=== PATIENT | female | born 1940 | race Caucasian/White ===

== ENCOUNTER 2021-02-12 09:04 | Emergency (ER) | payer MEDICARE, MEDICAID, SELFPAY ==
[2021-02-12] VITALS (10 sets, daily range): BP systolic 135–166; BP diastolic 60–86; PULSE 71–86; RESP 18–19; TEMP 36.9; O2SAT 94–100
--- NOTE | ~2021-02-12 | CT_ITS ---
EXAMINATION: CT abdomen pelvis w con EXAM DATE: 02/12/2021 10:35 INDICATION: Epigastric abdominal pain, nausea. On antibiotics for cholecystitis. TECHNIQUE: Spiral CT of the abdomen and pelvis was performed following intravenous injection of 100 m L Omnipaque 350. Axial, coronal and sagittal images of the abdomen and pelvis were reviewed. The do se-length product (DLP) for this examination was 908.26 mGy-cm. The exposure was tailored according to patient size (auto mA exposure control), and iterative reconstruction (ASIR) was used as additiona l dose reduction technique. There is no prior study for comparison. FINDINGS: The liver, spleen, adrenal glands and pancreas are unremarkable. There are gallstones with in an otherwise unremarkable gallbladder. No evidence of obstructive biliary disease. Portal and sp lenic veins are patent. Kidneys enhance symmetrically. There is no hydronephrosis. Bladder, pelvic organs poorly visualized due to metallic artifact from bilateral hip replacements. Possible hysterec kaylynn. There is no retroperitoneal or pelvic lymphadenopathy. There is mild scattered arteriosclerot ic disease. The appendix is normal. There is extensive sigmoid colonic diverticulosis. There is no adjacent infl ammatory change to suggest diverticulitis. There is small sliding gastroesophageal hiatal hernia. Th ere is expected amount of colonic stool. No free intraperitoneal gas. The heart is normal in size . There are no pericardial or pleural effusions. The lung bases are unremarkable. There are no ost eoblastic or osteolytic lesions identified. IMPRESSION: 1. Cholelithiasis, otherwise unremarkable gallbladder without surrounding inflammation. 2. Sigmoid diverticulosis. Reviewed, dictated and finalized at location B. IMPRESSION: 1. Cholelithiasis, otherwise unremarkable gallbladder without surrounding infl ammation. 2. Sigmoid diverticulosis.
--- NOTE | 2021-02-12 09:22 | ECG_ITS ---
Measurements Intervals [place] Rate: 77 P: [place]: 0 QRS: -1 QRSD: 86 T: 123 QT: 376 QTc: 426 Interpretive Statements SINUS RHYTHM NONSPECIFIC ST & T-WAVE ABNORMALITY- HIGH LATERAL LEADS BASELINE ARTIFACT- I, II, III, AVR, AVL, AVF BORDERLINE ECG Electronically Signed On 02-12-2021 15:34:00 CDT by Enrrique Rios D.O.
--- NOTE | 2021-02-12 09:23 | ED.NAVMDI ---
HPI - Nausea/Vomiting/Diarrhea General Chief complaint: Nausea/Vomiting/Diarrhea Stated complaint: NAUSEA Time Seen by Provider: 02/12/21 09:13 Source: patient and EMS Mode of arrival: ambulatory Limitations: other (poor historian) History of Present Illness HPI Narrative: This is a 80-year-old female that presents to the emergency department for nausea. Ongoing over the last couple of days. [facility] reports that she is currently on antibiotics for cholecystitis. Patient does not report being seen at another facility, and is unsure why she is on antibiotics. Denies fever, vomiting, diarrhea, or dysuria. I did speak with nurse taking care of patient who reports she was started on Levaquin and Flagyl yesterday for presumptive cholecystitis. Related Data Allergies Allergy/AdvReac Type Severity Reaction Status Date / Time Penicillins Allergy Rash Verified 02/12/21 09:09 Review of Systems Review of Systems: CONSTITUTIONAL: Denies fever CARDIOVASCULAR: Denies chest pain RESPIRATORY: Denies dyspnea. GASTROINTESTINAL: Reports abdominal pain, nausea. Denies vomiting, or diarrhea. GENITOURINARY: Denies dysuria or hematuria. All systems reviewed & are unremarkable except as noted in HPI and below PMFSH Past Medical History Medical History (Updated 02/12/21 @ 12:30 by Deyanira Adame PA-C) History of gastroesophageal reflux (GERD) History of hypertension Social History Social History (Updated 02/12/21 @ 09:25 by Deyanira Adame PA-C) Smoking status: Never smoker Exam Narrative: GENERAL: Elderly, well-nourished, and in no acute distress. HEAD: Normocephalic, atraumatic. EYES: EOMI. CHEST: Clear to auscultation. No respiratory distress. No wheezes rales or rhonchi HEART: Regular rate and rhythm. No murmur heard. Normal peripheral pulses. ABDOMEN: Soft, nondistended, normal active bowel sounds. Mild tenderness to palpation in epigastrium, without guarding EXTREMITIES: Normal range of motion. No edema. SKIN: Warm, dry, no rash. NEURO: No focal deficits. Alert and oriented x3. PSYCH: Normal mood and affect RECTAL: Hemoccult negative Course Consultations Consultation #1: Spoke with TIERA Montelongo at [place] about patient and workup Date: 02/12/21 Time: 11:40 Vital Signs Vital signs: Vital Signs Temperature 98.5 F 02/12/21 09:04 Pulse Rate 77 02/12/21 09:04 Respiratory Rate 18 02/12/21 09:04 Blood Pressure 164/76 H 02/12/21 09:04 Pulse Oximetry 96 02/12/21 09:04 Temperature 98.5 F 02/12/21 09:04 Pulse Rate 86 02/12/21 11:31 Respiratory Rate 18 02/12/21 09:04 Blood Pressure 140/74 02/12/21 11:31 Pulse Oximetry 96 02/12/21 09:04 MDM - Nausea/Vomiting/Diarrhea MDM Narrative Medical decision making narrative: Patient presents to the ER for nausea and epigastric discomfort present over the last couple of days. She is afebrile and nontoxic-appearing. Vitals are stable. CBC is without leukocytosis. Does show normocytic anemia with a hemoglobin of 9.4. Patient does report history of anemia. She is Hemoccult negative. Metabolic panel with evidence of some kidney dysfunction. No acute electrolyte derangements. Once again unsure if this is chronic for her as I do not have any recent labs. Lipase is normal. UA without evidence of infection. CT scan of the abdomen and pelvis shows cholelithiasis without evidence of cholecystitis. Shows sigmoid diverticulosis. Patient was updated on case findings. Reports relief with [facility]. Spoke with TIERA Montelongo at [place] about patient and workup. Patient is stable and felt appropriate for further outpatient evaluation. She was given warnings to return to the ER Lab Data Result diagrams: 02/12/21 09:25 02/12/21 09:26 Labs: Lab Results 02/12/21 02/12/21 02/12/21 Range/Units 09:25 09:26 11:23 WBC 9.7 (4.5-10.0) K/mm3 RBC 3.66 L (4.2-5.4) M/mm3 Hgb 9.4 L (12.0-15.0) g/dL Hct 30.6 L (37.0-
[2021-02-12 09:38] LABS: Basophils Percent Auto 0.4 % (0.2-1.2); Eosinophils Absolute Auto 0.1 K/mm3 (0-0.3); Eosinophils Percent Auto 0.9 % (0-4.4); Hematocrit 30.6 % (37.0-47.0); Hemoglobin 9.4 g/dL (12.0-15.0); Immature Granulocyte Absolute 0.06 K/mm3 (0.00-0.031); Immature Granulocyte Percent A 0.6 % (0-0.5); Lymphocytes Absolute Auto 1.24 K/mm3 (0.9-3.2); Lymphocytes Percent Auto 12.8 % (18.3-44.2); Mean Corpuscular HGB Conc 30.7 g/dl (32-36); Mean Corpuscular Hemoglobin 25.7 pg (26-34); Mean Corpuscular Volume 83.6 fl (80-100); Monocytes Absolute Auto 0.7 K/mm3 (0.1-0.6); Monocytes Percent Auto 7.2 % (2.6-8.5); Neutrophils Absolute Auto 7.6 K/mm3 (1.3-6.7); Neutrophils Percent Auto 78.1 % (45.5-73.1); Platelet Count Result 221 k/mm3 (150-375); Red Blood Count 3.66 M/mm3 (4.2-5.4); White Blood Count 9.7 K/mm3 (4.5-10.0)
[2021-02-12] MEDS: ONDANSETRON INJ 4 MG/2 ML VIAL IV PUSH (10:06)
[2021-02-12 10:19] LABS: Alanine Aminotransferase 14 U/L (4-35); Albumin Level 3.7 g/dL (3.5-5.1); Alkaline Phosphatase 87 U/L (38-126); Anion Gap 7 mmol/L (8-16); Aspartate Amino Transferase 44 U/L (14-36); Bilirubin,Total 0.4 mg/dL (0.2-1.3); Blood Urea Nitrogen 26 mg/dL (7-17); Calcium 8.6 mg/dL (8.4-10.2); Carbon Dioxide 30 mmol/L (22-30); Chloride 101 mmol/L (98-107); Estimated CRCL calculation 26 ml/min; Estimated Glomerular Filt Rate 31; Glucose 135 mg/dL (65-110); Lipase 70 U/L (23-300); Potassium 4.1 mmol/L (3.4-5.0); Sodium 138 mmol/L (137-145)
--- NOTE | 2021-02-12 10:56 | PC.NURSE ---
Patient given bedside commode and is attempting to give urine specimen.
[2021-02-12 12:10] LABS: Add Urine Microscopic? YES; Appearance Urine Clear (Clear); Bilirubin Urine Negative (Negative); Blood Urine Negative (Negative); Color Urine Yellow (Yellow); Glucose Urine UA Negative (Negative); Ketones Urine Negative (Negative); Leukocyte Esterase Ur Negative LEU/UL (Negative); Nitrate Urine Negative (Negative); Protein Urine 2+ mg/dL (Negative); Specific Grav Ur 1.024 (1.001-1.035); Squamous Epithelial Cell Urine Few /hpf (Few); Urobilinogen Urine Negative mg/dL (<2.0); WBC Urine 0-3 /hpf
== END 2021-02-12 15:38 ==
PROVIDERS: Physician Assistant; Emergency Provider Family Medicine
DX: R11.0 Nausea (principal); N28.9 Disorder of kidney and ureter, unspecified; D64.9 Anemia, unspecified; K80.20 Calculus of gallbladder without cholecystitis without obstruction; K21.9 Gastro-esophageal reflux disease without esophagitis; I10 Essential (primary) hypertension; K57.30 Diverticulosis of large intestine without perforation or abscess without bleeding; R94.31 Abnormal electrocardiogram [ECG] [EKG]
CPT/HCPCS: 36415; 74177; 80053; 81001; 83690; 85025; 93005; 96374; 99284; J2405; Q9967

== ENCOUNTER 2022-02-19 11:02 | Inpatient (IN) | payer MEDICARE, MEDICAID, SELFPAY ==
[2022-02-19] VITALS (13 sets, daily range): BP systolic 119–156; BP diastolic 59–88; PULSE 70–82; RESP 16–20; TEMP 36.5–37.5; O2SAT 91–99
--- NOTE | ~2022-02-19 | XR_ITS ---
EXAMINATION: XR chest 2V DATE: 02/19/2022 11:30 INDICATION: Cough. Dyspnea. TECHNIQUE: Frontal and lateral views of the chest were obtained. COMPARISON: CT abdomen and pelvis 02/12/2021 FINDINGS: There is mild atelectasis at left lung base. No pleural effusion or pneumothorax. The heart size is normal. IMPRESSION: 1. Mild atelectasis at left lung base. Reviewed, dictated and finalized at location A.
--- NOTE | ~2022-02-19 | US_ITS ---
US renal BI 02/20/2022 09:58 Procedure: Realtime transabdominal ultrasound of the kidneys and bladder. Indication: Renal failure Comparison: No prior studies for comparison. Findings: Renal echotexture is normal bilaterally without hydronephrosis, contour deforming mass or r enal calculus. The right kidney measures 9.4 cm and left kidney measures 10.2 cm. Bladder within nor mal limits. Impression: 1: Unremarkable renal ultrasound. No stones, masses or hydronephrosis. Reviewed, dictated and finalized at location A. Impression: 1: Unremarkable renal ultrasound. No stones, masses or hydronephrosis.
--- NOTE | 2022-02-19 11:09 | ECG_ITS ---
Measurements Intervals [place] Rate: 72 P: 76 MO: 171 QRS: -15 QRSD: 89 T: 133 QT: 400 QTc: 440 Interpretive Statements SINUS RHYTHM ATRIAL PREMATURE COMPLEX ST-T WAVE ABNORMALITY IN HIGH LATERAL LEADS- CONSIDER ISCHEMIA BASELINE ARTIFACT- I, III, AVL ABNORMAL ECG COMPARED TO ECG 02/12/2021 10:06:22 ST-T WAVE ABNORMALITY IN HIGH LATERAL LEADS- CONSIDER ISCHEMIA NOW PRESENT Electronically Signed On 02-19-2022 11:47:23 CDT by Enrrique Rios D.O.
[2022-02-19 11:46] LABS: Basophils Absolute Auto 0.1 K/mm3 (0.0-0.1); Basophils Percent Auto 0.4 % (0.2-1.2); Eosinophils Absolute Auto 0.1 K/mm3 (0-0.3); Eosinophils Percent Auto 0.5 % (0-4.4); Hematocrit 32.5 % (37.0-47.0); Hemoglobin 10.5 g/dL (12.0-15.0); Immature Granulocyte Percent A 0.8 % (0-0.5); Lymphocytes Absolute Auto 2.05 K/mm3 (0.9-3.2); Lymphocytes Percent Auto 16.5 % (18.3-44.2); Mean Corpuscular HGB Conc 32.3 g/dl (32-36); Mean Corpuscular Hemoglobin 26.8 pg (26-34); Mean Corpuscular Volume 82.9 fl (80-100); Mean Platelet Volume 10.7 fl (7.4-10.4); Monocytes Absolute Auto 1.2 K/mm3 (0.1-0.6); Neutrophils Percent Auto 71.8 % (45.5-73.1); Platelet Count Result 250 k/mm3 (150-375); Red Blood Count 3.92 M/mm3 (4.2-5.4); Red Cell Distribution Width 13.3 % (11.5-14.5); White Blood Count 12.5 K/mm3 (4.5-10.0)
[2022-02-19 11:58] LABS: Alanine Aminotransferase 20 U/L (6-35); Albumin Level 3.6 g/dL (3.5-5.1); Alkaline Phosphatase 105 U/L (38-126); Anion Gap 11 mmol/L (8-16); Aspartate Amino Transferase 32 U/L (14-36); Bilirubin,Total 0.5 mg/dL (0.2-1.3); Blood Urea Nitrogen 52 mg/dL (7-17); Calcium 8.5 mg/dL (8.4-10.2); Carbon Dioxide 26 mmol/L (22-30); Chloride 104 mmol/L (98-107); Estimated Glomerular Filt Rate 16; Glucose 192 mg/dL (65-110); Potassium 3.6 mmol/L (3.4-5.0); Sodium 141 mmol/L (137-145)
--- NOTE | 2022-02-19 12:22 | ED.GENADULT ---
HPI - General Adult General Chief complaint: Shortness of Breath/Dyspnea Stated complaint: SOB Time Seen by Provider: 02/19/22 11:58 History of Present Illness HPI narrative: 81-year-old female presenting the emergency department for evaluation of reported hypoxia into the 80s. Patient is reportedly not on oxygen at the care facility. Patient was placed on 3 L and has since been saturating at 97%. In the emergency department patient did states she does have a cough but states this is a chronic cough. Patient states she does feel tired but denies any other complaints at this time. Patient has history of high cholesterol, peripheral vascular disease, renal failure, hypertension, GERD, type 2 diabetes. Related Data Allergies Allergy/AdvReac Type Severity Reaction Status Date / Time Penicillins Allergy Rash Verified 02/19/22 17:45 Review of Systems Review of Systems: CONSTITUTIONAL: Reports feeling tired EYES: Denies visual changes, redness, or discharge. ENT: Denies rhinorrhea, congestion, sore throat, or otalgia. CARDIOVASCULAR: Denies chest pain, palpitations, or edema. RESPIRATORY: Denies cough or dyspnea. GASTROINTESTINAL: Denies abdominal pain, nausea, vomiting, or diarrhea. GENITOURINARY: Denies dysuria or hematuria. SKIN: Denies rash or itching. MUSCULOSKELETAL: Denies back pain, joint pain, or myalgia. NEUROLOGIC: Denies headache, numbness, or weakness. [facility] Past Medical History Medical History Anemia Anxiety Chronic GERD CRF (chronic renal failure) Depression Diabetic acidosis, type II History of gastroesophageal reflux (GERD) History of hypertension Hyperlipidemia PVD (peripheral vascular disease) Surgical History Surgical History H/O total hip arthroplasty uzair History of tonsillectomy Hx of cholecystectomy Hx of colectomy Family History Family History Mother Acute myocardial infarction Sibling Hypertension Diabetes mellitus Depression Social History Social History (Updated 02/19/22 @ 17:51 by Melvi Barber NP) Social History: The patient has 4 children. She is . Her daughter Cydney mukherjee is the durable power workers compensation defense attorney for healthcare. The patient was a homemaker. She is lifelong nonsmoker. She does not use any alcohol marijuana or illicit drugs. Code status full code Smoking status: Never smoker Alcohol intake: never Substance use: never Substance use type: does not use Spiritual care concerns: No Exam Narrative: APPEARANCE: Ill-appearing HEAD: normocephalic, atraumatic. EYES: PERRLA/EOMI, conjunctivae clear. NOSE: Normal no drainage THROAT: Pharynx clear, no exudate. NECK: Supple. No adenopathy, no masses. RESPIRATORY: Airway patent, respirations nonlabored. Clear to auscultation bilaterally, no rales, rhonchi, wheezing. CARDIOVASCULAR: Regular rate and rhythm without murmurs rubs or gallops. ABDOMINAL: Soft, nontender, nondistended, normal bowel sounds MUSCULOSKELETAL: Moves all extremities. Strength/ROM intact, No edema, No calf tenderness. NEURO: Alert. Cranial nerves II through XII intact. Grossly intact SKIN: Warm, dry. Normal Color Course Course Emergency Course: Patient was hypoxic upon arrival to the emergency department patient was saturating well on her 3 L of oxygen by nasal cannula. Patient does not normally have an O2 requirement. Patient was afebrile with a leukocytosis of 12.5. Patient does have an elevated creatinine at 2.9. Patient was negative for influenza RSV and COVID. Case was discussed with hospitalist and patient was accepted for admission. Patient and family were updated on the results of the work-up and plan for admission. Patient was stable at time of admission. Vital Signs Vital signs: Vital Signs Temperature 98.9 F 02/19/22 11:05 Pulse Rate
[2022-02-19 12:51] LABS: Influenza A QL RT-PCR Negative (Negative); Influenza B QL RT-PCR Negative (Negative); SARS-CoV-2 RNA PCR Negative
[2022-02-19 13:59] LABS: Alveolar/Arterial O2 Gradient 121.9 mmHg; Base Excess ABG -0.4 mEq/l (+/-2.0); Fractional Inspired Oxygen 36 %; HCO3 ABG 24.4 mEq/l (22.0-26.0); Oxygen Content ABG 15.5 %vol (16.0-22.0); Oxygen Saturation ABG 96.7 % (95.0-100.0); Oxyhemoglobin 95.8 % THb (90.0-100.0); PCO2 ABG 40.4 mmHg (35.0-45.0); PO2 ABG 87.9 mmHg (80.0-100.0); PO2 FiO2 Ratio Arterial Blood 2.44 %; Total Hemoglobin 11.4 g/dL (12.0-18.0); pH ABG 7.398 (7.350-7.450)
[2022-02-19 14:00] LABS: Device NASAL CANNULA; Modified Allen's Test Pass; Site Drawn RIGHT RADIAL
--- NOTE | 2022-02-19 14:36 | PM.IMHP ---
H&P: HPI History of Present Illness Date/Time: 02/19/22 14:36 Chief Complaint: Shortness of breath Narrative: This is a 81-year-old female patient who came in for evaluation of hypoxia in the 80s. The patient was placed on oxygen at 3 L per nasal cannula and increase her saturations at 97%. The patient does not typically wear oxygen. Her daughter is at the bedside answering questions for her. She denies any fever chills or any nausea vomiting. Chest x-ray was read as mild atelectasis at left lung base. White count 12.5. H&H is 10.5 and 32.5. Which is above the baseline. Creatinine 2.9 which was 1.61 month ago. GFR 16. Glucose is 192. Influenza A/B and COVID negative. The patient is being admitted to inpatient status on the date of service of 02/19/2022. Review of Systems Review of Systems: See HPI All systems reviewed & are unremarkable except as noted in HPI and below Constitutional: Constitutional: Reports as per HPI and Reports no additional constitutional complaints Eyes: Eyes: Reports as per HPI and Reports no additional eye complaints ENT: Reports system reviewed and no additional complaints, except as documented and Reports Normal hearing present Cardiovascular: Cardiovascular: Reports no additional cardiovascular complaints Respiratory: Respiratory: Reports no additional respiratory complaints and Reports no additional respiratory complaints Gastrointestinal: Gastrointestinal: Reports as per HPI and Reports no additional gastrointestinal complaints Musculoskeletal: Musculoskeletal: Reports no additional musculoskeletal complaints Integumentary/Breasts: Skin/Breast: Reports system reviewed and no additional complaints, except as docu and Reports as per HPI Neurologic: Reports system reviewed and no additional complaints, except as documented, Reports as per HPI and Reports Normal hearing present Psychiatric: Psychiatric: Reports no additional psychiatric complaints and Reports as per HPI Endocrine: Endocrine: Reports no additional endocrine complaints Hematologic/Lymphatic: Hematologic/Lymphatic: Reports no additional hematologic/lymphatic complaints Allergic/Immunologic: Allergic/Immunologic: Reports no additional allergic/immunologic complaints [facility] Past Medical History Medical History Anemia Anxiety Chronic GERD CRF (chronic renal failure) Depression Diabetic acidosis, type II History of gastroesophageal reflux (GERD) History of hypertension Hyperlipidemia PVD (peripheral vascular disease) Surgical History Surgical History H/O total hip arthroplasty uzair History of tonsillectomy Hx of cholecystectomy Hx of colectomy Family History Family History Mother Acute myocardial infarction Sibling Hypertension Diabetes mellitus Depression Social History Social History (Updated 02/19/22 @ 17:51 by Melvi Barber NP) Social History: The patient has 4 children. She is . Her daughter Cydney mukherjee is the durable power research attorney for healthcare. The patient was a homemaker. She is lifelong nonsmoker. She does not use any alcohol marijuana or illicit drugs. Code status full code Smoking status: Never smoker Alcohol intake: never Substance use: never Substance use type: does not use Spiritual care concerns: No Meds Home Medications and Allergies Allergies Allergy/AdvReac Type Severity Reaction Status Date / Time Penicillins Allergy Rash Verified 02/19/22 17:45 Vital Signs Vital Signs - 24 hr 02/19/22 11:05 02/19/22 11:10 02/19/22 12:06 Temperature 37.2 C Pulse Rate 70 71 71 Respiratory Rate 17 16 Blood Pressure 147/78 H 128/88 Pulse Oximetry 97 97 Oxygen Delivery Nasal Cannula Oxygen Flow Rate 3 02/19/22 13:16 02/19/22 14:18 02/19/22 12:00 Temperature 37.5 C
[2022-02-19 15:05] LABS: RSV RNA, RT-PCR Negative (Negative)
--- NOTE | 2022-02-19 15:34 | PC.NURSE ---
Lunch tray ordered for pt at this time.
--- NOTE | 2022-02-19 17:44 | ADMGEN ---
This patient, Sierra Danielle, was admitted to Medical Room 253-01. Patient/family oriented to hospital policies and general routines including ID bracelet, bed and alarms, visiting hours, pain management, procedures, bathroom and other care routines, personal items, smoking policy, room service/diet, and visiting hours. Information on how to activate the Rapid Response Team has been discussed. Patient/Family are encouraged to report perceived risks to care and to ask questions if they do not understand what they are told or what they should do.
--- NOTE | 2022-02-19 18:59 | PC.NURSE ---
This RN called [facility] in [place] upon patients admission for medications and patients past medical history. Facility stated they would fax information over. Nothing received at this time. Patient unable to provide information stating she takes no medications at all .
--- NOTE | 2022-02-19 20:17 | PM.CNNEP ---
Assessment and Plan Assessment and plan (1) CRF (chronic renal failure): Code(s): N18.9 - Chronic kidney disease, unspecified Status: Acute Assessment and Plan: the patient has chronic kidney disease. She had a creatinine of 1.6 back in 2020 and now it is up to 2.9. We do not have any intervening values. [facility]. So how much of this is acute and how much of this is just progression of chronic kidney disease is unclear. While we are waiting for the old labs to come back will check a renal ultrasound, urine electrolytes and eosinophils. The patient has never seen a executive legal secretary. She probably has not had an initial evaluation for chronic kidney disease so will get serology and immunofixation. Will see how the patient does with the antibiotics and supportive care. (2) History of hypertension: Code(s): Z86.79 - Personal history of other diseases of the circulatory system Status: Acute Assessment and Plan: the patient has hypertension. Her blood pressure is doing pretty well between 120 and 150. (3) Pneumonia: Code(s): J18.9 - Pneumonia, unspecified organism Status: Acute Assessment and Plan: The patient is getting Zithromax and ceftriaxone. She is on some oxygen. (4) Anemia: Code(s): D64.9 - Anemia, unspecified Status: Acute Assessment and Plan: Hemoglobin is somewhat low. No need for Epogen at this point. (5) Diabetes: Code(s): E11.9 - Type 2 diabetes mellitus without complications Status: Acute Assessment and Plan: She is being followed by the hospitalists for this History of Present Illness Reason for Consult Consult date: 02/19/22 Chief Complaint Chief complaint: PNEUMONIA,HYPOXIA,EVANGELISTA History of Present Illness Narrative: Mounika is a very pleasant 81-year-old lady who has multiple medical problems including anemia, GERD, peripheral vascular disease, hyperlipidemia, hypertension, GERD, diabetes, depression, and chronic kidney disease. The patient came into the hospital because of cough and shortness of breath. She lives in a residential facility. she has had a cough with some production over the last few days. This is gradually gotten worse. She was found to have a low O2 sat so she was sent over to the emergency room for further evaluation. In the emergency room she Was evaluated. A chest x-ray showed atelectasis or some process in the left lung base. She was felt to have pneumonia. She was swabbed for COVID and also for flu and these were negative. she has been placed on antibiotics and she has been given some oxygen by nasal cannula. Currently the patient feels okay. She is resting comfortably in bed without much shortness of breath. She denies any pain anywhere. She has not been coughing up any blood or blowing blood out of her nose. She has no bloody foamy cloudy or smelly urine. No history of kidney stones. Review of Systems Constitutional: Constitutional: Reports no additional constitutional complaints Eyes: Eyes: Reports no additional eye complaints ENT: Reports system reviewed and no additional complaints, except as documented Cardiovascular: Cardiovascular: Reports no additional cardiovascular complaints Respiratory: Respiratory: Reports no additional respiratory complaints Gastrointestinal: Gastrointestinal: Reports no additional gastrointestinal complaints Genitourinary: Genitourinary: Reports no additional female genitourinary complaints Musculoskeletal: Musculoskeletal: Reports no additional musculoskeletal complaints Integumentary/Breasts: Skin/Breast: Reports system reviewed and no additional complaints, except as docu Neurologic: Reports system reviewed and no additional complaints, except as documented Psychiatric: Psychiatric: Reports no additional psychiatric complaints Endocrine: Endocrine: Reports no additional
[2022-02-19 21:00] LABS: Glucose Point of Care 200 mg/dl (65-105)
[2022-02-19 21:32] LABS: Creatine Kinase 413 U/L (30-135)
[2022-02-19 21:40] LABS: Complement C3 154 mg/dL (88-165); Erythrocyte Sedimentation Rate 98 mm/hr (0-20)
[2022-02-19 21:51] LABS: Parathyroid Intact 187.4 pg/mL (7.5-53.5)
--- NOTE | 2022-02-19 22:04 | PCRCNOTE ---
window of time for administration has passed. see next available administration.
[2022-02-19] MEDS: PANTOPRAZOLE SODIUM IV 40 MG VIAL IV PUSH (22:16)
[2022-02-20] VITALS (14 sets, daily range): BP systolic 139–155; BP diastolic 66–72; PULSE 82–99; RESP 16–20; TEMP 36.8–36.9; O2SAT 91–98; BMI 36.6
[2022-02-20] MEDS: ALBUTEROL SULFATE NEB 2.5 MG/3 ML INH INHALATION ×4 (03:24→21:07)
[2022-02-20] MEDS: IPRATROPIUM BR 0.02% INH SOLN 0.5 MG/2.5 ML VIAL INHALATION ×4 (03:25→21:07)
[2022-02-20 06:05] LABS: Basophils Absolute Auto 0.1 K/mm3 (0.0-0.1); Basophils Percent Auto 0.5 % (0.2-1.2); Eosinophils Absolute Auto 0.2 K/mm3 (0-0.3); Eosinophils Percent Auto 1.8 % (0-4.4); Hematocrit 30.7 % (37.0-47.0); Hemoglobin 9.8 g/dL (12.0-15.0); Immature Granulocyte Absolute 0.17 K/mm3 (0.00-0.031); Immature Granulocyte Percent A 1.5 % (0-0.5); Lymphocytes Percent Auto 16.5 % (18.3-44.2); Mean Corpuscular HGB Conc 31.9 g/dl (32-36); Mean Corpuscular Hemoglobin 26.6 pg (26-34); Mean Corpuscular Volume 83.4 fl (80-100); Mean Platelet Volume 10.8 fl (7.4-10.4); Monocytes Absolute Auto 1.1 K/mm3 (0.1-0.6); Monocytes Percent Auto 9.1 % (2.6-8.5); Neutrophils Absolute Auto 8.1 K/mm3 (1.3-6.7); Neutrophils Percent Auto 70.6 % (45.5-73.1); Platelet Count Result 239 k/mm3 (150-375); Red Blood Count 3.68 M/mm3 (4.2-5.4); Red Cell Distribution Width 13.2 % (11.5-14.5); White Blood Count 11.5 K/mm3 (4.5-10.0)
[2022-02-20 06:18] LABS: Alanine Aminotransferase 19 U/L (6-35); Albumin Level 3.4 g/dL (3.5-5.1); Alkaline Phosphatase 99 U/L (38-126); Anion Gap 13 mmol/L (8-16); Aspartate Amino Transferase 27 U/L (14-36); Bilirubin,Total 0.4 mg/dL (0.2-1.3); Blood Urea Nitrogen 51 mg/dL (7-17); Calcium 8.3 mg/dL (8.4-10.2); Carbon Dioxide 25 mmol/L (22-30); Chloride 103 mmol/L (98-107); Estimated Glomerular Filt Rate 14; Glucose 171 mg/dL (65-110); Lactate Dehydrogenase 208 U/L (120-246); Lipase 115 U/L (23-300); Potassium 3.5 mmol/L (3.4-5.0); Sodium 141 mmol/L (137-145)
[2022-02-20 06:22] LABS: Lactic Acid Reflex 0.6 mmol/L (0.7-2.0)
[2022-02-20 06:28] LABS: Hemoglobin A1C 8.1 % (<5.7)
[2022-02-20 08:43] LABS: Glucose Point of Care 188 mg/dl (65-105)
[2022-02-20 08:52] LABS: Glucose Point of Care 188 mg/dl (65-105)
[2022-02-20] MEDS: PARoxetine 20 MG TABLET 40 MG PO (10:17)
[2022-02-20] MEDS: PANTOPRAZOLE SODIUM IV 40 MG VIAL IV PUSH ×2 (10:17→20:19)
[2022-02-20] MEDS: GLIMEPIRIDE 2 MG TABLET 4 MG PO (10:17)
[2022-02-20] MEDS: FAMOTIDINE 20 MG TABLET PO (10:17)
[2022-02-20] MEDS: FERROUS SULFATE 324 MG TABLET PO (10:18)
[2022-02-20] MEDS: NIFEdipine 30 MG TAB.ER.24 PO (10:18)
[2022-02-20] MEDS: SENNA/DOCUSATE SODIUM TABLET 1 TAB PO ×2 (10:18→17:50)
[2022-02-20] MEDS: carvediloL 3.125 MG TABLET PO (10:19)
[2022-02-20 12:19] LABS: Glucose Point of Care 302 mg/dl (65-105)
[2022-02-20] MEDS: INSULIN ASPART (*BKC) 100 UNITS/ML SUB-Q ×2 (12:20→17:50)
--- NOTE | 2022-02-20 12:47 | PM.IMPN ---
Progress Note: A&P Assessment and Plan (1) Hypoxia: Code(s): R09.02 - Hypoxemia Status: Acute Assessment and Plan: -the patient is currently on 3 L. She had a chest x-ray that shows mild atelectasis at the left lung base. -patient has thrombocytosis. Sputum and blood cultures are pending. -wean off of oxygen as necessary. -the patient was empirically started on community-acquired pneumonia antibiotic stewardship due to her hypoxia. -unable to perform CTA due to acute on chronic renal failure. 02/20/2022 interval history: patient is 81-year-old female resident of nursing was brought to the emergency department with shortness of bread patient is found to have pneumonia and being treated with ceftriaxone and azithromycin for community-acquired pneumonia will continue to monitor have PT OT evaluate the, also has a history of chronic kidney disease seen by Nephrology and further recommendation to follow. patient is a poor historian. (2) Pneumonia: Code(s): J18.9 - Pneumonia, unspecified organism Status: Acute Assessment and Plan: The patient was placed on azithromycin and Rocephin -sputum and blood cultures are pending -unable to do CTA due to her renal failure - The patient has mild leukocytosis. -continue with nebulizer treatments. (3) EVANGELISTA (acute kidney injury): Code(s): N17.9 - Acute kidney failure, unspecified Status: Acute Assessment and Plan: -hold nephrotoxic medication. -the patient could be dehydrated. -gently hydrate. -renal ultrasound has been ordered. -nephrology has been consulted. (4) PVD (peripheral vascular disease): Code(s): I73.9 - Peripheral vascular disease, unspecified Status: Acute Assessment and Plan: -continue with current home treatment. (5) Hyperlipidemia: Code(s): E78.5 - Hyperlipidemia, unspecified Status: Acute Assessment and Plan: -patient's home medications have not been verified. (6) Diabetic acidosis, type II: Code(s): E11.10 - Type 2 diabetes mellitus with ketoacidosis without coma Status: Acute Assessment and Plan: -Accu-Cheks AC and HS -sliding scale insulin. -A1c if not checked in last 3 months. (7) Depression: Code(s): F32.A - Depression, unspecified Status: Acute Assessment and Plan: -continue with patient's home medications her medications have not been reconciled. (8) Chronic GERD: Code(s): K21.9 - Gastro-esophageal reflux disease without esophagitis Status: Acute Assessment and Plan: -iv protonix (9) Anxiety: Code(s): F41.9 - Anxiety disorder, unspecified Status: Acute Assessment and Plan: -continue with home medications. (10) Anemia: Code(s): D64.9 - Anemia, unspecified Status: Acute Assessment and Plan: -could be related to her chronic renal failure. -the patient is at her baseline. -continue to monitor. Patient has no active bleeding at this time. (11) History of hypertension: Code(s): Z86.79 - Personal history of other diseases of the circulatory system Status: Acute Subjective Date/time seen: 02/20/22 12:47 Chief Complaint: Shortness of breath HPI-Narrative: This is a 81-year-old female patient who came in for evaluation of hypoxia in the 80s.? The patient was placed on oxygen at 3 L per nasal cannula and increase her saturations at 97%.? The patient does not typically wear oxygen.? Her daughter is at the bedside answering questions for her.? She denies any fever chills or any nausea vomiting.? Chest x-ray was read as mild atelectasis at left lung base.? White count 12.5.? H&H is 10.5 and 32.5.? Which is above the baseline.? Creatinine 2.9 which was 1.61 month ago.? GFR 16.? Glucose is 192.? Influenza A/B and COVID negative.? The patient is being admitted to inpatient status on the date of service of 02/19/2022. 02/20/2022 interval history: patient is 9
--- NOTE | 2022-02-20 14:50 | PC.NURSE ---
On 02/20/22, the student, [Deyanira Monzon], provided care and completed [facility] documentation on this patient. I have reviewed the student's documentation and agree with the findings.
--- NOTE | 2022-02-20 15:01 | PM.PNNEP ---
Progress Note: A&P Assessment and Plan (1) CRF (chronic renal failure): Code(s): N18.9 - Chronic kidney disease, unspecified Status: Acute Assessment and Plan: the patient has chronic kidney disease. She had a creatinine of 1.6 back in 2020 and now it is up to 2.9. We do not have any intervening values. Will try to get some records from the long-term. So how much of this is acute and how much of this is just progression of chronic kidney disease is unclear. renal sono normal urines I ordered is pending Complements are okay she feels better today (2) History of hypertension: Code(s): Z86.79 - Personal history of other diseases of the circulatory system Status: Acute Assessment and Plan: the patient has hypertension. BP 119 to 156 she is on nifed 30 and carv 3.125. pulse 82. will inc carv. (3) Pneumonia: Code(s): J18.9 - Pneumonia, unspecified organism Status: Acute Assessment and Plan: The patient is getting Zithromax and ceftriaxone. She is on some oxygen. cough still there but feels better. (4) Anemia: Code(s): D64.9 - Anemia, unspecified Status: Acute Assessment and Plan: Hemoglobin is somewhat low. No need for Epogen at this point. (5) Diabetes: Code(s): E11.9 - Type 2 diabetes mellitus without complications Status: Acute Assessment and Plan: She is being followed by the hospitalists for this Subjective Date/time seen: 02/20/22 15:01 Interval history: alert, feels better. cough but no sob. Review of Systems Cardiovascular: Cardiovascular: Reports no additional cardiovascular complaints Respiratory: Respiratory: Reports no additional respiratory complaints Gastrointestinal: Gastrointestinal: Reports no additional gastrointestinal complaints Genitourinary: Genitourinary: Reports no additional female genitourinary complaints Exam Narrative: WDWN in NAD skin no rash head ncat lungs clear cor reg no rub abd BS+ nontender and soft ext no edema. Objective Data Vital Signs Vital Signs: Vital Signs - 24 hr 02/19/22 15:28 02/19/22 16:12 02/19/22 16:52 Temperature 36.5 C Pulse Rate 72 74 76 Respiratory Rate 18 16 18 Blood Pressure 152/85 H 136/69 136/69 Pulse Oximetry 98 91 97 Oxygen Delivery Oxygen Flow Rate 02/19/22 17:20 02/19/22 18:50 02/19/22 21:18 Temperature 36.5 C 36.5 C Pulse Rate 77 80 Respiratory Rate 18 16 Blood Pressure 119/59 L 156/66 H Pulse Oximetry 99 97 97 Oxygen Delivery Nasal Cannula Oxygen Flow Rate 3 02/19/22 20:15 02/20/22 03:28 02/20/22 03:29 Temperature Pulse Rate 88 Respiratory Rate 18 Blood Pressure Pulse Oximetry 96 91 Oxygen Delivery Nasal Cannula Nasal Cannula Oxygen Flow Rate 3 3 02/20/22 03:35 02/20/22 05:43 02/20/22 08:24 Temperature 36.9 C Pulse Rate 89 89 Respiratory Rate 18 16 Blood Pressure 155/68 H Pulse Oximetry 98 91 Oxygen Delivery Room Air Oxygen Flow Rate 02/20/22 08:24 02/20/22 08:36 02/20/22 10:19 Temperature Pulse Rate 89 92 82 Respiratory Rate 20 20 Blood Pressure Pulse Oximetry Oxygen Delivery Oxygen Flow Rate 02/20/22 11:07 02/20/22 08:30 02/20/22 11:26 Temperature Pulse Rate Respiratory Rate Blood Pressure Pulse Oximetry 91 Oxygen Delivery Room Air Room Air Room Air Oxygen Flow Rate 02/20/22 14:18 02/20/22 14:32 02/20/22 14:32 Temperature 36.9 C Pulse Rate 84 91 82 Respiratory Rate 20 18 19 Blood Pressure 144/66 H Pulse Oximetry 91 Oxygen Delivery Oxygen Flow Rate Intake/Output Intake/Output: Intake & Output 02/17/22 02/18/22 02/19/22 02/20/22 23:59 23:59 23:59 23:59 Intake Total 450 460 Balance 450 460 Meds/Results Medications: Active Medications Generic Name Dose Route Start Last Admin Trade Name Freq PRN Reason Stop Dose Admin Acetaminophen 500
[2022-02-20 17:22] LABS: Glucose Point of Care 230 mg/dl (65-105)
[2022-02-20] MEDS: ATORVASTATIN 10 MG TABLET PO (20:19)
[2022-02-20] MEDS: carvediloL 6.25 MG TABLET PO (20:21)
[2022-02-20] MEDS: INSULIN GLARGINE (*BKC) 100 UNITS/ML 10 UNITS SUB-Q (20:24)
[2022-02-20 20:33] LABS: Glucose Point of Care 167 mg/dl (65-105)
[2022-02-21] VITALS (10 sets, daily range): BP systolic 152–164; BP diastolic 57–69; PULSE 70–98; RESP 18–20; TEMP 36.1–36.3; O2SAT 93–98
[2022-02-21] MEDS: ALBUTEROL SULFATE NEB 2.5 MG/3 ML INH INHALATION ×2 (02:25→15:00)
[2022-02-21] MEDS: IPRATROPIUM BR 0.02% INH SOLN 0.5 MG/2.5 ML VIAL INHALATION ×2 (02:25→15:00)
[2022-02-21 05:35] LABS: Hematocrit 31.4 % (37.0-47.0); Hemoglobin 9.9 g/dL (12.0-15.0); Mean Corpuscular HGB Conc 31.5 g/dl (32-36); Mean Corpuscular Hemoglobin 26.9 pg (26-34); Mean Corpuscular Volume 85.3 fl (80-100); Mean Platelet Volume 10.1 fl (7.4-10.4); Platelet Count Result 257 k/mm3 (150-375); Red Blood Count 3.68 M/mm3 (4.2-5.4); Red Cell Distribution Width 13.2 % (11.5-14.5); White Blood Count 10.3 K/mm3 (4.5-10.0)
[2022-02-21 05:38] LABS: Albumin Level 3.4 g/dL (3.5-5.1); Anion Gap 12 mmol/L (8-16); Blood Urea Nitrogen 58 mg/dL (7-17); Carbon Dioxide 24 mmol/L (22-30); Chloride 103 mmol/L (98-107); Estimated CRCL calculation 15 ml/min; Estimated Glomerular Filt Rate 16; Glucose 194 mg/dL (65-110); Phosphorus 4.4 mg/dL (2.5-4.5); Potassium 3.6 mmol/L (3.4-5.0); Sodium 139 mmol/L (137-145)
[2022-02-21 08:20] LABS: Glucose Point of Care 175 mg/dl (65-105)
[2022-02-21] MEDS: FERROUS SULFATE 324 MG TABLET PO (08:35)
[2022-02-21] MEDS: CHOLECALCIFEROL 1,000 UNITS TABLET 2000 UNITS PO (08:37)
[2022-02-21] MEDS: carvediloL 6.25 MG TABLET PO ×2 (08:37→20:12)
[2022-02-21] MEDS: FAMOTIDINE 20 MG TABLET PO (08:38)
[2022-02-21] MEDS: SENNA/DOCUSATE SODIUM TABLET 1 TAB PO ×2 (08:38→16:23)
[2022-02-21] MEDS: PARoxetine 20 MG TABLET 40 MG PO (08:38)
[2022-02-21] MEDS: GLIMEPIRIDE 2 MG TABLET 4 MG PO (08:38)
[2022-02-21] MEDS: NIFEdipine 30 MG TAB.ER.24 PO (08:39)
--- NOTE | 2022-02-21 11:30 | PM.IMPN ---
Progress Note: A&P Assessment and Plan (1) Hypoxia: Code(s): R09.02 - Hypoxemia Status: Acute Assessment and Plan: -the patient is currently on 3 L. She had a chest x-ray that shows mild atelectasis at the left lung base. -patient has thrombocytosis. Sputum and blood cultures are pending. -wean off of oxygen as necessary. -the patient was empirically started on community-acquired pneumonia antibiotic stewardship due to her hypoxia. -unable to perform CTA due to acute on chronic renal failure. 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 patient is a poor historian. (2) Pneumonia: Code(s): J18.9 - Pneumonia, unspecified organism Status: Acute Assessment and Plan: The patient was placed on azithromycin and Rocephin -sputum and blood cultures are pending -unable to do CTA due to her renal failure - The patient has mild leukocytosis. -continue with nebulizer treatments. (3) EVANGELISTA (acute kidney injury): Code(s): N17.9 - Acute kidney failure, unspecified Status: Acute Assessment and Plan: -hold nephrotoxic medication. -the patient could be dehydrated. -gently hydrate. -renal ultrasound has been ordered. -nephrology has been consulted. (4) PVD (peripheral vascular disease): Code(s): I73.9 - Peripheral vascular disease, unspecified Status: Acute Assessment and Plan: -continue with current home treatment. (5) Hyperlipidemia: Code(s): E78.5 - Hyperlipidemia, unspecified Status: Acute Assessment and Plan: -patient's home medications have not been verified. (6) Diabetic acidosis, type II: Code(s): E11.10 - Type 2 diabetes mellitus with ketoacidosis without coma Status: Acute Assessment and Plan: -Accu-Cheks AC and HS -sliding scale insulin. -A1c if not checked in last 3 months. (7) Depression: Code(s): F32.A - Depression, unspecified Status: Acute Assessment and Plan: -continue with patient's home medications her medications have not been reconciled. (8) Chronic GERD: Code(s): K21.9 - Gastro-esophageal reflux disease without esophagitis Status: Acute Assessment and Plan: -iv protonix (9) Anxiety: Code(s): F41.9 - Anxiety disorder, unspecified Status: Acute Assessment and Plan: -continue with home medications. (10) Anemia: Code(s): D64.9 - Anemia, unspecified Status: Acute Assessment and Plan: -could be related to her chronic renal failure. -the patient is at her baseline. -continue to monitor. Patient has no active bleeding at this time. 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 patient is a poor historian. Review of Systems Review of Systems: All systems reviewed & are unremarkable except as noted in HPI and below Exam Narrative: Patient is comfortable, NAD HEENT: eyes a
[2022-02-21 12:06] LABS: Glucose Point of Care 230 mg/dl (65-105)
[2022-02-21] MEDS: INSULIN ASPART (*BKC) 100 UNITS/ML SUB-Q ×2 (12:37→17:39)
--- NOTE | 2022-02-21 13:15 | PC.NURSE ---
On 02/21/22, the student, [Deyanira Monzon], provided care and completed [facility] documentation on this patient. I have reviewed the student's documentation and agree with the findings.
--- NOTE | 2022-02-21 15:35 | PM.PNNEP ---
Progress Note: A&P Assessment and Plan (1) CRF (chronic renal failure): Code(s): N18.9 - Chronic kidney disease, unspecified Status: Acute Assessment and Plan: the patient has chronic kidney disease. She had a creatinine of 1.6 back in 2020 and now it is up to 2.9. We do not have any intervening values. [facility] get some records [facility]. So how much of this is acute and how much of this is just progression of chronic kidney disease is unclear. renal sono normal urines I ordered is pending Complements are okay her creatinine has stayed the same. Perhaps this is just a new baseline for her. the patient should follow-up in the Nephrology office. (2) History of hypertension: Code(s): Z86.79 - Personal history of other diseases of the circulatory system Status: Acute Assessment and Plan: the patient has hypertension. BP 119 to 164 she is on nifed 30 and carv 3.125. pulse 82. will inc carv. (3) Pneumonia: Code(s): J18.9 - Pneumonia, unspecified organism Status: Acute Assessment and Plan: The patient is getting Zithromax and ceftriaxone. She is on some oxygen. cough better. (4) Anemia: Code(s): D64.9 - Anemia, unspecified Status: Acute Assessment and Plan: Hemoglobin is somewhat low. No need for Epogen at this point. (5) Diabetes: Code(s): E11.9 - Type 2 diabetes mellitus without complications Status: Acute Assessment and Plan: She is being followed by the hospitalists for this Subjective Date/time seen: 02/21/22 15:35 Interval history: alert, feels better. cough is better. Eager to go home soon. Exam Narrative: WDWN in NAD skin no rash or subcu nodules head ncat lungs clear cor reg no rub abd BS+ nontender and soft ext no edema or cyanosis. Objective Data Vital Signs Vital Signs: Vital Signs - 24 hr 02/20/22 19:44 02/20/22 20:00 02/20/22 21:07 Temperature 36.8 C Pulse Rate 99 99 97 Respiratory Rate 18 18 18 Blood Pressure 139/72 Pulse Oximetry 91 91 Oxygen Delivery Room Air 02/20/22 21:18 02/21/22 03:45 02/21/22 02:26 Temperature 36.1 C L Pulse Rate 99 80 98 Respiratory Rate 18 20 20 Blood Pressure 153/62 H Pulse Oximetry 93 Oxygen Delivery 02/21/22 02:40 02/21/22 08:37 02/21/22 08:00 Temperature Pulse Rate 96 70 Respiratory Rate 18 Blood Pressure Pulse Oximetry Oxygen Delivery Room Air 02/21/22 10:58 02/21/22 14:00 02/21/22 14:50 Temperature 36.3 C L Pulse Rate 77 86 Respiratory Rate 18 20 Blood Pressure 164/69 H Pulse Oximetry 93 Oxygen Delivery Room Air 02/21/22 15:01 02/21/22 15:01 Temperature Pulse Rate 85 Respiratory Rate 18 Blood Pressure Pulse Oximetry 98 Oxygen Delivery Room Air Intake/Output Intake/Output: Intake & Output 02/18/22 02/19/22 02/20/22 02/21/22 23:59 23:59 23:59 23:59 Intake Total 450 1230 400 Balance 450 1230 400 Meds/Results Medications: Active Medications Generic Name Dose Route Start Last Admin Trade Name Freq PRN Reason Stop Dose Admin Acetaminophen 500 mg 02/20/22 08:07 Acetaminophen 500 Mg Tablet PO Q4-6H PRN Pain Albuterol 2.5 mg 02/19/22 20:00 02/21/22 15:00 Albuterol Sulfate Neb 2.5 Mg/3 Ml Inh INHALATION 2.5 mg Q6HRT SURJIT Administration Atorvastatin Calcium 10 mg 02/20/22 21:00 02/20/22 20:19 Atorvastatin 10 Mg Tablet PO 10 mg HS SURJIT Administration Calcium Carbonate 500 mg 02/20/22 09:00 02/21/22 08:36 Calcium/Vitamin D 500 Mg Tablet PO 500 mg DAILY SURJIT Administration Carvedilol 6.25 mg 02/20/22 21:00 02/21/22 08:37 Carvedilol 6.25 Mg Tablet PO 6.25 mg Q12HR SURJIT Administration Dextrose 12.5 gm 02/19/22 17:49 Dextrose 50% 25 Gm/50 Ml Syringe IV PUSH PRN PRN Hypoglycemia Protocol Famotidine 20 mg 02/20/22 09:00 02/21/22
[2022-02-21 17:29] LABS: Glucose Point of Care 225 mg/dl (65-105)
[2022-02-21] MEDS: ATORVASTATIN 10 MG TABLET PO (20:13)
[2022-02-21] MEDS: PANTOPRAZOLE SODIUM IV 40 MG VIAL IV PUSH (20:13)
[2022-02-21] MEDS: INSULIN GLARGINE (*BKC) 100 UNITS/ML 10 UNITS SUB-Q (20:38)
[2022-02-21 20:41] LABS: Glucose Point of Care 187 mg/dl (65-105)
[2022-02-22] VITALS (11 sets, daily range): BP systolic 157–162; BP diastolic 59–82; PULSE 72–92; RESP 14–20; TEMP 36.7–37.6; O2SAT 93–95
[2022-02-22] MEDS: ALBUTEROL SULFATE NEB 2.5 MG/3 ML INH INHALATION ×4 (04:21→21:28)
[2022-02-22] MEDS: IPRATROPIUM BR 0.02% INH SOLN 0.5 MG/2.5 ML VIAL INHALATION ×4 (04:21→21:27)
[2022-02-22 05:54] LABS: Hematocrit 31.6 % (37.0-47.0); Mean Corpuscular HGB Conc 31.6 g/dl (32-36); Mean Corpuscular Hemoglobin 26.7 pg (26-34); Mean Corpuscular Volume 84.3 fl (80-100); Mean Platelet Volume 10.4 fl (7.4-10.4); Platelet Count Result 273 k/mm3 (150-375); Red Blood Count 3.75 M/mm3 (4.2-5.4); Red Cell Distribution Width 13.2 % (11.5-14.5); White Blood Count 9.4 K/mm3 (4.5-10.0)
[2022-02-22 06:05] LABS: Albumin Level 3.5 g/dL (3.5-5.1); Anion Gap 13 mmol/L (8-16); Blood Urea Nitrogen 66 mg/dL (7-17); Calcium 8.1 mg/dL (8.4-10.2); Carbon Dioxide 26 mmol/L (22-30); Chloride 103 mmol/L (98-107); Estimated CRCL calculation 15 ml/min; Estimated Glomerular Filt Rate 16; Glucose 168 mg/dL (65-110); Phosphorus 4.4 mg/dL (2.5-4.5); Potassium 3.8 mmol/L (3.4-5.0); Sodium 142 mmol/L (137-145)
[2022-02-22] MEDS: carvediloL 6.25 MG TABLET PO ×2 (08:33→20:26)
[2022-02-22] MEDS: FERROUS SULFATE 324 MG TABLET PO (08:33)
[2022-02-22] MEDS: GLIMEPIRIDE 2 MG TABLET 4 MG PO (08:34)
[2022-02-22] MEDS: FAMOTIDINE 20 MG TABLET PO (08:34)
[2022-02-22] MEDS: SENNA/DOCUSATE SODIUM TABLET 1 TAB PO ×2 (08:34→17:52)
[2022-02-22] MEDS: NIFEdipine 30 MG TAB.ER.24 PO (08:34)
[2022-02-22] MEDS: PARoxetine 20 MG TABLET 40 MG PO (08:34)
[2022-02-22 08:41] LABS: Glucose Point of Care 182 mg/dl (65-105)
--- NOTE | 2022-02-22 11:50 | PM.PNNEP ---
Progress Note: A&P Assessment and Plan (1) CRF (chronic renal failure): Code(s): N18.9 - Chronic kidney disease, unspecified Status: Acute Assessment and Plan: the patient has chronic kidney disease. She had a creatinine of 1.6 back in 2020 and now it is up to 2.9. We do not have any intervening values. Will try to get some records from the [facility]. renal sono normal urines I ordered is pending Complements are okay Other labs are pending Her creatinine is stable. Most likely this is chronic kidney disease at a new stable level. the patient should follow-up in the Nephrology office. (2) History of hypertension: Code(s): Z86.79 - Personal history of other diseases of the circulatory system Status: Acute Assessment and Plan: the patient has hypertension. BP 119 to 164 newly on a higher dose of carvedilol. Further adjustments as an outpatient (3) Pneumonia: Code(s): J18.9 - Pneumonia, unspecified organism Status: Acute Assessment and Plan: The patient is getting Zithromax and ceftriaxone. she is off oxygen now. cough Is gone (4) Anemia: Code(s): D64.9 - Anemia, unspecified Status: Acute Assessment and Plan: Hemoglobin is somewhat low. No need for Epogen at this point. (5) Diabetes: Code(s): E11.9 - Type 2 diabetes mellitus without complications Status: Acute Assessment and Plan: She is being followed by the hospitalists for this Subjective Date/time seen: 02/22/22 11:50 Interval history: alert, feels better. No cough or shortness of breath. Eager for discharge. discussed with Dr. Bridges Exam Narrative: WDWN in NAD skin no rash or subcu nodules head ncat lungs clear bilaterally cor reg no rub or gallop abd BS+ nontender and soft ext no edema or cyanosis. Objective Data Vital Signs Vital Signs: Vital Signs - 24 hr 02/21/22 14:00 02/21/22 14:50 02/21/22 15:01 Temperature 36.3 C L Pulse Rate 77 86 85 Respiratory Rate 18 20 18 Blood Pressure 164/69 H Pulse Oximetry 93 Oxygen Delivery 02/21/22 15:01 02/21/22 15:27 02/21/22 20:12 Temperature Pulse Rate 78 Respiratory Rate Blood Pressure Pulse Oximetry 98 Oxygen Delivery Room Air Room Air 02/21/22 20:19 02/21/22 20:00 02/22/22 03:19 Temperature 36.2 C L 36.7 C Pulse Rate 84 84 81 Respiratory Rate 20 20 20 Blood Pressure 152/57 H 157/62 H Pulse Oximetry 95 95 94 Oxygen Delivery Room Air 02/22/22 04:22 02/22/22 08:33 02/22/22 08:45 Temperature Pulse Rate 88 72 87 Respiratory Rate 17 Blood Pressure Pulse Oximetry 94 Oxygen Delivery Room Air 02/22/22 08:45 02/22/22 08:54 02/22/22 08:00 Temperature Pulse Rate 87 84 Respiratory Rate 18 18 Blood Pressure Pulse Oximetry Oxygen Delivery Room Air Intake/Output Intake/Output: Intake & Output 02/19/22 02/20/22 02/21/22 02/22/22 23:59 23:59 23:59 23:59 Intake Total 450 1230 820 120 Balance 450 1230 820 120 Meds/Results Medications: Active Medications Generic Name Dose Route Start Last Admin Trade Name Freq PRN Reason Stop Dose Admin Acetaminophen 500 mg 02/20/22 08:07 Acetaminophen 500 Mg Tablet PO Q4-6H PRN Pain Albuterol 2.5 mg 02/19/22 20:00 02/22/22 08:49 Albuterol Sulfate Neb 2.5 Mg/3 Ml Inh INHALATION 2.5 mg Q6HRT SURJIT Administration Atorvastatin Calcium 10 mg 02/20/22 21:00 02/21/22 20:13 Atorvastatin 10 Mg Tablet PO 10 mg HS SURJIT Administration Calcium Carbonate 500 mg 02/20/22 09:00 02/22/22 08:33 Calcium/Vitamin D 500 Mg Tablet PO 500 mg DAILY SURJIT Administration Carvedilol 6.25 mg 02/20/22 21:00 02/22/22 08:33 Carvedilol 6.25 Mg Tablet PO 6.25 mg Q12HR SURJIT Administration Dextrose 12.5 gm 02/19/22 17:49 Dextrose 50% 25 Gm/50 Ml Syringe IV PUSH PRN PRN Hypoglycemia
[2022-02-22 12:04] LABS: Glucose Point of Care 225 mg/dl (65-105)
[2022-02-22] MEDS: INSULIN ASPART (*BKC) 100 UNITS/ML SUB-Q (12:13)
--- NOTE | 2022-02-22 12:24 | PM.IMPN ---
Progress Note: A&P Assessment and Plan (1) Hypoxia: Code(s): R09.02 - Hypoxemia Status: Acute Assessment and Plan: -the patient is currently on 3 L. She had a chest x-ray that shows mild atelectasis at the left lung base. -patient has thrombocytosis. Sputum and blood cultures are pending. -wean off of oxygen as necessary. -the patient was empirically started on community-acquired pneumonia antibiotic stewardship due to her hypoxia. -unable to perform CTA due to acute on chronic renal failure. 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 brought to the emergency department with shortness of bread patient is found to have pneumonia and being treated with ceftriaxone and azithromycin for community-acquired pneumonia, Patient clinical symptoms are improving, will continue present management repeat chest x-ray on Thursday possibly discharge, will continue to monitor have PT OT evaluate the, also has a history of chronic kidney disease seen by Nephrology patient's serum creatinine is trending down to 2.8 from high of 3.1 I discussed with sponge buffer this is patient's baseline and no further recommendation from sponge buffer, patient is a poor historian. (2) Pneumonia: Code(s): J18.9 - Pneumonia, unspecified organism Status: Acute Assessment and Plan: The patient was placed on azithromycin and Rocephin -sputum and blood cultures are pending -unable to do CTA due to her renal failure - The patient has mild leukocytosis. -continue with nebulizer treatments. (3) EVANGELISTA (acute kidney injury): Code(s): N17.9 - Acute kidney failure, unspecified Status: Acute Assessment and Plan: -hold nephrotoxic medication. -the patient could be dehydrated. -gently hydrate. -renal ultrasound has been ordered. -nephrology has been consulted. (4) PVD (peripheral vascular disease): Code(s): I73.9 - Peripheral vascular disease, unspecified Status: Acute Assessment and Plan: -continue with current home treatment. (5) Hyperlipidemia: Code(s): E78.5 - Hyperlipidemia, unspecified Status: Acute Assessment and Plan: -patient's home medications have not been verified. (6) Diabetic acidosis, type II: Code(s): E11.10 - Type 2 diabetes mellitus with ketoacidosis without coma Status: Acute Assessment and Plan: -Accu-Cheks AC and HS -sliding scale insulin. -A1c if not checked in last 3 months. (7) Depression: Code(s): F32.A - Depression, unspecified Status: Acute Assessment and Plan: -continue with patient's home medications her medications have not been reconciled. (8) Chronic GERD: Code(s): K21.9 - Gastro-esophageal reflux disease without esophagitis Status: Acute Assessment and Plan: -iv protonix (9) Anxiety: Code(s): F41.9 - Anxiety disorder, unspecified Status: Acute Assessment and Plan: -continue with home medications. (10) Anemia: Code(s): D64.9 - Anemia, unspecified Status: Acute Assessment and Plan: -could be related to her chronic renal failure. -the patient is at her baseline. -continue to monitor. Patient has no active bleeding at this time. 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
[2022-02-22 17:22] LABS: Glucose Point of Care 199 mg/dl (65-105)
[2022-02-22] MEDS: ATORVASTATIN 10 MG TABLET PO (20:27)
[2022-02-22] MEDS: PANTOPRAZOLE SODIUM IV 40 MG VIAL IV PUSH (20:27)
[2022-02-22] MEDS: INSULIN GLARGINE (*BKC) 100 UNITS/ML 10 UNITS SUB-Q (20:27)
[2022-02-22 22:00] LABS: Glucose Point of Care 118 mg/dl (65-105)
[2022-02-23] VITALS (14 sets, daily range): BP systolic 132–155; BP diastolic 70–75; PULSE 74–90; RESP 14–20; TEMP 36.5–37.1; O2SAT 92–94
[2022-02-23] MEDS: IPRATROPIUM BR 0.02% INH SOLN 0.5 MG/2.5 ML VIAL INHALATION ×4 (02:54→21:15)
[2022-02-23] MEDS: ALBUTEROL SULFATE NEB 2.5 MG/3 ML INH INHALATION ×4 (02:54→21:15)
[2022-02-23 06:48] LABS: Hematocrit 34.6 % (37.0-47.0); Hemoglobin 10.7 g/dL (12.0-15.0); Mean Corpuscular HGB Conc 30.9 g/dl (32-36); Mean Corpuscular Hemoglobin 25.7 pg (26-34); Mean Corpuscular Volume 83.2 fl (80-100); Mean Platelet Volume 10.1 fl (7.4-10.4); Platelet Count Result 297 k/mm3 (150-375); Red Blood Count 4.16 M/mm3 (4.2-5.4); Red Cell Distribution Width 13.2 % (11.5-14.5); White Blood Count 9.1 K/mm3 (4.5-10.0)
[2022-02-23 06:56] LABS: Albumin Level 3.5 g/dL (3.5-5.1); Anion Gap 16 mmol/L (8-16); Blood Urea Nitrogen 58 mg/dL (7-17); Calcium 8.3 mg/dL (8.4-10.2); Carbon Dioxide 24 mmol/L (22-30); Chloride 104 mmol/L (98-107); Estimated CRCL calculation 20 ml/min; Estimated Glomerular Filt Rate 21; Glucose 165 mg/dL (65-110); Phosphorus 4.7 mg/dL (2.5-4.5); Potassium 3.7 mmol/L (3.4-5.0); Sodium 144 mmol/L (137-145)
[2022-02-23 08:33] LABS: Glucose Point of Care 167 mg/dl (65-105)
[2022-02-23] MEDS: SENNA/DOCUSATE SODIUM TABLET 1 TAB PO ×2 (09:03→17:41)
[2022-02-23] MEDS: FERROUS SULFATE 324 MG TABLET PO (09:03)
[2022-02-23] MEDS: NIFEdipine 30 MG TAB.ER.24 PO (09:04)
[2022-02-23] MEDS: FAMOTIDINE 20 MG TABLET PO (09:04)
[2022-02-23] MEDS: carvediloL 6.25 MG TABLET PO (09:05)
[2022-02-23] MEDS: PARoxetine 20 MG TABLET 40 MG PO (09:06)
[2022-02-23] MEDS: PANTOPRAZOLE SODIUM IV 40 MG VIAL IV PUSH ×2 (09:07→20:24)
[2022-02-23] MEDS: GLIMEPIRIDE 2 MG TABLET 4 MG PO (09:07)
--- NOTE | 2022-02-23 10:20 | PM.PNNEP ---
Progress Note: A&P Assessment and Plan (1) CRF (chronic renal failure): Code(s): N18.9 - Chronic kidney disease, unspecified Status: Acute Assessment and Plan: the patient has chronic kidney disease. She had a creatinine of 1.6 back in 2020 and now it is up to 2.9. We do not have any intervening values. Will try to get some records from the longterm. renal sono normal urines I ordered is pending Complements are okay Other labs are pending Her creatinine is stable. just when I thought this might be new stable creatinine for her, today her creatinine fell to 2.2. At this point controlling her blood pressure, sugars, and watching her diet her the biggest thing she can do for her kidneys. the patient should follow-up in the Nephrology office. (2) History of hypertension: Code(s): Z86.79 - Personal history of other diseases of the circulatory system Status: Acute Assessment and Plan: the patient has hypertension. BP 119 to 164 She is on carvedilol 6.25, nifedipine 30. Will increase the carvedilol to 12.5. Eventually she will need an Efe inhibitor if her potassium is okay once she is at her new baseline. Further adjustments as an outpatient (3) Pneumonia: Code(s): J18.9 - Pneumonia, unspecified organism Status: Acute Assessment and Plan: The patient is getting Zithromax and ceftriaxone. she is off oxygen now. cough is gone (4) Anemia: Code(s): D64.9 - Anemia, unspecified Status: Acute Assessment and Plan: Hemoglobin is somewhat low. No need for Epogen at this point. (5) Diabetes: Code(s): E11.9 - Type 2 diabetes mellitus without complications Status: Acute Assessment and Plan: She is being followed by the hospitalists for this Subjective Date/time seen: 02/23/22 10:20 Interval history: patient is sleepy. Her breakfast is here and so she is getting set up for this. patient looks comfortable Exam Narrative: WDWN in NAD skin no rash or subcu nodules head ncat lungs clear bilaterally cor reg no rub or gallop abd BS+ nontender and soft ext no edema Objective Data Vital Signs Vital Signs: Vital Signs - 24 hr 02/22/22 14:50 02/22/22 15:47 02/22/22 20:26 Temperature 37.6 C Pulse Rate 88 81 80 Respiratory Rate 18 16 Blood Pressure 162/82 H Pulse Oximetry 93 02/22/22 21:30 02/22/22 21:33 02/23/22 03:26 Temperature 36.7 C Pulse Rate 80 92 87 Respiratory Rate 14 18 18 Blood Pressure 157/59 H Pulse Oximetry 95 02/22/22 21:44 02/23/22 03:28 02/23/22 05:20 Temperature 37.0 C Pulse Rate 82 83 89 Respiratory Rate 18 20 17 Blood Pressure 155/75 H Pulse Oximetry 94 02/23/22 09:05 02/23/22 08:30 02/23/22 08:40 Temperature Pulse Rate 90 79 80 Respiratory Rate 18 20 Blood Pressure Pulse Oximetry Intake/Output Intake/Output: Intake & Output 02/20/22 02/21/22 02/22/22 02/23/22 23:59 23:59 23:59 22:59 Intake Total 1230 820 400 480 Balance 1230 820 400 480 Meds/Results Medications: Active Medications Generic Name Dose Route Start Last Admin Trade Name Freq PRN Reason Stop Dose Admin Acetaminophen 500 mg 02/20/22 08:07 Acetaminophen 500 Mg Tablet PO Q4-6H PRN Pain Albuterol 2.5 mg 02/19/22 20:00 02/23/22 08:41 Albuterol Sulfate Neb 2.5 Mg/3 Ml Inh INHALATION 2.5 mg Q6HRT SURJIT Administration Atorvastatin Calcium 10 mg 02/20/22 21:00 02/22/22 20:27 Atorvastatin 10 Mg Tablet PO 10 mg HS SURJIT Administration Calcium Carbonate 500 mg 02/20/22 09:00 02/23/22 09:03 Calcium/Vitamin D 500 Mg Tablet PO 500 mg DAILY SURJIT Administration Carvedilol 6.25 mg 02/20/22 21:00 02/23/22 09:05 Carvedilol 6.25 Mg Tablet PO 6.25 mg Q12HR SURJIT Administration Dextrose 12.5 gm 02/19/22 17:49 Dextrose 50% 25 Gm/50 Ml Syringe IV PUSH PRN PRN Hy
[2022-02-23 12:27] LABS: Glucose Point of Care 235 mg/dl (65-105)
[2022-02-23] MEDS: INSULIN ASPART (*BKC) 100 UNITS/ML SUB-Q ×2 (12:33→17:40)
--- NOTE | 2022-02-23 13:48 | PM.IMPN ---
Progress Note: A&P Assessment and Plan (1) Hypoxia: Code(s): R09.02 - Hypoxemia Status: Acute Assessment and Plan: -the patient is currently on R/a. She had a chest x-ray that shows mild atelectasis vs pneumonia at the left lung base. Sputum not obtained and blood cultures are negative as of 02/23 -wean off of oxygen as necessary. Continue Ceftriaxone and Azithromycin day 4 (2) Pneumonia: Code(s): J18.9 - Pneumonia, unspecified organism Status: Acute Assessment and Plan: The patient was placed on azithromycin and Rocephin (3) EVANGELISTA (acute kidney injury): Code(s): N17.9 - Acute kidney failure, unspecified Status: Acute Assessment and Plan: -hold nephrotoxic medication. -gently hydrate. -renal ultrasound wnl -nephrology has been consulted. 02/23 creatinine 2.2 (4) Diabetic acidosis, type II: Code(s): E11.10 - Type 2 diabetes mellitus with ketoacidosis without coma Status: Acute Assessment and Plan: -Accu-Cheks AC and HS with SSI TID (5) Depression: Code(s): F32.A - Depression, unspecified Status: Acute Assessment and Plan: -continue with patient's home medications her medications have not been reconciled. (6) Chronic GERD: Code(s): K21.9 - Gastro-esophageal reflux disease without esophagitis Status: Acute Assessment and Plan: -iv protonix (7) Anxiety: Code(s): F41.9 - Anxiety disorder, unspecified Status: Acute Assessment and Plan: -continue with home medications. (8) Anemia: Code(s): D64.9 - Anemia, unspecified Status: Acute Assessment and Plan: -could be related to her chronic renal failure. -the patient is at her baseline. -continue to monitor. Patient has no active bleeding at this time. (9) History of hypertension: Code(s): Z86.79 - Personal history of other diseases of the circulatory system Status: Acute Assessment and Plan: Continue antihypertensives 02/23 Carvedilol increased to 12.5mg bid Subjective Date/time seen: 02/23/22 13:48 Review of Systems Review of Systems: Follow-up pneumonia and respiratory failure Fair appetite. Mild left lower rib pain. More positional. Not related to respiration. No chest pain. No abdominal pain. No GI or complaints. No abnormal bleeding. No shortness of breath at rest. All systems reviewed & are unremarkable except as noted in HPI and below Exam Narrative: chronically ill-appearing elderly female in no acute distress. Mucosa moist. Sclerae nonicteric. Neck no JVD chest few left basilar fine crackles heart normal S1 and S2 regular rate no audible murmurs abdomen protuberant soft nontender no mass no organomegaly bowel sounds positive extremities no edema cyanosis or clubbing musculoskeletal no gross deformity to visual inspection neurologic cranial nerves symmetric to visual inspection Objective Data Vital Signs Vital Signs: Vital Signs - 24 hr 02/22/22 14:50 02/22/22 15:47 02/22/22 20:26 Temperature 99.6 F Pulse Rate 88 81 80 Respiratory Rate 18 16 Blood Pressure 162/82 H Pulse Oximetry 93 Oxygen Delivery 02/22/22 21:30 02/22/22 21:33 02/23/22 03:26 Temperature 98.1 F Pulse Rate 80 92 87 Respiratory Rate 14 18 18 Blood Pressure 157/59 H Pulse Oximetry 95 Oxygen Delivery 02/22/22 21:44 02/23/22 03:28 02/23/22 05:20 Temperature 98.6 F Pulse Rate 82 83 89 Respiratory Rate 18 20 17 Blood Pressure 155/75 H Pulse Oximetry 94 Oxygen Delivery 02/23/22 09:05 02/23/22 08:30 02/23/22 08:40 Temperature Pulse Rate 90 79 80 Respiratory Rate 18 20 Blood Pressure Pulse Oximetry Oxygen Delivery 02/23/22 08:00 02/23/22 13:25 02/23/22 13:34 Temperature Pulse Rate 82 80 Respiratory Rate 18 20 Blood Pressure Pulse Oximetry Oxygen Delivery Room Air Intake/Output Intake/O
[2022-02-23 15:23] LABS: Kappa\\Lambda Light Chains 1.62 (0.26-1.65); Lambda Light Chain 59.9 mg/L (5.7-26.3)
[2022-02-23 17:24] LABS: Glucose Point of Care 209 mg/dl (65-105)
[2022-02-23] MEDS: carvediloL 12.5 MG TABLET PO (20:24)
[2022-02-23] MEDS: ATORVASTATIN 10 MG TABLET PO (20:24)
[2022-02-23] MEDS: INSULIN GLARGINE (*BKC) 100 UNITS/ML 10 UNITS SUB-Q (20:26)
[2022-02-23 20:36] LABS: Glucose Point of Care 115 mg/dl (65-105)
[2022-02-24] VITALS (14 sets, daily range): BP systolic 124–147; BP diastolic 56–98; PULSE 72–86; RESP 16–20; TEMP 36.5–36.7; O2SAT 91–96
[2022-02-24] MEDS: ALBUTEROL SULFATE NEB 2.5 MG/3 ML INH INHALATION ×4 (02:25→20:58)
[2022-02-24 05:22] LABS: Hematocrit 31.2 % (37.0-47.0); Hemoglobin 9.8 g/dL (12.0-15.0); Mean Corpuscular HGB Conc 31.4 g/dl (32-36); Mean Corpuscular Hemoglobin 26.2 pg (26-34); Mean Corpuscular Volume 83.4 fl (80-100); Mean Platelet Volume 9.4 fl (7.4-10.4); Platelet Count Result 285 k/mm3 (150-375); Red Blood Count 3.74 M/mm3 (4.2-5.4); Red Cell Distribution Width 13.2 % (11.5-14.5); White Blood Count 10.8 K/mm3 (4.5-10.0)
[2022-02-24] MEDS: IPRATROPIUM BR 0.02% INH SOLN 0.5 MG/2.5 ML VIAL INHALATION ×4 (05:25→20:58)
[2022-02-24 05:31] LABS: Albumin Level 3.3 g/dL (3.5-5.1); Anion Gap 16 mmol/L (8-16); Blood Urea Nitrogen 54 mg/dL (7-17); Calcium 8.3 mg/dL (8.4-10.2); Carbon Dioxide 26 mmol/L (22-30); Chloride 104 mmol/L (98-107); Estimated CRCL calculation 17 ml/min; Estimated Glomerular Filt Rate 19; Glucose 125 mg/dL (65-110); Phosphorus 4.9 mg/dL (2.5-4.5); Potassium 3.6 mmol/L (3.4-5.0); Sodium 146 mmol/L (137-145)
[2022-02-24 08:45] LABS: Glucose Point of Care 126 mg/dl (65-105)
[2022-02-24] MEDS: FERROUS SULFATE 324 MG TABLET PO (08:46)
[2022-02-24] MEDS: FAMOTIDINE 20 MG TABLET PO (08:48)
[2022-02-24] MEDS: carvediloL 12.5 MG TABLET PO ×2 (08:48→20:25)
[2022-02-24] MEDS: GLIMEPIRIDE 2 MG TABLET 4 MG PO (08:48)
[2022-02-24] MEDS: SENNA/DOCUSATE SODIUM TABLET 1 TAB PO ×2 (08:48→17:08)
[2022-02-24] MEDS: PANTOPRAZOLE SODIUM IV 40 MG VIAL IV PUSH ×2 (08:49→20:25)
[2022-02-24] MEDS: NIFEdipine 30 MG TAB.ER.24 PO (08:49)
[2022-02-24] MEDS: PARoxetine 20 MG TABLET 40 MG PO (08:49)
[2022-02-24 12:13] LABS: Glucose Point of Care 228 mg/dl (65-105)
[2022-02-24] MEDS: INSULIN ASPART (*BKC) 100 UNITS/ML SUB-Q ×2 (12:31→17:09)
[2022-02-24] MEDS: DEXTROSE 5%/0.45% SOD CHL 500 ML 50 ML IV CONT (13:03)
--- NOTE | 2022-02-24 13:27 | PM.PNNEP ---
Progress Note: A&P Assessment and Plan (1) CRF (chronic renal failure): Code(s): N18.9 - Chronic kidney disease, unspecified Status: Chronic Assessment and Plan: acute on chronic CKD versus progression of CKD(?) suspect the later (but no labs in the last year) probably CKD stage 4 known chronic kidney disease with a creatinine of 1.6mg/dl about a year ago on admission, up to 2.9mg/dl with peak creatinine of 3.1mg/dl down to 2.5mg/dl today evaluation to date: renal ultrasound normal urine electrolytes pending complements okay UA with some protein and RBCs other labs pending at this point, she should focus on controlling her blood pressure, sugars/DM, and watching her diet to ensure stability in renal function she should follow-up with Nephrology for ongoing CKD management on discharge (2) Pneumonia: Code(s): J18.9 - Pneumonia, unspecified organism Status: Acute Assessment and Plan: clinical improvement noted on antibiotics off supplemental oxygen continue supportive therapy (3) Hypertension: Code(s): I10 - Essential (primary) hypertension Status: Chronic Assessment and Plan: reasonable control on carvedilol 12.5 bid and nifedipine 30 qday; can titrate carvedilol if needed would benefit from ADOLFO-I/ARB if her potassium is okay once renal function stabilizes these further adjustments can be done as an outpatient (4) Anemia: Code(s): D64.9 - Anemia, unspecified Status: Acute Assessment and Plan: partly related to CKD and acute illness follow trend of H/H no need for HALEY at this time (5) Diabetes: Code(s): E11.9 - Type 2 diabetes mellitus without complications Status: Chronic Assessment and Plan: follow accuchecks on oral hypoglycemics, SSI, and Lantus Will continue to follow. Subjective Date/time seen: 02/24/22 13:27 Chart reviewed -- assuming care from Dr. Steiner; no acute issues or complaints voiced at the time of my visit; respiratory status seems stable if not better since admission; creatinine appears relatively stable with reasonable urine output; no apparent distress noted. Exam Narrative: General: WD/WN elderly female in NAD Heart: normal S1 and S2; no rub Lungs: clear to auscultation Abdomen: soft, nontender, nondistended, positive bowel sounds Extremities: no cyanosis or clubbing; no edema Skin: warm and dry Objective Data Vital Signs Vital Signs: Vital Signs Temp Pulse Resp BP Pulse Ox O2 Del Method 02/24/22 09:22 72 18 02/24/22 09:16 75 96 Room Air 02/24/22 09:16 75 18 02/24/22 08:48 74 02/24/22 06:10 36.7 C 86 16 147/73 H 91 02/23/22 21:18 75 18 02/23/22 21:27 74 18 02/24/22 02:36 78 20 02/24/22 02:26 78 94 Room Air 02/24/22 02:26 78 20 02/23/22 20:00 88 14 94 Room Air 02/23/22 20:24 88 02/23/22 20:08 37.1 C 78 14 142/71 H 94 Intake/Output Intake/Output: Intake & Output 02/22/22 02/23/22 02/23/22 02/24/22 00:59 00:59 23:59 23:59 Intake Total 1150 Balance 1150 Meds/Results Medications: Active Medications Generic Name Dose Route Start Last Admin Trade Name Erikq PRN Reason Stop Dose Admin Acetaminophen 500 mg 02/20/22 08:07 Acetaminophen 500 Mg Tablet PO Q4-6H PRN Pain Albuterol 2.5 mg 02/19/22 20:00 02/24/22 15:04 Albuterol Sulfate Neb 2.5 Mg/3 Ml Inh INHALATION 2.5 mg Q6HRT SURJIT Administration Atorvastatin Calcium 10 mg 02/20/22 21:00 02/23/22 20:24 Atorvastatin 10 Mg Tablet PO 10 mg HS SURJIT Administration Calcium Carbonate 500 mg 02/20/22 09:00 02/24/22 08:46 Calcium/Vitamin D 500 Mg Tablet PO 500 mg DAILY SURJIT Administration Carvedilol 12.5 mg 02/23/22 21:00 02/24/22 08:48 Carvedilol 12.5 Mg Tablet PO 12.5 mg Q12HR SURJIT Administration Dextrose 12.5 gm
--- NOTE | 2022-02-24 13:27 | P.PNNP_ITS ---
Progress Note: A&P Assessment and Plan (1) CRF (chronic renal failure): Code(s): N18.9 - Chronic kidney disease, unspecified Status: Chronic Assessment and Plan: * acute on chronic CKD versus progression of CKD(?) * suspect the later (but no labs in the last year) * probably CKD stage 4 * known chronic kidney disease with a creatinine of 1.6mg/dl about a year ago * on admission, up to 2.9mg/dl with peak creatinine of 3.1mg/dl * down to 2.5mg/dl today * evaluation to date: * renal ultrasound normal * urine electrolytes pending * complements okay * UA with some protein and RBCs * other labs pending * at this point, she should focus on controlling her blood pressure, sugars/DM, and watching her diet to ensure stability in renal function * she should follow-up with Nephrology for ongoing CKD management on discharge (2) Pneumonia: Code(s): J18.9 - Pneumonia, unspecified organism Status: Acute Assessment and Plan: * clinical improvement noted * on antibiotics * off supplemental oxygen * continue supportive therapy (3) Hypertension: Code(s): I10 - Essential (primary) hypertension Status: Chronic Assessment and Plan: * reasonable control * on carvedilol 12.5 bid and nifedipine 30 qday; can titrate carvedilol if needed * would benefit from ADOLFO-I/ARB if her potassium is okay once renal function stabilizes * these further adjustments can be done as an outpatient (4) Anemia: Code(s): D64.9 - Anemia, unspecified Status: Acute Assessment and Plan: * partly related to CKD and acute illness * follow trend of H/H * no need for HALEY at this time (5) Diabetes: Code(s): E11.9 - Type 2 diabetes mellitus without complications Status: Chronic Assessment and Plan: * follow accuchecks * on oral hypoglycemics, SSI, and Lantus Will continue to follow. Subjective Date/time seen: 02/24/22 13:27 Chart reviewed -- assuming care from Dr. Steiner; no acute issues or complaints voiced at the time of my visit; respiratory status seems stable if not better since admission; creatinine appears relatively stable with reasonable urine output; no apparent distress noted. Exam Narrative: General: WD/WN elderly female in NAD Heart: normal S1 and S2; no rub Lungs: clear to auscultation Abdomen: soft, nontender, nondistended, positive bowel sounds Extremities: no cyanosis or clubbing; no edema Skin: warm and dry Objective Data Vital Signs Vital Signs: Vital Signs Temp Pulse Resp BP Pulse Ox O2 Del Method 02/24/22 09:22 72 18 02/24/22 09:16 75 96 Room Air 02/24/22 09:16 75 18 02/24/22 08:48 74 02/24/22 06:10 36.7 C 86 16 147/73 H 91 02/23/22 21:18 75 18 02/23/22 21:27 74 18 02/24/22 02:36 78 20 02/24/22 02:26 78 94 Room Air 02/24/22 02:26 78 20 02/23/22 20:00 88 14 94 Room Air 02/23/22 20:24 88 02/23/22 20:08 37.1 C 78 14 142/71 H 94 Intake/Output Intake/Output: Intake & Output 02/22/22 02/23/22 02/23/22 02/24/22 00:59 00:59 23:59 23:59 Intake Total 1150 Balance 1150 Meds/R
--- NOTE | 2022-02-24 14:58 | PM.IMPN ---
Progress Note: A&P Assessment and Plan (1) Hypoxia: Code(s): R09.02 - Hypoxemia Status: Acute Assessment and Plan: -the patient is currently on R/a. She had a chest x-ray that shows mild atelectasis vs pneumonia at the left lung base. Sputum not obtained and blood cultures are negative as of 02/23 -wean off of oxygen as necessary. Continue Ceftriaxone and Azithromycin day 5 (2) Pneumonia: Code(s): J18.9 - Pneumonia, unspecified organism Status: Acute Assessment and Plan: on azithromycin and Rocephin (3) EVANGELISTA (acute kidney injury): Code(s): N17.9 - Acute kidney failure, unspecified Status: Acute Assessment and Plan: -hold nephrotoxic medication. -gently hydrate. -renal ultrasound wnl -nephrology has been consulted. (4) Diabetic acidosis, type II: Code(s): E11.10 - Type 2 diabetes mellitus with ketoacidosis without coma Status: Acute Assessment and Plan: -Accu-Cheks AC and HS with SSI TID (5) Depression: Code(s): F32.A - Depression, unspecified Status: Acute Assessment and Plan: -continue with patient's home medications (6) Chronic GERD: Code(s): K21.9 - Gastro-esophageal reflux disease without esophagitis Status: Acute Assessment and Plan: -iv protonix (7) Anxiety: Code(s): F41.9 - Anxiety disorder, unspecified Status: Acute Assessment and Plan: -continue with home medications. (8) Anemia: Code(s): D64.9 - Anemia, unspecified Status: Acute Assessment and Plan: -could be related to her chronic renal failure. -the patient is at her baseline. -continue to monitor. Patient has no active bleeding at this time. (9) History of hypertension: Code(s): Z86.79 - Personal history of other diseases of the circulatory system Status: Acute Assessment and Plan: Continue antihypertensives Plan mild hypernatremia: will start the patient on D5 half NS. monitor BMP Subjective Date/time seen: 02/24/22 14:58 no complaint at this time Review of Systems Review of Systems: All systems reviewed & are unremarkable except as noted in HPI and below Exam Narrative: chronically ill-appearing elderly female in no acute distress. Mucosa moist. Sclerae nonicteric. Neck no JVD chest few left basilar fine crackles heart normal S1 and S2 regular rate no audible murmurs abdomen protuberant soft nontender no mass no organomegaly bowel sounds positive extremities no edema cyanosis or clubbing musculoskeletal no gross deformity to visual inspection neurologic cranial nerves symmetric to visual inspection Objective Data Vital Signs Vital Signs: Vital Signs - 24 hr 02/23/22 20:08 02/23/22 20:24 02/23/22 20:00 Temperature 98.8 F Pulse Rate 78 88 88 Respiratory Rate 14 14 Blood Pressure 142/71 H Pulse Oximetry 94 94 Oxygen Delivery Room Air 02/24/22 02:26 02/24/22 02:26 02/24/22 02:36 Temperature Pulse Rate 78 78 78 Respiratory Rate 20 20 Blood Pressure Pulse Oximetry 94 Oxygen Delivery Room Air 02/23/22 21:27 02/23/22 21:18 02/24/22 06:10 Temperature 98.1 F Pulse Rate 74 75 86 Respiratory Rate 18 18 16 Blood Pressure 147/73 H Pulse Oximetry 91 Oxygen Delivery 02/24/22 08:48 02/24/22 09:16 02/24/22 09:16 Temperature Pulse Rate 74 75 75 Respiratory Rate 18 Blood Pressure Pulse Oximetry 96 Oxygen Delivery Room Air 02/24/22 09:22 02/24/22 08:00 Temperature Pulse Rate 72 Respiratory Rate 18 Blood Pressure Pulse Oximetry Oxygen Delivery Room Air Intake/Output Intake/Output: Intake & Output 02/22/22 02/23/22 02/23/22 02/24/22 00:59 00:59 23:59 23:59 Intake Total 850 / 850 Balance 850 / 850 Meds/Results Medications: Active Medications Generic Name Dose Route Start Last Admin Trade Name Freq PRN Reason Stop Dose Admin Acetam
[2022-02-24 16:47] LABS: Glucose Point of Care 206 mg/dl (65-105)
[2022-02-24 17:08] LABS: Complement Total CH50 >60 U/mL (31-60)
[2022-02-24] MEDS: ATORVASTATIN 10 MG TABLET PO (20:25)
[2022-02-24 21:59] LABS: Glucose Point of Care 169 mg/dl (65-105)
[2022-02-25] VITALS (9 sets, daily range): BP systolic 126; BP diastolic 76; PULSE 72–90; RESP 18; TEMP 36.7; O2SAT 93–95
[2022-02-25] MEDS: ALBUTEROL SULFATE NEB 2.5 MG/3 ML INH INHALATION ×3 (02:46→15:23)
[2022-02-25] MEDS: IPRATROPIUM BR 0.02% INH SOLN 0.5 MG/2.5 ML VIAL INHALATION ×3 (02:46→15:22)
[2022-02-25 05:41] LABS: Hematocrit 29.5 % (37.0-47.0); Hemoglobin 9.2 g/dL (12.0-15.0); Mean Corpuscular HGB Conc 31.2 g/dl (32-36); Mean Corpuscular Hemoglobin 26.6 pg (26-34); Mean Corpuscular Volume 85.3 fl (80-100); Mean Platelet Volume 9.7 fl (7.4-10.4); Platelet Count Result 255 k/mm3 (150-375); Red Blood Count 3.46 M/mm3 (4.2-5.4); Red Cell Distribution Width 13.2 % (11.5-14.5); White Blood Count 9.7 K/mm3 (4.5-10.0)
[2022-02-25 06:03] LABS: Albumin Level 3.3 g/dL (3.5-5.1); Anion Gap 10 mmol/L (8-16); Blood Urea Nitrogen 51 mg/dL (7-17); Calcium 8.1 mg/dL (8.4-10.2); Carbon Dioxide 25 mmol/L (22-30); Chloride 105 mmol/L (98-107); Estimated CRCL calculation 17 ml/min; Estimated Glomerular Filt Rate 19; Glucose 185 mg/dL (65-110); Phosphorus 4.7 mg/dL (2.5-4.5); Potassium 4.1 mmol/L (3.4-5.0); Sodium 140 mmol/L (137-145)
[2022-02-25 08:28] LABS: Glucose Point of Care 171 mg/dl (65-105)
[2022-02-25] MEDS: FERROUS SULFATE 324 MG TABLET PO (09:06)
[2022-02-25] MEDS: carvediloL 12.5 MG TABLET PO (09:06)
[2022-02-25] MEDS: GLIMEPIRIDE 2 MG TABLET 4 MG PO (09:07)
[2022-02-25] MEDS: SENNA/DOCUSATE SODIUM TABLET 1 TAB PO (09:07)
[2022-02-25] MEDS: NIFEdipine 30 MG TAB.ER.24 PO (09:08)
[2022-02-25] MEDS: PANTOPRAZOLE SODIUM IV 40 MG VIAL IV PUSH (09:08)
[2022-02-25] MEDS: PARoxetine 20 MG TABLET 40 MG PO (09:08)
--- NOTE | 2022-02-25 10:16 | P.PNNP_ITS ---
Progress Note: A&P Assessment and Plan (1) CRF (chronic renal failure): Code(s): N18.9 - Chronic kidney disease, unspecified Status: Chronic Assessment and Plan: * acute on chronic CKD versus progression of CKD(?) * suspect the later (but no labs in the last year) * probably CKD stage 4 * known chronic kidney disease with a creatinine of 1.6mg/dl about a year ago * on admission, up to 2.9mg/dl with peak creatinine of 3.1mg/dl * down to 2.5mg/dl * evaluation to date: * renal ultrasound normal * urine electrolytes pending * complements okay * UA with some protein and RBCs * other labs pending * at this point, she should focus on controlling her blood pressure, sugars/DM, and watching her diet to ensure stability in renal function * she should follow-up with Nephrology for ongoing CKD management on discharge (2) Pneumonia: Code(s): J18.9 - Pneumonia, unspecified organism Status: Acute Assessment and Plan: * clinical improvement noted * on antibiotics * off supplemental oxygen * continue supportive therapy (3) Hypertension: Code(s): I10 - Essential (primary) hypertension Status: Chronic Assessment and Plan: * reasonable control at this time * on carvedilol 12.5 bid and nifedipine 30 qday * would benefit from ADOLFO-I/ARB if her potassium is okay once renal function stabilizes * these further adjustments can be done as an outpatient (4) Anemia: Code(s): D64.9 - Anemia, unspecified Status: Acute Assessment and Plan: * partly related to CKD and acute illness * follow trend of H/H * no need for HALEY at this time (5) Diabetes: Code(s): E11.9 - Type 2 diabetes mellitus without complications Status: Chronic Assessment and Plan: * follow accuchecks * on oral hypoglycemics, SSI, and Lantus Will continue to follow. Subjective Date/time seen: 02/25/22 10:16 No new issues or problems to report at this time; no events overnight or earlier this morning; feels reasonably well; no apparent distress noted. Exam Narrative: General: WD/WN elderly female in NAD Heart: normal S1 and S2; no rub Lungs: clear to auscultation Abdomen: soft, nontender, nondistended, positive bowel sounds Extremities: no cyanosis or clubbing; no edema Skin: warm and intact Objective Data Vital Signs Vital Signs: Vital Signs Temp Pulse Resp BP Pulse Ox O2 Del Method 02/25/22 08:00 Room Air 02/25/22 09:29 76 18 02/25/22 09:18 80 18 02/25/22 09:06 80 02/25/22 07:51 93 Room Air 02/25/22 05:05 36.7 C 77 18 126/76 95 02/25/22 02:49 80 18 02/25/22 02:40 90 18 02/24/22 22:00 36.7 C 77 18 124/98 H 92 02/24/22 20:00 76 18 92 Room Air 02/24/22 21:02 76 18 02/24/22 20:55 81 18 02/24/22 20:55 81 92 Room Air 02/24/22 20:25 86 02/24/22 15:30 36.5 C 73 16 135/56 L 96 02/24/22 15:08 78 18 02/24/22 15:00 82 18 Intake/Output Intake/Output: Intake & Output 02/23/22 02/23/22 02/24/22 02/25/22 00:59 23:59 23:59 23:59 Intake Total 1889 Balance 1889
--- NOTE | 2022-02-25 10:16 | PM.PNNEP ---
Progress Note: A&P Assessment and Plan (1) CRF (chronic renal failure): Code(s): N18.9 - Chronic kidney disease, unspecified Status: Chronic Assessment and Plan: acute on chronic CKD versus progression of CKD(?) suspect the later (but no labs in the last year) probably CKD stage 4 known chronic kidney disease with a creatinine of 1.6mg/dl about a year ago on admission, up to 2.9mg/dl with peak creatinine of 3.1mg/dl down to 2.5mg/dl evaluation to date: renal ultrasound normal urine electrolytes pending complements okay UA with some protein and RBCs other labs pending at this point, she should focus on controlling her blood pressure, sugars/DM, and watching her diet to ensure stability in renal function she should follow-up with Nephrology for ongoing CKD management on discharge (2) Pneumonia: Code(s): J18.9 - Pneumonia, unspecified organism Status: Acute Assessment and Plan: clinical improvement noted on antibiotics off supplemental oxygen continue supportive therapy (3) Hypertension: Code(s): I10 - Essential (primary) hypertension Status: Chronic Assessment and Plan: reasonable control at this time on carvedilol 12.5 bid and nifedipine 30 qday would benefit from ADOLFO-I/ARB if her potassium is okay once renal function stabilizes these further adjustments can be done as an outpatient (4) Anemia: Code(s): D64.9 - Anemia, unspecified Status: Acute Assessment and Plan: partly related to CKD and acute illness follow trend of H/H no need for HALEY at this time (5) Diabetes: Code(s): E11.9 - Type 2 diabetes mellitus without complications Status: Chronic Assessment and Plan: follow accuchecks on oral hypoglycemics, SSI, and Lantus Will continue to follow. Subjective Date/time seen: 02/25/22 10:16 No new issues or problems to report at this time; no events overnight or earlier this morning; feels reasonably well; no apparent distress noted. Exam Narrative: General: WD/WN elderly female in NAD Heart: normal S1 and S2; no rub Lungs: clear to auscultation Abdomen: soft, nontender, nondistended, positive bowel sounds Extremities: no cyanosis or clubbing; no edema Skin: warm and intact Objective Data Vital Signs Vital Signs: Vital Signs Temp Pulse Resp BP Pulse Ox O2 Del Method 02/25/22 08:00 Room Air 02/25/22 09:29 76 18 02/25/22 09:18 80 18 02/25/22 09:06 80 02/25/22 07:51 93 Room Air 02/25/22 05:05 36.7 C 77 18 126/76 95 02/25/22 02:49 80 18 02/25/22 02:40 90 18 02/24/22 22:00 36.7 C 77 18 124/98 H 92 02/24/22 20:00 76 18 92 Room Air 02/24/22 21:02 76 18 02/24/22 20:55 81 18 02/24/22 20:55 81 92 Room Air 02/24/22 20:25 86 02/24/22 15:30 36.5 C 73 16 135/56 L 96 02/24/22 15:08 78 18 02/24/22 15:00 82 18 Intake/Output Intake/Output: Intake & Output 02/23/22 02/23/22 02/24/22 02/25/22 00:59 23:59 23:59 23:59 Intake Total 1890 Balance 1890 Meds/Results Medications: Active Medications Generic Name Dose Route Start Last Admin Trade Name Freq PRN Reason Stop Dose Admin Acetaminophen 500 mg 02/20/22 08:07 Acetaminophen 500 Mg Tablet PO Q4-6H PRN Pain Albuterol 2.5 mg 02/19/22 20:00 02/25/22 09:18 Albuterol Sulfate Neb 2.5 Mg/3 Ml Inh INHALATION 2.5 mg Q6HRT SURJIT Administration Atorvastatin Calcium 10 mg 02/20/22 21:00 02/24/22 20:25 Atorvastatin 10 Mg Tablet PO 10 mg HS SURJIT Administration Calcium Carbonate 500 mg 02/20/22 09:00 02/25/22 09:06 Calcium/Vitamin D 500 Mg Tablet PO 500 mg DAILY SURJIT Administration Carvedilol 12.5 mg 02/23/22 21:00 02/25/22 09:06 Carvedilol 12.5 Mg Tablet PO 12.5 mg Q12HR SURJIT Administration Dextrose 12.5 gm 02/19/22 17:49
--- NOTE | 2022-02-25 10:28 | PM.DS ---
DS: Admitting Diagnosis Discharge Date 02/25/2022 Admitting Diagnosis Hypoxia, acute renal failure DS: Summary Hospital Course Hospital Course: This is a 81-year-old female patient who came in for evaluation of hypoxia in the 80s.? The patient was placed on oxygen at 3 L per nasal cannula and increase her saturations at 97%.? The patient does not typically wear oxygen.? Her daughter is at the bedside answering questions for her.? She denies any fever chills or any nausea vomiting.? Chest x-ray was read as mild atelectasis at left lung base.? White count 12.5.? H&H is 10.5 and 32.5.? Creatinine 2.9 which was 1.61 month ago.? GFR 16.? Influenza A/B and COVID negative.? patient was empirically started on IV Rocephin and azithromycin for possible community-acquired pneumonia. Nephrology was consulted for acute renal failure. She has finished course of her antibiotics. per nephrology recommendations: acute on chronic CKD versus progression of CKD(?) suspect the later (but no labs in the last year) probably CKD stage 4 known chronic kidney disease with a creatinine of 1.6mg/dl about a year ago on admission, up to 2.9mg/dl with peak creatinine of 3.1mg/dl down to 2.5mg/dl today evaluation to date: renal ultrasound normal urine electrolytes pending complements okay UA with some protein and RBCs other labs pending at this point, she should focus on controlling her blood pressure, sugars/DM, and watching her diet to ensure stability in renal function she should follow-up with Nephrology for ongoing CKD management on discharge At this time patient is back to baseline and is being discharged back to [facility]. Time Spent with Patient Time attestation: Total time spent providing and/or coordinating discharge services: Exam Narrative: General: WD/WN elderly female in NAD Heart: normal S1 and S2; no rub Lungs: clear to auscultation Abdomen: soft, nontender, nondistended, positive bowel sounds Extremities: no cyanosis or clubbing; no edema Skin: warm and intact DS: Data Data Completed and Pending Labs on day of discharge: Labs from last 24 hours 02/25/22 02/25/22 02/25/22 08:25 05:25 05:25 WBC 9.7 RBC 3.46 L Hgb 9.2 L Hct 29.5 L MCV 85.3 MCH 26.6 MCHC 31.2 L RDW 13.2 Plt Count 255 MPV 9.7 Sodium 140 Potassium 4.1 Chloride 105 Carbon Dioxide 25 Anion Gap 10 BUN 51 H Creatinine 2.50 H Estim Creat Clear Calc 17 Estimated GFR 19 L Glucose 185 H POC Capillary Glucose 171 H Calcium 8.1 L Phosphorus 4.7 H Albumin 3.3 L Tot Complement (CH50) 02/24/22 02/24/22 02/24/22 20:24 16:44 12:06 WBC RBC Hgb Hct MCV MCH MCHC RDW Plt Count MPV Sodium Potassium Chloride Carbon Dioxide Anion Gap BUN Creatinine Estim Creat Clear Calc Estimated GFR Glucose POC Capillary Glucose 169 H 206 H 228 H Calcium Phosphorus Albumin Tot Complement (CH50) 02/19/22 20:30 WBC RBC Hgb Hct MCV MCH MCHC RDW Plt Count MPV Sodium Potassium Chloride Carbon Dioxide Anion Gap BUN Creatinine Estim Creat Clear Calc Estimated GFR Glucose POC Capillary Glucose Calcium Phosphorus Albumin Tot Complement (CH50) >60 H Discharge Plan Discharge Consulting providers: Adolfo Steiner Discharging Clinician: Jamal Cabello Anticipated Discharge Date/Time: 02/25/22 09:53 Patient Disposition: SNF Activity: august shower Diet: heart healthy Stand Alone Forms: General Discharge Information, [facility] Discharge Follow-up/Referrals: Moon,Celeste Ward MD [Primary Care Provider] - Discharge Medications: Continued nifedipine 30 mg tablet extended release 24hr 30 mg PO DAILY polyethylene glycol 3350 [Miralax] 17 gram Powder In Packet 17 g PO PRN PRN (Reason: Constipati
[2022-02-25 12:21] LABS: Glucose Point of Care 301 mg/dl (65-105)
[2022-02-25] MEDS: INSULIN ASPART (*BKC) 100 UNITS/ML SUB-Q (12:22)
[2022-02-25 12:39] LABS: EDCOVIDSCREEN Negative (Negative)
[2022-02-25 17:03] LABS: Glucose Point of Care 200 mg/dl (65-105)
== END 2022-02-25 17:43 | DRG 194 ==
LOC: ANHED 14:16 → ANH2MED 16:35
PROVIDERS: Emergency Medicine; Family Medicine; Internal Medicine Nephrology; Nurse Practitioner; Physician Assistant; Admitting Provider Hospitalist; Emergency Provider Emergency Medicine; PCP Family Medicine; Visit Provider Hospitalist
DX: J18.9 Pneumonia, unspecified organism (principal); N17.9 Acute kidney failure, unspecified; N18.4 Chronic kidney disease, stage 4 (severe); Z20.822 Contact with and (suspected) exposure to COVID-19; D63.1 Anemia in chronic kidney disease; D75.839 Thrombocytosis, unspecified; E11.22 Type 2 diabetes mellitus with diabetic chronic kidney disease; E86.0 Dehydration; E11.51 Type 2 diabetes mellitus with diabetic peripheral angiopathy without gangrene; E78.5 Hyperlipidemia, unspecified; F41.9 Anxiety disorder, unspecified; F32.A Depression, unspecified; I12.9 Hypertensive chronic kidney disease with stage 1 through stage 4 chronic kidney disease, or unspecified chronic kidney disease; K21.9 Gastro-esophageal reflux disease without esophagitis; R09.02 Hypoxemia; R05.3 Chronic cough; Z96.643 Presence of artificial hip joint, bilateral; Z79.84 Long term (current) use of oral hypoglycemic drugs; Z90.49 Acquired absence of other specified parts of digestive tract; Z79.4 Long term (current) use of insulin
CPT/HCPCS: 36415; 36600; 71046; 76775; 80053; 80069; 82550; 82805; 82948; 83036; 83605; 83615; 83690; 83735; 83883; 83970; 84443; 85025; 85027; 85652; 86160; 86162; 86334; 87040; 87426; 87502; 87637; 93005; 94640; 97110; 97161; 97165; 97530; 97535; 99285; A9270; C9113; C9803; J0131; J0456; J0696; J1815; J1956; U0003; U0005

== ENCOUNTER 2023-04-01 19:11 | Inpatient (IN) | payer MEDICARE, MEDICAID, SELFPAY ==
[2023-04-01] VITALS (19 sets, daily range): BP systolic 153–181; BP diastolic 65–82; PULSE 65–77; RESP 14–21; TEMP 36.6; O2SAT 92–100
--- NOTE | ~2023-04-01 | XR_ITS ---
EXAMINATION: XR chest 1V portable Exam Date/Time: 04/01/2023 20:05 OUTSEWER HISTORY: cough Comparison: 02/19/2022. RESULT: Lines, tubes, and devices: None. Lungs and pleura: Mild diffuse reticular opacities. Patchy subsegmental bibasilar opacities. Cardiomediastinal silhouette: Stable. Other: No acute osseous or upper abdominal finding. IMPRESSION: Bibasilar atelectasis/consolidation, worse in the left lower lung. Mild interstitial edema versus chr onic senescent change. Reviewed, dictated and finalized at location [facility] IMPRESSION: Bibasilar atelectasis/consolidation, worse in the left lower lung. Mild interst itial edema versus chronic senescent change.
[2023-04-01 19:55] LABS: Basophils Percent Auto 0.7 % (0.2-1.2); Eosinophils Absolute Auto 0.3 K/mm3 (0-0.3); Hematocrit 35.5 % (37.0-47.0); Hemoglobin 10.8 g/dL (12.0-15.0); Immature Granulocyte Absolute 0.02 K/mm3 (0.00-0.031); Immature Granulocyte Percent A 0.3 % (0-0.5); Lymphocytes Absolute Auto 2.84 K/mm3 (0.9-3.2); Lymphocytes Percent Auto 47.6 % (18.3-44.2); Mean Corpuscular HGB Conc 30.4 g/dl (32-36); Mean Corpuscular Hemoglobin 25.8 pg (26-34); Mean Corpuscular Volume 84.9 fl (80-100); Mean Platelet Volume 10.6 fl (7.4-10.4); Monocytes Absolute Auto 0.5 K/mm3 (0.1-0.6); Neutrophils Absolute Auto 2.2 K/mm3 (1.3-6.7); Neutrophils Percent Auto 37.4 % (45.5-73.1); Platelet Count Result 211 k/mm3 (150-375); Red Blood Count 4.18 M/mm3 (4.2-5.4); Red Cell Distribution Width 13.7 % (11.5-14.5)
[2023-04-01 20:06] LABS: Alanine Aminotransferase 16 U/L (6-35); Albumin Level 3.6 g/dL (3.5-5.1); Alkaline Phosphatase 88 U/L (38-126); Anion Gap 7 mmol/L (8-16); Aspartate Amino Transferase 23 U/L (14-36); Bilirubin,Total 0.3 mg/dL (0.2-1.3); Blood Urea Nitrogen 41 mg/dL (7-17); Calcium 8.4 mg/dL (8.4-10.2); Carbon Dioxide 24 mmol/L (22-30); Chloride 108 mmol/L (98-107); Estimated CRCL calculation 18 ml/min; Estimated Glomerular Filt Rate 18; Glucose 245 mg/dL (65-110); Potassium 4.1 mmol/L (3.4-5.0); Sodium 139 mmol/L (137-145)
[2023-04-01] MEDS: SODIUM CHLORIDE 0.9% IV 1,000 ML 999 ML IV CONT (20:08)
--- NOTE | 2023-04-01 20:15 | ED.SOB ---
HPI - SOB/Dyspnea General Chief Complaint: Shortness of Breath/Dyspnea Stated Complaint: SOB, PNEUMONIA, WHEEZING Time Seen by Provider: 04/01/23 19:25 History of Present Illness HPI Narrative: patient is an 82-year-old female presenting with shortness of breath. Patient states that she has been feeling short of breath for the last couple of days. States that she feels wheezy. Denies any chest pain. She had an outpatient chest x-ray that showed pneumonia so she was sent in for evaluation. States that she was nauseated yesterday. No vomiting or diarrhea. No leg swelling. No abdominal pain. Complains of nonproductive cough. Related Data Home Medications Medication Instructions Recorded Confirmed acetaminophen 500 mg tablet 500 mg PO Q4-6H PRN Pain 02/20/22 04/02/23 (Acetaminophen Extra Strength) atorvastatin 10 mg tablet 10 mg PO HS 02/20/22 04/02/23 calcium carbonate 500 mg-vitamin 1 tablet PO DAILY 02/20/22 04/02/23 D3 5 mcg (200 unit) tablet (Os-Naveen 500 + D3) carvedilol 3.125 mg tablet 3.125 mg PO BID 02/20/22 04/02/23 cholecalciferol (vitamin D3) 50 50 mcg PO WEEKLY 02/20/22 04/02/23 mcg (2,000 unit) capsule (Vitamin D3) famotidine 20 mg tablet 20 mg PO DAILY 02/20/22 04/02/23 ferrous sulfate 325 mg (65 mg 325 mg PO DAILY 02/20/22 04/02/23 iron) capsule,extended release furosemide 20 mg tablet 20 mg PO DAILY 02/20/22 04/02/23 glimepiride 4 mg tablet 4 mg PO DAILY 02/20/22 04/02/23 insulin glargine 100 unit/mL (3 10 unit subcut HS 02/20/22 04/02/23 mL) subcutaneous pen (Lantus Solostar U-100 Insulin) nifedipine 30 mg tablet,extended 30 mg PO DAILY 02/20/22 04/02/23 release 24 hr ondansetron HCl 4 mg tablet 4 mg PO HS PRN Nausea 02/20/22 04/02/23 paroxetine HCl 40 mg tablet 40 mg PO DAILY 02/20/22 04/02/23 polyethylene glycol 3350 17 gram 17 g PO PRN PRN Constipation 02/20/22 04/02/23 oral powder packet (Miralax) linagliptin 5 mg tablet (Tradjenta) 5 mg PO DAILY 04/02/23 04/02/23 Allergies Allergy/AdvReac Type Severity Reaction Status Date / Time Penicillins Allergy Rash Verified 04/06/23 09:16 Review of Systems Review of Systems: All systems reviewed & are unremarkable except as noted in HPI and below PMFSH Past Medical History Medical History Anemia Anxiety Chronic GERD CRF (chronic renal failure) Depression Diabetes Diabetic acidosis, type II History of gastroesophageal reflux (GERD) History of hypertension Hyperlipidemia PVD (peripheral vascular disease) Surgical History Surgical History H/O total hip arthroplasty uzair History of tonsillectomy Hx of cholecystectomy Hx of colectomy Family History Family History Mother Acute myocardial infarction Sibling Hypertension Diabetes mellitus Depression Social History Social History Social History: The patient has 4 children. She is . Her daughter Cydney mukherjee is the durable power immigration attorney for healthcare. The patient was a homemaker. She is lifelong nonsmoker. She does not use any alcohol marijuana or illicit drugs. Code status full code Smoking status: Never smoker Alcohol intake: never Substance use: never Substance use type: does not use Do You Feel Safe in your Home?: Yes Lack of Transportation: No Lack of Food: Never True Current Housing: I Have Housing Concerned About Future Housing: No Difficulty Paying Gas/Electric Bills: No Difficulty Paying for Meds: No Currently Unemployed: No Education: Grade School Difficulty w/ Childcare or Family Care: No Spiritual care concerns: No Exam Narrative: GENERAL: Elderly female sitting up in bed in no acute distress, pleasant cooperative HEAD: Normocephalic, atraumatic. EYES: P
--- NOTE | 2023-04-01 20:20 | ECG_ITS ---
Measurements Intervals [place] Rate: 70 P: 60 DC: 206 QRS: -21 QRSD: 95 T: 135 QT: 412 QTc: 446 Interpretive Statements SINUS RHYTHM WITH SINUS ARRHYTHMIA BORDERLINE LEFT AXIS DEVIATION [QRS AXIS < -20] ST DEVIATION AND MODERATE T-WAVE ABNORMALITY, CONSIDER LATERAL ISCHEMIA [-0.1+ mV T WAVE IN I/aVL/V5/V6] ABNORMAL ECG COMPARED TO ECG 02/19/2022 11:13:35 SINUS ARRHYTHMIA NOW PRESENT Electronically Signed On 04-02-2023 13:56:55 GRAVURE [employer]ESS OPERATOR by Nathan Archibald M.D.
[2023-04-01] MEDS: ALBUTEROL SULFATE NEB 2.5 MG/3 ML INH 5 MG INHALATION (20:21)
[2023-04-01] MEDS: IPRATROPIUM BR 0.02% INH SOLN 0.5 MG/2.5 ML VIAL INHALATION (20:21)
[2023-04-01 20:28] LABS: Lipase 130 U/L (23-300)
[2023-04-01 20:40] LABS: NT Pro B Type Natriuretic Pept 2250 pg/mL (19.9-100); Troponin I 0.029 ng/mL (0.000-0.034)
[2023-04-01] MEDS: FUROSEMIDE INJ 40 MG/4 ML VIAL IV PUSH (22:04)
[2023-04-01 22:36] LABS: Appearance Urine Cloudy (Clear); Bacteria Urine None Seen /hpf; Bilirubin Urine Negative (Negative); Blood Urine Negative (Negative); Color Urine Yellow (Yellow); Glucose Urine UA 1+ mg/dL (Negative); Ketones Urine Negative (Negative); Leukocyte Esterase Ur Negative LEU/UL (Negative); Need Manual Microscopic Reviewed; Nitrate Urine Negative (Negative); Protein Urine 3+ mg/dL (Negative); RBC Urine 0-2 /hpf (0-2); Specific Grav Ur 1.018 (1.001-1.035); Squamous Epithelial Cell Urine None seen /hpf (Few); Urobilinogen Urine 0.2 mg/dL (<2.0); WBC Urine 0-5 /hpf
[2023-04-01 22:37] LABS: Add Urine Microscopic? YES
[2023-04-01 23:22] LABS: Influenza A QL RT-PCR Negative (Negative); Influenza B QL RT-PCR Negative (Negative); RSV RNA, RT-PCR Positive (Negative); SARS-CoV-2 RNA PCR Negative (Negative)
--- NOTE | 2023-04-01 23:42 | PM.IMHP ---
H&P: HPI History of Present Illness Date/Time: 04/01/23 23:42 Chief Complaint: SOB/Cough Narrative: 82-year-old female presenting with shortness of breath.? Patient states that she has been feeling short of breath for the last couple of days.? States that she feels wheezy.?This is associated with nonproductive cough, Denies any chest pain.? She had an outpatient chest x-ray that showed pneumonia so she was sent in for evaluation.? States that she was nauseated yesterday.? No vomiting or diarrhea.? No leg swelling.? No abdominal pain.? evaluation in the emergency department showed the patient has elevated proBNP, chest x-ray suggestive of interstitial edema or pneumonia, she was given breathing treatment as well as 40 mg of IV furosemide and I was consulted to admit this patient for further management. she says she was feeling a little bit better during my encounter Review of Systems Review of Systems: All systems reviewed & are unremarkable except as noted in HPI and below PMFSH Past Medical History Medical History Anemia Anxiety Chronic GERD CRF (chronic renal failure) Depression Diabetes Diabetic acidosis, type II History of gastroesophageal reflux (GERD) History of hypertension Hyperlipidemia PVD (peripheral vascular disease) Surgical History Surgical History H/O total hip arthroplasty uzair History of tonsillectomy Hx of cholecystectomy Hx of colectomy Family History Family History Mother Acute myocardial infarction Sibling Hypertension Diabetes mellitus Depression Social History Social History Social History: The patient has 4 children. She is . Her daughter Cydney mukherjee is the durable power clerical support specialist for healthcare. The patient was a homemaker. She is lifelong nonsmoker. She does not use any alcohol marijuana or illicit drugs. Code status full code Smoking status: Never smoker Alcohol intake: never Substance use: never Substance use type: does not use Lack of Transportation: No Lack of Food: Never True Current Housing: I Have Housing Concerned About Future Housing: No Difficulty Paying Gas/Electric Bills: No Difficulty Paying for Meds: No Currently Unemployed: No Education: Grade School Difficulty w/ Childcare or Family Care: No Spiritual care concerns: No Meds Home Medications and Allergies Home Medications Medication Instructions Recorded Confirmed Type acetaminophen 500 mg tablet 500 mg PO Q4-6H PRN Pain 02/20/22 04/02/23 History (Acetaminophen Extra Strength) atorvastatin 10 mg tablet 10 mg PO HS 02/20/22 04/02/23 History calcium carbonate 500 mg-vitamin 1 tablet PO DAILY 02/20/22 04/02/23 History D3 5 mcg (200 unit) tablet (Os-Naveen 500 + D3) carvedilol 3.125 mg tablet 3.125 mg PO BID 02/20/22 04/02/23 History cholecalciferol (vitamin D3) 50 50 mcg PO WEEKLY 02/20/22 04/02/23 History mcg (2,000 unit) capsule (Vitamin D3) famotidine 20 mg tablet 20 mg PO DAILY 02/20/22 04/02/23 History ferrous sulfate 325 mg (65 mg 325 mg PO DAILY 02/20/22 04/02/23 History iron) capsule,extended release furosemide 20 mg tablet 20 mg PO DAILY 02/20/22 04/02/23 History glimepiride 4 mg tablet 4 mg PO DAILY 02/20/22 04/02/23 History insulin glargine 100 unit/mL (3 10 unit subcut HS 02/20/22 04/02/23 History mL) subcutaneous pen (Lantus Solostar U-100 Insulin) nifedipine 30 mg tablet,extended 30 mg PO DAILY 02/20/22 04/02/23 History release 24 hr ondansetron HCl 4 mg tablet 4 mg PO HS PRN Nausea 02/20/22 04/02/23 History paroxetine HCl 40 mg tablet 40 mg PO DAILY 02/20/22 04/02/23 History polyethylene glycol 3350 17 gram 17 g PO PRN PRN Constipation 02/20/22 04/02/23 History oral powder packet (M
[2023-04-02] VITALS (17 sets, daily range): BP systolic 158–186; BP diastolic 71–91; PULSE 68–90; RESP 15–22; TEMP 36.4–36.9; O2SAT 92–95; BMI 34.7
[2023-04-02] MEDS: AZITHROMYCIN 500 MG/NS 250 ML 500 MG/250 ML BAG 250 MG IVPB (01:00)
--- NOTE | 2023-04-02 01:06 | ADMGEN ---
This patient, Sierra Danielle, was admitted to 2 Medical Room 244-. Patient/family oriented to hospital policies and general routines including ID bracelet, bed and alarms, visiting hours, pain management, procedures, bathroom and other care routines, personal items, smoking policy, room service/diet, and visiting hours. Information on how to activate the Rapid Response Team has been discussed. Patient/Family are encouraged to report perceived risks to care and to ask questions if they do not understand what they are told or what they should do.
[2023-04-02 02:13] LABS: Basophils Percent Auto 0.5 % (0.2-1.2); Eosinophils Absolute Auto 0.3 K/mm3 (0-0.3); Eosinophils Percent Auto 3.9 % (0-4.4); Hematocrit 33.5 % (37.0-47.0); Hemoglobin 10.2 g/dL (12.0-15.0); Immature Granulocyte Absolute 0.06 K/mm3 (0.00-0.031); Immature Granulocyte Percent A 0.7 % (0-0.5); Lymphocytes Absolute Auto 2.99 K/mm3 (0.9-3.2); Lymphocytes Percent Auto 35.6 % (18.3-44.2); Mean Corpuscular HGB Conc 30.4 g/dl (32-36); Mean Corpuscular Volume 85.5 fl (80-100); Mean Platelet Volume 10.3 fl (7.4-10.4); Monocytes Absolute Auto 0.6 K/mm3 (0.1-0.6); Monocytes Percent Auto 7.6 % (2.6-8.5); Neutrophils Absolute Auto 4.3 K/mm3 (1.3-6.7); Neutrophils Percent Auto 51.7 % (45.5-73.1); Platelet Count Result 190 k/mm3 (150-375); Red Blood Count 3.92 M/mm3 (4.2-5.4); Red Cell Distribution Width 13.6 % (11.5-14.5); White Blood Count 8.4 K/mm3 (4.5-10.0)
[2023-04-02 02:25] LABS: Anion Gap 11 mmol/L (8-16); Blood Urea Nitrogen 40 mg/dL (7-17); Calcium 8.1 mg/dL (8.4-10.2); Carbon Dioxide 20 mmol/L (22-30); Chloride 112 mmol/L (98-107); Estimated CRCL calculation 16 ml/min; Estimated Glomerular Filt Rate 17; Glucose 179 mg/dL (65-110); Sodium 143 mmol/L (137-145)
[2023-04-02 02:34] LABS: Troponin I 0.024 ng/mL (0.000-0.034)
--- NOTE | 2023-04-02 09:52 | PC.NURSE ---
spoke with daughter and updated her on pt condition
--- NOTE | 2023-04-02 10:07 | P.PNIM_ITS ---
Progress Note: A&P Assessment and Plan (1) Interstitial edema: Code(s): R60.9 - Edema, unspecified Status: Acute Assessment and Plan: * As evidenced per CXR pt has mild interstitial edema. * BNP 2250. * Lasix IVP received in ER and she has her home dose continued today. * Continue to monitor respiratory status and function as well as labs and VS. (2) Pneumonia: Code(s): J18.9 - Pneumonia, unspecified organism Status: Acute Assessment and Plan: * Again as evidenced by CXR with bibasilar atelectasis/consolidation worse in the left lower lung. * Continue Azithromycin and Rocephin for abx therapy. * RSV is positive, likely the underlying process for her change in respiratory status. * Not currently requiring supplemental oxygen. * Continue to monitor labs and VS. * Nebulizer treatments of Ipratropium and Albuterol are ordered. (3) CKD (chronic kidney disease) stage 4, GFR 15-29 ml/min: Code(s): N18.4 - Chronic kidney disease, stage 4 (severe) Status: Acute Assessment and Plan: * Baseline Creatining ranges from 2.5 which is where she was in ER, to 2.8. * She has had interval increase in Creatinine from 2.5-->2.7 today. * Pt has history of Fluid overload, however, does not appear to currently have fluid overload. * She has been followed by Nephrology in the past and had Renal US 02/20/22 that was unremarkable. At that time her Creatinine has increased to 3.10. * Avoid Nephrotoxic meds as much as possible. * Pt not on ACEI. * Due to her interstitial edema, she has received Lasix in the past 24 hours. Holding her home dose of 20 mg po for now. Once renal function is no longer trending upward, recommend restarting. * Daily weight * Accurate I&O * If worsening of renal function with daily labs, consider Nephrology consult and repeat of Renal US. * Check daily BMP. (4) RSV bronchitis: Code(s): J20.5 - Acute bronchitis due to respiratory syncytial virus Status: Acute Assessment and Plan: * See problem #2 above. (5) Diabetes: Code(s): E11.9 - Type 2 diabetes mellitus without complications Status: Chronic Assessment and Plan: * Glucose checks AC and HS * Hypoglycemic protocol * Continue Lantus 10 units HS * SSI low dose Novolog initiated. * Hold oral hypoglycemics. * Continue heart healthy diet. (6) Hyperlipidemia: Code(s): E78.5 - Hyperlipidemia, unspecified Status: Chronic Assessment and Plan: * Continue Lipitor 10 mg HS * Continue heart healthy diet. (7) Anemia: Code(s): D64.9 - Anemia, unspecified Status: Chronic Assessment and Plan: * In the setting of Chronic Kidney Disease. * Monitor H&H, no active signs of bleeding. * Continue Ferrous Sulfate 325 mg daily. (8) Depression: Code(s): F32.A - Depression, unspecified Status: Chronic Assessment and Plan: * Continue Paxil 40 mg po daily. Time Spent With Patient Time: 30 minutes Subjective Date/time seen: 04/02/23 0830 Interval history: This very pleasant 82-year-old female patient was examined at bedside today in interval assessment after being admitted to the hospital with pneumonia, RSV bronchitis, and chronic kidney disease. Patient endorses she believes she is doing a little better but she is not back to her baseline yet. She continues to feel short of breath at times with a dry cough. She is receiving azithromycin and Rocephin IV. There are no new concerns or complaints today. Review of Systems Review
--- NOTE | 2023-04-02 10:07 | PM.IMPN ---
Progress Note: A&P Assessment and Plan (1) Interstitial edema: Code(s): R60.9 - Edema, unspecified Status: Acute Assessment and Plan: As evidenced per CXR pt has mild interstitial edema. BNP 2250. Lasix IVP received in ER and she has her home dose continued today. Continue to monitor respiratory status and function as well as labs and VS. (2) Pneumonia: Code(s): J18.9 - Pneumonia, unspecified organism Status: Acute Assessment and Plan: Again as evidenced by CXR with bibasilar atelectasis/consolidation worse in the left lower lung. Continue Azithromycin and Rocephin for abx therapy. RSV is positive, likely the underlying process for her change in respiratory status. Not currently requiring supplemental oxygen. Continue to monitor labs and VS. Nebulizer treatments of Ipratropium and Albuterol are ordered. (3) CKD (chronic kidney disease) stage 4, GFR 15-29 ml/min: Code(s): N18.4 - Chronic kidney disease, stage 4 (severe) Status: Acute Assessment and Plan: Baseline Creatining ranges from 2.5 which is where she was in ER, to 2.8. She has had interval increase in Creatinine from 2.5-->2.7 today. Pt has history of Fluid overload, however, does not appear to currently have fluid overload. She has been followed by Nephrology in the past and had Renal US 02/20/22 that was unremarkable. At that time her Creatinine has increased to 3.10. Avoid Nephrotoxic meds as much as possible. Pt not on ACEI. Due to her interstitial edema, she has received Lasix in the past 24 hours. Holding her home dose of 20 mg po for now. Once renal function is no longer trending upward, recommend restarting. Daily weight Accurate I&O If worsening of renal function with daily labs, consider Nephrology consult and repeat of Renal US. Check daily BMP. (4) RSV bronchitis: Code(s): J20.5 - Acute bronchitis due to respiratory syncytial virus Status: Acute Assessment and Plan: See problem #2 above. (5) Diabetes: Code(s): E11.9 - Type 2 diabetes mellitus without complications Status: Chronic Assessment and Plan: Glucose checks AC and HS Hypoglycemic protocol Continue Lantus 10 units HS SSI low dose Novolog initiated. Hold oral hypoglycemics. Continue heart healthy diet. (6) Hyperlipidemia: Code(s): E78.5 - Hyperlipidemia, unspecified Status: Chronic Assessment and Plan: Continue Lipitor 10 mg HS Continue heart healthy diet. (7) Anemia: Code(s): D64.9 - Anemia, unspecified Status: Chronic Assessment and Plan: In the setting of Chronic Kidney Disease. Monitor H&H, no active signs of bleeding. Continue Ferrous Sulfate 325 mg daily. (8) Depression: Code(s): F32.A - Depression, unspecified Status: Chronic Assessment and Plan: Continue Paxil 40 mg po daily. Time Spent With Patient Time: 30 minutes Subjective Date/time seen: 04/02/23 0830 Interval history: This very pleasant 82-year-old female patient was examined at bedside today in interval assessment after being admitted to the hospital with pneumonia, RSV bronchitis, and chronic kidney disease. Patient endorses she believes she is doing a little better but she is not back to her baseline yet. She continues to feel short of breath at times with a dry cough. She is receiving azithromycin and Rocephin IV. There are no new concerns or complaints today. Review of Systems Review of Systems: All systems reviewed & are unremarkable except as noted in HPI and below Exam Const: General: no acute distress Other: Elderly female patient lying supine in bed HENMT: Face/Nose/Sinus: Normal nares present Mouth: Yes moist mucous membranes Other: Edentulous Eyes: General: appearance normal, both eyes and all related structures Neck: Neck: supple and no JVD Lymphatic: lymphadenopathy not noted Resp: Effort &
[2023-04-02] MEDS: FERROUS SULFATE 325 MG TABLET DR BY MOUTH (10:50)
[2023-04-02] MEDS: NIFEdipine 30 MG TAB.ER.24 PO (10:50)
[2023-04-02] MEDS: FAMOTIDINE 20 MG TABLET PO (10:50)
--- NOTE | 2023-04-02 10:52 | PC.NURSE ---
pt eating breakfast at this time per her request, will defer 1200 accucheck due to altered meal times
[2023-04-02] MEDS: ALBUTEROL SULFATE NEB 2.5 MG/3 ML INH INHALATION ×2 (11:21→20:43)
[2023-04-02] MEDS: IPRATROPIUM BR 0.02% INH SOLN 0.5 MG/2.5 ML VIAL INHALATION (11:21)
[2023-04-02 12:40] LABS: Hemoglobin A1C 9.3 % (<5.7)
[2023-04-02 17:14] LABS: Glucose Point of Care 172 mg/dl (65-105)
[2023-04-02] MEDS: carvediloL 3.125 MG TABLET PO (17:48)
[2023-04-02 20:39] LABS: Glucose Point of Care 195 mg/dl (65-105)
[2023-04-02] MEDS: INSULIN GLARGINE (*BKC) 100 UNITS/ML 10 UNITS SUB-Q (21:58)
[2023-04-02] MEDS: ATORVASTATIN 10 MG TABLET PO (22:06)
[2023-04-03] VITALS (10 sets, daily range): BP systolic 158–167; BP diastolic 71–82; PULSE 76–89; RESP 14–20; TEMP 36.3–37.1; O2SAT 92
[2023-04-03 06:11] LABS: Basophils Percent Auto 0.4 % (0.2-1.2); Eosinophils Absolute Auto 0.4 K/mm3 (0-0.3); Eosinophils Percent Auto 4.8 % (0-4.4); Hematocrit 31.7 % (37.0-47.0); Hemoglobin 10.2 g/dL (12.0-15.0); Immature Granulocyte Absolute 0.04 K/mm3 (0.00-0.031); Immature Granulocyte Percent A 0.5 % (0-0.5); Lymphocytes Absolute Auto 2.55 K/mm3 (0.9-3.2); Lymphocytes Percent Auto 33.7 % (18.3-44.2); Mean Corpuscular HGB Conc 32.2 g/dl (32-36); Mean Corpuscular Volume 83.9 fl (80-100); Mean Platelet Volume 10.6 fl (7.4-10.4); Monocytes Absolute Auto 0.5 K/mm3 (0.1-0.6); Monocytes Percent Auto 7.1 % (2.6-8.5); Neutrophils Absolute Auto 4.1 K/mm3 (1.3-6.7); Neutrophils Percent Auto 53.5 % (45.5-73.1); Platelet Count Result 205 k/mm3 (150-375); Red Blood Count 3.78 M/mm3 (4.2-5.4); Red Cell Distribution Width 13.4 % (11.5-14.5); White Blood Count 7.6 K/mm3 (4.5-10.0)
[2023-04-03 06:18] LABS: Anion Gap 7 mmol/L (8-16); Blood Urea Nitrogen 36 mg/dL (7-17); Carbon Dioxide 22 mmol/L (22-30); Chloride 113 mmol/L (98-107); Estimated CRCL calculation 20 ml/min; Estimated Glomerular Filt Rate 21; Glucose 181 mg/dL (65-110); Sodium 142 mmol/L (137-145)
[2023-04-03 08:10] LABS: Glucose Point of Care 168 mg/dl (65-105)
[2023-04-03] MEDS: carvediloL 3.125 MG TABLET PO ×2 (08:35→17:17)
[2023-04-03] MEDS: NIFEdipine 30 MG TAB.ER.24 PO (08:36)
[2023-04-03] MEDS: FAMOTIDINE 20 MG TABLET PO (08:36)
--- NOTE | 2023-04-03 08:37 | P.PNIM_ITS ---
Progress Note: A&P Assessment and Plan (1) Interstitial edema: Code(s): R60.9 - Edema, unspecified Status: Acute Assessment and Plan: * As evidenced per CXR pt has mild interstitial edema. * BNP 2250. * Lasix IVP received in ER and she has her home dose continued. Continue to monitor respiratory status and function as well as labs and VS. (2) Pneumonia: Code(s): J18.9 - Pneumonia, unspecified organism Status: Acute Assessment and Plan: * Again as evidenced by CXR with bibasilar atelectasis/consolidation worse in the left lower lung. * Continue Azithromycin and Rocephin for abx therapy. * RSV is positive, likely the underlying process for her change in respiratory status. * Not currently requiring supplemental oxygen. * Continue to monitor labs and VS. * Nebulizer treatments of Ipratropium and Albuterol are ordered * WILL ADD STEROID. (3) CKD (chronic kidney disease) stage 4, GFR 15-29 ml/min: Code(s): N18.4 - Chronic kidney disease, stage 4 (severe) Status: Acute Assessment and Plan: * Baseline Creatining ranges from 2.5 which is where she was in ER, to 2.8. * She has had interval increase in Creatinine from 2.5-->2.7 BUT NOW IMPROVING * Pt has history of Fluid overload, however, does not appear to currently have fluid overload. * She has been followed by Nephrology in the past and had Renal US 02/20/22 that was unremarkable. At that time her Creatinine has increased to 3.10. * Avoid Nephrotoxic meds as much as possible. * Pt not on ACEI. * Due to her interstitial edema, she has received Lasix in the past 24 hours. Holding her home dose of 20 mg po for now. Once renal function is no longer trending upward, recommend restarting. * Daily weight * Accurate I&O. (4) RSV bronchitis: Code(s): J20.5 - Acute bronchitis due to respiratory syncytial virus Status: Acute Assessment and Plan: * See problem #2 above. (5) Diabetes: Code(s): E11.9 - Type 2 diabetes mellitus without complications Status: Chronic Assessment and Plan: * Glucose checks AC and HS * Hypoglycemic protocol * Continue Lantus 10 units HS * SSI low dose Novolog initiated. * Hold oral hypoglycemics. * Continue heart healthy diet. (6) Hyperlipidemia: Code(s): E78.5 - Hyperlipidemia, unspecified Status: Chronic Assessment and Plan: * Continue Lipitor 10 mg HS * Continue heart healthy diet. (7) Anemia: Code(s): D64.9 - Anemia, unspecified Status: Chronic Assessment and Plan: * In the setting of Chronic Kidney Disease. * Monitor H&H, no active signs of bleeding. * Continue Ferrous Sulfate 325 mg daily. (8) Depression: Code(s): F32.A - Depression, unspecified Status: Chronic Assessment and Plan: * Continue Paxil 40 mg po daily. Subjective Date/time seen: 04/03/23 08:37 Interval history: No overnight events. Feeling better. Still wheezes but much better than when she came in. Not on oxygen. Denies any leg swelling or chest pain Review of Systems Review of Systems: All systems reviewed & are unremarkable except as noted in HPI and below Exam Narrative: GENERAL: ? Elderly female sitting up in bed in no acute distress HEAD: Normocephalic, atraumatic. EYES: PERRLA and EOMI. ENT:? grossly unremarkable NECK: Supple. CHEST:? wheezing and crackles bilaterally, no respiratory distress HEART: Regular rate and rhythm, trace leg edema bilaterally ABDOMEN: Soft,
--- NOTE | 2023-04-03 08:37 | PM.IMPN ---
Progress Note: A&P Assessment and Plan (1) Interstitial edema: Code(s): R60.9 - Edema, unspecified Status: Acute Assessment and Plan: As evidenced per CXR pt has mild interstitial edema. BNP 2250. Lasix IVP received in ER and she has her home dose continued. Continue to monitor respiratory status and function as well as labs and VS. (2) Pneumonia: Code(s): J18.9 - Pneumonia, unspecified organism Status: Acute Assessment and Plan: Again as evidenced by CXR with bibasilar atelectasis/consolidation worse in the left lower lung. Continue Azithromycin and Rocephin for abx therapy. RSV is positive, likely the underlying process for her change in respiratory status. Not currently requiring supplemental oxygen. Continue to monitor labs and VS. Nebulizer treatments of Ipratropium and Albuterol are ordered WILL ADD STEROID. (3) CKD (chronic kidney disease) stage 4, GFR 15-29 ml/min: Code(s): N18.4 - Chronic kidney disease, stage 4 (severe) Status: Acute Assessment and Plan: Baseline Creatining ranges from 2.5 which is where she was in ER, to 2.8. She has had interval increase in Creatinine from 2.5-->2.7 BUT NOW IMPROVING Pt has history of Fluid overload, however, does not appear to currently have fluid overload. She has been followed by Nephrology in the past and had Renal US 02/20/22 that was unremarkable. At that time her Creatinine has increased to 3.10. Avoid Nephrotoxic meds as much as possible. Pt not on ACEI. Due to her interstitial edema, she has received Lasix in the past 24 hours. Holding her home dose of 20 mg po for now. Once renal function is no longer trending upward, recommend restarting. Daily weight Accurate I&O. (4) RSV bronchitis: Code(s): J20.5 - Acute bronchitis due to respiratory syncytial virus Status: Acute Assessment and Plan: See problem #2 above. (5) Diabetes: Code(s): E11.9 - Type 2 diabetes mellitus without complications Status: Chronic Assessment and Plan: Glucose checks AC and HS Hypoglycemic protocol Continue Lantus 10 units HS SSI low dose Novolog initiated. Hold oral hypoglycemics. Continue heart healthy diet. (6) Hyperlipidemia: Code(s): E78.5 - Hyperlipidemia, unspecified Status: Chronic Assessment and Plan: Continue Lipitor 10 mg HS Continue heart healthy diet. (7) Anemia: Code(s): D64.9 - Anemia, unspecified Status: Chronic Assessment and Plan: In the setting of Chronic Kidney Disease. Monitor H&H, no active signs of bleeding. Continue Ferrous Sulfate 325 mg daily. (8) Depression: Code(s): F32.A - Depression, unspecified Status: Chronic Assessment and Plan: Continue Paxil 40 mg po daily. Subjective Date/time seen: 04/03/23 08:37 Interval history: No overnight events. Feeling better. Still wheezes but much better than when she came in. Not on oxygen. Denies any leg swelling or chest pain Review of Systems Review of Systems: All systems reviewed & are unremarkable except as noted in HPI and below Exam Narrative: GENERAL: ? Elderly female sitting up in bed in no acute distress HEAD: Normocephalic, atraumatic. EYES: PERRLA and EOMI. ENT:? grossly unremarkable NECK: Supple. CHEST:? wheezing and crackles bilaterally, no respiratory distress HEART: Regular rate and rhythm, trace leg edema bilaterally ABDOMEN: Soft, nontender, nondistended EXTREMITIES: ? No edema. SKIN: Warm, dry, no rash. NEURO: Alert and oriented x3. PSYCH: Normal mood and affect. Objective Data Vital Signs Vital Signs: Vital Signs - 24 hr 04/02/23 11:24 04/02/23 11:24 04/02/23 11:35 Temperature Pulse Rate 74 69 Respiratory Rate 20 20 Blood Pressure Pulse Oximetry 92 Oxygen Delivery Room Air 04/02/23 12:00 04/02/23 14:00 04/02/23 17:48 Temperature 97.6 F Pulse Rate 76 86 86 Respirat
[2023-04-03] MEDS: CHOLECALCIFEROL 1,000 UNITS TABLET 2000 UNITS PO (08:38)
[2023-04-03] MEDS: FERROUS SULFATE 325 MG TABLET DR BY MOUTH (08:38)
[2023-04-03] MEDS: PARoxetine 20 MG TABLET 40 MG PO (08:38)
[2023-04-03 12:05] LABS: Glucose Point of Care 171 mg/dl (65-105)
[2023-04-03] MEDS: methylPREDNISolone SOD SUCC 40 MG VIAL IV PUSH (15:36)
[2023-04-03 17:20] LABS: Glucose Point of Care 192 mg/dl (65-105)
[2023-04-03 20:51] LABS: Glucose Point of Care 323 mg/dl (65-105)
[2023-04-03] MEDS: ATORVASTATIN 10 MG TABLET PO (21:04)
[2023-04-03] MEDS: INSULIN GLARGINE (*BKC) 100 UNITS/ML 10 UNITS SUB-Q (21:04)
[2023-04-04] VITALS (7 sets, daily range): BP systolic 148–166; BP diastolic 68–99; PULSE 77–103; RESP 18–19; TEMP 36.2–36.8; O2SAT 93–95
[2023-04-04] MEDS: methylPREDNISolone SOD SUCC 40 MG VIAL IV PUSH ×2 (03:05→15:23)
[2023-04-04 05:16] LABS: Basophils Percent Auto 0.3 % (0.2-1.2); Hematocrit 32.6 % (37.0-47.0); Hemoglobin 10.3 g/dL (12.0-15.0); Immature Granulocyte Absolute 0.07 K/mm3 (0.00-0.031); Lymphocytes Absolute Auto 1.12 K/mm3 (0.9-3.2); Lymphocytes Percent Auto 16.5 % (18.3-44.2); Mean Corpuscular HGB Conc 31.6 g/dl (32-36); Mean Corpuscular Hemoglobin 26.2 pg (26-34); Mean Platelet Volume 10.8 fl (7.4-10.4); Monocytes Absolute Auto 0.1 K/mm3 (0.1-0.6); Neutrophils Absolute Auto 5.5 K/mm3 (1.3-6.7); Neutrophils Percent Auto 81.2 % (45.5-73.1); Platelet Count Result 210 k/mm3 (150-375); Red Blood Count 3.93 M/mm3 (4.2-5.4); Red Cell Distribution Width 13.1 % (11.5-14.5); White Blood Count 6.8 K/mm3 (4.5-10.0)
[2023-04-04 05:28] LABS: Alanine Aminotransferase 15 U/L (6-35); Albumin Level 3.5 g/dL (3.5-5.1); Alkaline Phosphatase 87 U/L (38-126); Anion Gap 8 mmol/L (8-16); Aspartate Amino Transferase 20 U/L (14-36); Bilirubin,Total 0.4 mg/dL (0.2-1.3); Blood Urea Nitrogen 44 mg/dL (7-17); Calcium 8.3 mg/dL (8.4-10.2); Carbon Dioxide 20 mmol/L (22-30); Chloride 110 mmol/L (98-107); Estimated CRCL calculation 20 ml/min; Estimated Glomerular Filt Rate 21; Glucose 331 mg/dL (65-110); Potassium 4.7 mmol/L (3.4-5.0); Sodium 138 mmol/L (137-145)
[2023-04-04 07:59] LABS: Glucose Point of Care 294 mg/dl (65-105)
[2023-04-04] MEDS: FAMOTIDINE 20 MG TABLET PO (08:24)
[2023-04-04] MEDS: NIFEdipine 30 MG TAB.ER.24 PO (08:24)
[2023-04-04] MEDS: carvediloL 3.125 MG TABLET PO ×2 (08:25→17:02)
[2023-04-04] MEDS: INSULIN ASPART (*BKC) 100 UNITS/ML SUB-Q ×3 (08:25→17:03)
[2023-04-04] MEDS: PARoxetine 20 MG TABLET 40 MG PO (08:25)
[2023-04-04] MEDS: FERROUS SULFATE 325 MG TABLET DR BY MOUTH (08:25)
[2023-04-04 11:53] LABS: Glucose Point of Care 389 mg/dl (65-105)
--- NOTE | 2023-04-04 12:55 | P.PNIM_ITS ---
Progress Note: A&P Assessment and Plan (1) Interstitial edema: Code(s): R60.9 - Edema, unspecified Status: Acute Assessment and Plan: * As evidenced per CXR pt has mild interstitial edema. * BNP 2250. * Lasix IVP received in ER and she has her home dose continued. Continue to monitor respiratory status and function as well as labs and VS. (2) Pneumonia: Code(s): J18.9 - Pneumonia, unspecified organism Status: Acute Assessment and Plan: * Again as evidenced by CXR with bibasilar atelectasis/consolidation worse in the left lower lung. * Continue Azithromycin and Rocephin for abx therapy. * RSV is positive, likely the underlying process for her change in respiratory status. * Not currently requiring supplemental oxygen. * Continue to monitor labs and VS. * Nebulizer treatments of Ipratropium and Albuterol are ordered * Added steroid (3) CKD (chronic kidney disease) stage 4, GFR 15-29 ml/min: Code(s): N18.4 - Chronic kidney disease, stage 4 (severe) Status: Acute Assessment and Plan: * Baseline Creatining ranges from 2.5 which is where she was in ER, to 2.8. * She has had interval increase in Creatinine from 2.5-->2.7 BUT NOW IMPROVING * Pt has history of Fluid overload, however, does not appear to currently have fluid overload. * She has been followed by Nephrology in the past and had Renal US 02/20/22 that was unremarkable. At that time her Creatinine has increased to 3.10. * Avoid Nephrotoxic meds as much as possible. * Pt not on ACEI. * Due to her interstitial edema, she has received Lasix in the past 24 hours. Holding her home dose of 20 mg po for now. Once renal function is no longer trending upward, recommend restarting. * Daily weight * Accurate I&O. (4) RSV bronchitis: Code(s): J20.5 - Acute bronchitis due to respiratory syncytial virus Status: Acute Assessment and Plan: * See problem #2 above. (5) Diabetes: Code(s): E11.9 - Type 2 diabetes mellitus without complications Status: Chronic Assessment and Plan: * Glucose checks AC and HS * Hypoglycemic protocol * Continue Lantus 10 units HS * SSI low dose Novolog initiated. * Hold oral hypoglycemics. * Continue heart healthy diet. * add prandial insulin * increase lantus to 20 units (6) Hyperlipidemia: Code(s): E78.5 - Hyperlipidemia, unspecified Status: Chronic Assessment and Plan: * Continue Lipitor 10 mg HS * Continue heart healthy diet. (7) Anemia: Code(s): D64.9 - Anemia, unspecified Status: Chronic Assessment and Plan: * In the setting of Chronic Kidney Disease. * Monitor H&H, no active signs of bleeding. * Continue Ferrous Sulfate 325 mg daily. (8) Depression: Code(s): F32.A - Depression, unspecified Status: Chronic Assessment and Plan: * Continue Paxil 40 mg po daily. Subjective Date/time seen: 04/04/23 12:55 Interval history: No overnight events. See feels better. Breathing is been ambulating with walker to the bathroom. She delete that Review of Systems Review of Systems: All systems reviewed & are unremarkable except as noted in HPI and below Exam Narrative: GENERAL: ? Elderly female sitting up in bed in no acute distress HEAD: Normocephalic, atraumatic. EYES: PERRLA and EOMI. ENT:? grossly unremarkable NECK: Supple. CHEST:? wheezing and crackles bilaterally, no respiratory distress HEART: Regular rate and rhythm, trace leg edema bila
--- NOTE | 2023-04-04 12:55 | PM.IMPN ---
Progress Note: A&P Assessment and Plan (1) Interstitial edema: Code(s): R60.9 - Edema, unspecified Status: Acute Assessment and Plan: As evidenced per CXR pt has mild interstitial edema. BNP 2250. Lasix IVP received in ER and she has her home dose continued. Continue to monitor respiratory status and function as well as labs and VS. (2) Pneumonia: Code(s): J18.9 - Pneumonia, unspecified organism Status: Acute Assessment and Plan: Again as evidenced by CXR with bibasilar atelectasis/consolidation worse in the left lower lung. Continue Azithromycin and Rocephin for abx therapy. RSV is positive, likely the underlying process for her change in respiratory status. Not currently requiring supplemental oxygen. Continue to monitor labs and VS. Nebulizer treatments of Ipratropium and Albuterol are ordered Added steroid (3) CKD (chronic kidney disease) stage 4, GFR 15-29 ml/min: Code(s): N18.4 - Chronic kidney disease, stage 4 (severe) Status: Acute Assessment and Plan: Baseline Creatining ranges from 2.5 which is where she was in ER, to 2.8. She has had interval increase in Creatinine from 2.5-->2.7 BUT NOW IMPROVING Pt has history of Fluid overload, however, does not appear to currently have fluid overload. She has been followed by Nephrology in the past and had Renal US 02/20/22 that was unremarkable. At that time her Creatinine has increased to 3.10. Avoid Nephrotoxic meds as much as possible. Pt not on ACEI. Due to her interstitial edema, she has received Lasix in the past 24 hours. Holding her home dose of 20 mg po for now. Once renal function is no longer trending upward, recommend restarting. Daily weight Accurate I&O. (4) RSV bronchitis: Code(s): J20.5 - Acute bronchitis due to respiratory syncytial virus Status: Acute Assessment and Plan: See problem #2 above. (5) Diabetes: Code(s): E11.9 - Type 2 diabetes mellitus without complications Status: Chronic Assessment and Plan: Glucose checks AC and HS Hypoglycemic protocol Continue Lantus 10 units HS SSI low dose Novolog initiated. Hold oral hypoglycemics. Continue heart healthy diet. add prandial insulin increase lantus to 20 units (6) Hyperlipidemia: Code(s): E78.5 - Hyperlipidemia, unspecified Status: Chronic Assessment and Plan: Continue Lipitor 10 mg HS Continue heart healthy diet. (7) Anemia: Code(s): D64.9 - Anemia, unspecified Status: Chronic Assessment and Plan: In the setting of Chronic Kidney Disease. Monitor H&H, no active signs of bleeding. Continue Ferrous Sulfate 325 mg daily. (8) Depression: Code(s): F32.A - Depression, unspecified Status: Chronic Assessment and Plan: Continue Paxil 40 mg po daily. Subjective Date/time seen: 04/04/23 12:55 Interval history: No overnight events. See feels better. Breathing is been ambulating with walker to the bathroom. She delete that Review of Systems Review of Systems: All systems reviewed & are unremarkable except as noted in HPI and below Exam Narrative: GENERAL: ? Elderly female sitting up in bed in no acute distress HEAD: Normocephalic, atraumatic. EYES: PERRLA and EOMI. ENT:? grossly unremarkable NECK: Supple. CHEST:? wheezing and crackles bilaterally, no respiratory distress HEART: Regular rate and rhythm, trace leg edema bilaterally ABDOMEN: Soft, nontender, nondistended EXTREMITIES: ? No edema. SKIN: Warm, dry, no rash. NEURO: Alert and oriented x3. PSYCH: Normal mood and affect. Objective Data Vital Signs Vital Signs: Vital Signs - 24 hr 04/03/23 13:48 04/03/23 16:00 04/03/23 17:17 Temperature 98.3 F Pulse Rate 79 76 86 Respiratory Rate 18 Blood Pressure 167/82 H Pulse Oximetry 92 04/03/23 20:00 04/03/23 20:00 04/04/23 00:00 Temperature 98.8 F Pulse Rate 88 89 91 Resp
[2023-04-04 16:43] LABS: Glucose Point of Care 353 mg/dl (65-105)
[2023-04-04] MEDS: INSULIN ASPART (*BKC) 100 UNITS/ML 7 UNITS SUB-Q (17:02)
[2023-04-04 21:00] LABS: Glucose Point of Care 326 mg/dl (65-105)
[2023-04-04] MEDS: INSULIN GLARGINE (*BKC) 100 UNITS/ML 20 UNITS SUB-Q (21:18)
[2023-04-04] MEDS: ATORVASTATIN 10 MG TABLET PO (21:19)
[2023-04-05] MEDS: methylPREDNISolone SOD SUCC 40 MG VIAL IV PUSH (02:49)
[2023-04-05 05:13] LABS: Basophils Percent Auto 0.2 % (0.2-1.2); Hematocrit 32.3 % (37.0-47.0); Hemoglobin 10.1 g/dL (12.0-15.0); Immature Granulocyte Absolute 0.11 K/mm3 (0.00-0.031); Immature Granulocyte Percent A 1.1 % (0-0.5); Lymphocytes Absolute Auto 1.11 K/mm3 (0.9-3.2); Lymphocytes Percent Auto 11.2 % (18.3-44.2); Mean Corpuscular HGB Conc 31.3 g/dl (32-36); Mean Corpuscular Hemoglobin 26.1 pg (26-34); Mean Corpuscular Volume 83.5 fl (80-100); Mean Platelet Volume 11.1 fl (7.4-10.4); Monocytes Absolute Auto 0.2 K/mm3 (0.1-0.6); Monocytes Percent Auto 1.7 % (2.6-8.5); Neutrophils Absolute Auto 8.5 K/mm3 (1.3-6.7); Neutrophils Percent Auto 85.8 % (45.5-73.1); Platelet Count Result 216 k/mm3 (150-375); Red Blood Count 3.87 M/mm3 (4.2-5.4); Red Cell Distribution Width 13.3 % (11.5-14.5); White Blood Count 9.9 K/mm3 (4.5-10.0)
[2023-04-05 05:25] LABS: Alanine Aminotransferase 15 U/L (6-35); Albumin Level 3.4 g/dL (3.5-5.1); Alkaline Phosphatase 81 U/L (38-126); Anion Gap 8 mmol/L (8-16); Aspartate Amino Transferase 22 U/L (14-36); Bilirubin,Total 0.3 mg/dL (0.2-1.3); Blood Urea Nitrogen 50 mg/dL (7-17); Calcium 8.7 mg/dL (8.4-10.2); Carbon Dioxide 20 mmol/L (22-30); Chloride 110 mmol/L (98-107); Estimated CRCL calculation 19 ml/min; Estimated Glomerular Filt Rate 20; Glucose 319 mg/dL (65-110); Magnesium 2.2 mg/dL (1.6-2.3); Potassium 4.9 mmol/L (3.4-5.0); Sodium 138 mmol/L (137-145)
[2023-04-05 06:00] VITALS: BP 159/66; PULSE 76; RESP 16; TEMP 36.4; O2SAT 94
[2023-04-05 08:42] LABS: Glucose Point of Care 284 mg/dl (65-105)
[2023-04-05 08:54] VITALS: PULSE 93
[2023-04-05] MEDS: carvediloL 3.125 MG TABLET PO ×2 (08:54→17:23)
[2023-04-05] MEDS: FAMOTIDINE 20 MG TABLET PO (08:55)
[2023-04-05] MEDS: PARoxetine 20 MG TABLET 40 MG PO (08:55)
[2023-04-05] MEDS: FERROUS SULFATE 325 MG TABLET DR BY MOUTH (08:55)
[2023-04-05] MEDS: INSULIN ASPART (*BKC) 100 UNITS/ML 7 UNITS SUB-Q ×3 (08:55→17:23)
[2023-04-05] MEDS: NIFEdipine 30 MG TAB.ER.24 PO (08:55)
[2023-04-05] MEDS: INSULIN ASPART (*BKC) 100 UNITS/ML SUB-Q ×3 (08:56→17:24)
[2023-04-05 12:01] LABS: Glucose Point of Care 345 mg/dl (65-105)
--- NOTE | 2023-04-05 12:25 | P.PNIM_ITS ---
Progress Note: A&P Assessment and Plan (1) Interstitial edema: Code(s): R60.9 - Edema, unspecified Status: Acute Assessment and Plan: * As evidenced per CXR pt has mild interstitial edema. * BNP 2250. * Lasix IVP received in ER and she has her home dose continued. Continue to monitor respiratory status and function as well as labs and VS. (2) Pneumonia: Code(s): J18.9 - Pneumonia, unspecified organism Status: Acute Assessment and Plan: * Again as evidenced by CXR with bibasilar atelectasis/consolidation worse in the left lower lung. * Continue Azithromycin and Rocephin for abx therapy. * RSV is positive, likely the underlying process for her change in respiratory status. * Not currently requiring supplemental oxygen. * Continue to monitor labs and VS. * Nebulizer treatments of Ipratropium and Albuterol are ordered * Added steroid Solu Medrol IV b.i.d. will change to oral steroid prednisone from a.m. (3) CKD (chronic kidney disease) stage 4, GFR 15-29 ml/min: Code(s): N18.4 - Chronic kidney disease, stage 4 (severe) Status: Acute Assessment and Plan: * Baseline Creatining ranges from 2.5 which is where she was in ER, to 2.8. * She has had interval increase in Creatinine from 2.5-->2.7 BUT NOW IMPROVING * Pt has history of Fluid overload, however, does not appear to currently have fluid overload. * She has been followed by Nephrology in the past and had Renal US 02/20/22 that was unremarkable. At that time her Creatinine has increased to 3.10. * Avoid Nephrotoxic meds as much as possible. * Pt not on ACEI. * Due to her interstitial edema, she has received Lasix in the past 24 hours. Holding her home dose of 20 mg po for now. Once renal function is no longer trending upward, recommend restarting. * Daily weight * Accurate I&O. (4) RSV bronchitis: Code(s): J20.5 - Acute bronchitis due to respiratory syncytial virus Status: Acute Assessment and Plan: * See problem #2 above. (5) Diabetes: Code(s): E11.9 - Type 2 diabetes mellitus without complications Status: Chronic Assessment and Plan: * Glucose checks AC and HS * Hypoglycemic protocol * Continue Lantus 10 units HS * SSI low dose Novolog initiated. * Hold oral hypoglycemics. * Continue heart healthy diet. * add prandial insulin * increase lantus to 20 units had prandial 7 units with meals along with sliding scale insulin (6) Hyperlipidemia: Code(s): E78.5 - Hyperlipidemia, unspecified Status: Chronic Assessment and Plan: * Continue Lipitor 10 mg HS * Continue heart healthy diet. (7) Anemia: Code(s): D64.9 - Anemia, unspecified Status: Chronic Assessment and Plan: * In the setting of Chronic Kidney Disease. * Monitor H&H, no active signs of bleeding. * Continue Ferrous Sulfate 325 mg daily. (8) Depression: Code(s): F32.A - Depression, unspecified Status: Chronic Assessment and Plan: * Continue Paxil 40 mg po daily. Subjective Date/time seen: 04/05/23 12:25 Interval history: No overnight events. She continues to feel better. Still wheezy and coarse. Has some cough. Has chronic cough. Review of Systems Review of Systems: All systems reviewed & are unremarkable except as noted in HPI and below Exam Narrative: GENERAL: ? Elderly female sitting up in bed in no acute distress HEAD: Normocephalic, atraumatic. EYES: PERRLA and EOMI. ENT:? grossly unremarkable
--- NOTE | 2023-04-05 12:25 | PM.IMPN ---
Progress Note: A&P Assessment and Plan (1) Interstitial edema: Code(s): R60.9 - Edema, unspecified Status: Acute Assessment and Plan: As evidenced per CXR pt has mild interstitial edema. BNP 2250. Lasix IVP received in ER and she has her home dose continued. Continue to monitor respiratory status and function as well as labs and VS. (2) Pneumonia: Code(s): J18.9 - Pneumonia, unspecified organism Status: Acute Assessment and Plan: Again as evidenced by CXR with bibasilar atelectasis/consolidation worse in the left lower lung. Continue Azithromycin and Rocephin for abx therapy. RSV is positive, likely the underlying process for her change in respiratory status. Not currently requiring supplemental oxygen. Continue to monitor labs and VS. Nebulizer treatments of Ipratropium and Albuterol are ordered Added steroid Solu Medrol IV b.i.d. will change to oral steroid prednisone from a.m. (3) CKD (chronic kidney disease) stage 4, GFR 15-29 ml/min: Code(s): N18.4 - Chronic kidney disease, stage 4 (severe) Status: Acute Assessment and Plan: Baseline Creatining ranges from 2.5 which is where she was in ER, to 2.8. She has had interval increase in Creatinine from 2.5-->2.7 BUT NOW IMPROVING Pt has history of Fluid overload, however, does not appear to currently have fluid overload. She has been followed by Nephrology in the past and had Renal US 02/20/22 that was unremarkable. At that time her Creatinine has increased to 3.10. Avoid Nephrotoxic meds as much as possible. Pt not on ACEI. Due to her interstitial edema, she has received Lasix in the past 24 hours. Holding her home dose of 20 mg po for now. Once renal function is no longer trending upward, recommend restarting. Daily weight Accurate I&O. (4) RSV bronchitis: Code(s): J20.5 - Acute bronchitis due to respiratory syncytial virus Status: Acute Assessment and Plan: See problem #2 above. (5) Diabetes: Code(s): E11.9 - Type 2 diabetes mellitus without complications Status: Chronic Assessment and Plan: Glucose checks AC and HS Hypoglycemic protocol Continue Lantus 10 units HS SSI low dose Novolog initiated. Hold oral hypoglycemics. Continue heart healthy diet. add prandial insulin increase lantus to 20 units had prandial 7 units with meals along with sliding scale insulin (6) Hyperlipidemia: Code(s): E78.5 - Hyperlipidemia, unspecified Status: Chronic Assessment and Plan: Continue Lipitor 10 mg HS Continue heart healthy diet. (7) Anemia: Code(s): D64.9 - Anemia, unspecified Status: Chronic Assessment and Plan: In the setting of Chronic Kidney Disease. Monitor H&H, no active signs of bleeding. Continue Ferrous Sulfate 325 mg daily. (8) Depression: Code(s): F32.A - Depression, unspecified Status: Chronic Assessment and Plan: Continue Paxil 40 mg po daily. Subjective Date/time seen: 04/05/23 12:25 Interval history: No overnight events. She continues to feel better. Still wheezy and coarse. Has some cough. Has chronic cough. Review of Systems Review of Systems: All systems reviewed & are unremarkable except as noted in HPI and below Exam Narrative: GENERAL: ? Elderly female sitting up in bed in no acute distress HEAD: Normocephalic, atraumatic. EYES: PERRLA and EOMI. ENT:? grossly unremarkable NECK: Supple. CHEST:? wheezing and crackles bilaterally, no respiratory distress HEART: Regular rate and rhythm, trace leg edema bilaterally ABDOMEN: Soft, nontender, nondistended EXTREMITIES: ? No edema. SKIN: Warm, dry, no rash. NEURO: Alert and oriented x3. PSYCH: Normal mood and affect. Objective Data Vital Signs Vital Signs: Vital Signs - 24 hr 04/04/23 14:06 04/04/23 21:32 04/05/23 06:00 Temperature 97.2 F L 98.3 F 97.6 F Pulse Rate 78 77 76 Respiratory Rate 18 1
--- NOTE | 2023-04-05 13:15 | PCOTNOTE ---
Attempted OT evaluation. Patient refuses at this time stating she is too tired and wants to rest. Will follow.
[2023-04-05 14:20] VITALS: BP 152/72; PULSE 82; RESP 18; TEMP 36.5; O2SAT 93
[2023-04-05 17:14] LABS: Glucose Point of Care 212 mg/dl (65-105)
[2023-04-05 17:23] VITALS: PULSE 88
[2023-04-05] MEDS: INSULIN GLARGINE (*BKC) 100 UNITS/ML 20 UNITS SUB-Q (20:41)
[2023-04-05] MEDS: ATORVASTATIN 10 MG TABLET PO (20:41)
[2023-04-05 20:46] VITALS: BP 157/72; PULSE 76; RESP 20; TEMP 36.5; O2SAT 96
[2023-04-05 21:15] LABS: Glucose Point of Care 147 mg/dl (65-105)
[2023-04-06 05:44] VITALS: BP 156/85; PULSE 78; RESP 14; TEMP 36.5; O2SAT 97
[2023-04-06 06:16] LABS: Basophils Absolute Auto 0.1 K/mm3 (0.0-0.1); Basophils Percent Auto 0.4 % (0.2-1.2); Eosinophils Absolute Auto 0.1 K/mm3 (0-0.3); Eosinophils Percent Auto 0.4 % (0-4.4); Hematocrit 32.3 % (37.0-47.0); Hemoglobin 9.9 g/dL (12.0-15.0); Immature Granulocyte Absolute 0.19 K/mm3 (0.00-0.031); Immature Granulocyte Percent A 1.7 % (0-0.5); Lymphocytes Absolute Auto 3.95 K/mm3 (0.9-3.2); Lymphocytes Percent Auto 34.8 % (18.3-44.2); Mean Corpuscular HGB Conc 30.7 g/dl (32-36); Mean Corpuscular Hemoglobin 25.6 pg (26-34); Mean Corpuscular Volume 83.7 fl (80-100); Mean Platelet Volume 10.9 fl (7.4-10.4); Monocytes Absolute Auto 0.8 K/mm3 (0.1-0.6); Monocytes Percent Auto 6.8 % (2.6-8.5); Neutrophils Absolute Auto 6.3 K/mm3 (1.3-6.7); Neutrophils Percent Auto 55.9 % (45.5-73.1); Platelet Count Result 244 k/mm3 (150-375); Red Blood Count 3.86 M/mm3 (4.2-5.4); Red Cell Distribution Width 13.4 % (11.5-14.5); White Blood Count 11.3 K/mm3 (4.5-10.0)
[2023-04-06 06:22] LABS: Alanine Aminotransferase 19 U/L (6-35); Albumin Level 3.3 g/dL (3.5-5.1); Alkaline Phosphatase 75 U/L (38-126); Anion Gap 7 mmol/L (8-16); Aspartate Amino Transferase 26 U/L (14-36); Bilirubin,Total 0.3 mg/dL (0.2-1.3); Blood Urea Nitrogen 59 mg/dL (7-17); Calcium 8.6 mg/dL (8.4-10.2); Carbon Dioxide 24 mmol/L (22-30); Chloride 110 mmol/L (98-107); Estimated CRCL calculation 16 ml/min; Estimated Glomerular Filt Rate 17; Glucose 122 mg/dL (65-110); Magnesium 2.2 mg/dL (1.6-2.3); Sodium 141 mmol/L (137-145)
[2023-04-06 08:06] LABS: Glucose Point of Care 110 mg/dl (65-105)
[2023-04-06] MEDS: NIFEdipine 30 MG TAB.ER.24 PO (08:51)
[2023-04-06] MEDS: FAMOTIDINE 20 MG TABLET PO (08:51)
[2023-04-06] MEDS: predniSONE 20 MG TABLET 40 MG PO (08:51)
[2023-04-06] MEDS: PARoxetine 20 MG TABLET 40 MG PO (08:51)
[2023-04-06] MEDS: FERROUS SULFATE 325 MG TABLET DR BY MOUTH (08:51)
[2023-04-06 08:52] VITALS: PULSE 80
[2023-04-06] MEDS: carvediloL 3.125 MG TABLET PO ×2 (08:52→17:11)
[2023-04-06] MEDS: INSULIN ASPART (*BKC) 100 UNITS/ML 7 UNITS SUB-Q ×2 (08:52→17:10)
[2023-04-06 12:29] LABS: Glucose Point of Care 100 mg/dl (65-105)
[2023-04-06 14:20] VITALS: BP 171/72; PULSE 72; RESP 17; TEMP 36.6; O2SAT 97
--- NOTE | 2023-04-06 15:23 | PM.DS ---
DS: Admitting Diagnosis Discharge Date 04/06/2023 Admitting Diagnosis Shortness of breath DS: Discharge Diagnosis Discharge Diagnosis (1) Interstitial edema: Code(s): R60.9 - Edema, unspecified Status: Acute (2) Pneumonia: Code(s): J18.9 - Pneumonia, unspecified organism Status: Acute (3) CKD (chronic kidney disease) stage 4, GFR 15-29 ml/min: Code(s): N18.4 - Chronic kidney disease, stage 4 (severe) Status: Acute (4) RSV bronchitis: Code(s): J20.5 - Acute bronchitis due to respiratory syncytial virus Status: Acute (5) Diabetes: Code(s): E11.9 - Type 2 diabetes mellitus without complications Status: Chronic (6) Hyperlipidemia: Code(s): E78.5 - Hyperlipidemia, unspecified Status: Chronic (7) Anemia: Code(s): D64.9 - Anemia, unspecified Status: Chronic (8) Depression: Code(s): F32.A - Depression, unspecified Status: Chronic DS: Summary Hospital Course Hospital Course: This 82-year-old female presented with shortness of breath. For the past couple of days. Was wheezy no chest pain outpatient chest x-ray showed pneumonia was sent for evaluation no hypoxia noted. Coarse breath sound with expiratory wheezing. Labs were unremarkable or at baseline on admission she was evaluated with chest x-ray which showed interstitial edema or pneumonia. Breathing treatment was started with IV Lasix. See tested positive for RSV. Treated with antibiotics IV as wall given the finding of consultation. She was eventually added on steroid due to persistent wheezing which improved with it along with bronchodilators. She will go on prednisone for 5 more days at discharge. She will continue on albuterol/Atrovent nebulizer treatment. Her creatinine was monitored for the hospital stay and remained fluctuant and stable as compared to her previous creatinine levels. Time Spent with Patient Time attestation: Total time spent providing and/or coordinating discharge services: 35 minutes Exam Narrative: GENERAL: ? Elderly female sitting up in bed in no acute distress HEAD: Normocephalic, atraumatic. EYES: PERRLA and EOMI. ENT:? grossly unremarkable NECK: Supple. CHEST:? wheezing and crackles bilaterally, no respiratory distress HEART: Regular rate and rhythm, trace leg edema bilaterally ABDOMEN: Soft, nontender, nondistended EXTREMITIES: ? No edema. SKIN: Warm, dry, no rash. NEURO: Alert and oriented x3. PSYCH: Normal mood and affect. DS: Data Data Completed and Pending Labs on day of discharge: Labs from last 24 hours 04/06/23 04/06/23 04/06/23 12:21 07:54 05:33 WBC 11.3 H RBC 3.86 L Hgb 9.9 L Hct 32.3 L MCV 83.7 MCH 25.6 L MCHC 30.7 L RDW 13.4 Plt Count 244 MPV 10.9 H Immature Gran % (Auto) 1.7 H Neut % (Auto) 55.9 Lymph % (Auto) 34.8 Winkler % (Auto) 6.8 Eos % (Auto) 0.4 Baso % (Auto) 0.4 Lymph # (Auto) 3.95 H Winkler # (Auto) 0.8 H Eos # (Auto) 0.1 Baso # (Auto) 0.1 Abs Immat Gran (auto) 0.19 H Absolute Neuts (auto) 6.3 Absolute Nucleated RBC 0.0 Nucleated RBC % 0.0 Sodium 141 Potassium 4.0 Chloride 110 H Carbon Dioxide 24 Anion Gap 7 L BUN 59 H Creatinine 2.70 H Estim Creat Clear Calc 16 Estimated GFR 17 L Glucose 122 H POC Capillary Glucose 100 110 H Calcium 8.6 Magnesium 2.2 Total Bilirubin 0.3 AST 26 ALT 19 Alkaline Phosphatase 75 Total Protein 6.0 L Albumin 3.3 L 04/05/23 04/05/23 20:41 17:12 WBC RBC Hgb Hct MCV MCH MCHC RDW Plt Count MPV Immature Gran % (Auto) Neut % (Auto) Lymph % (Auto) Winkler % (Auto) Eos % (Auto) Baso % (Auto) Lymph # (Auto) Winkler # (Auto) Eos # (Auto) Baso # (Auto) Abs Immat Gran (auto) Absolute Neuts (auto) Absolute Nucleated RBC Nucleated RBC % Sodium Potassium Chloride Car
[2023-04-06 16:53] LABS: Glucose Point of Care 220 mg/dl (65-105)
[2023-04-06] MEDS: INSULIN ASPART (*BKC) 100 UNITS/ML SUB-Q (17:10)
[2023-04-06 17:11] VITALS: PULSE 82
[2023-04-06 20:00] VITALS: PULSE 82; RESP 17; O2SAT 97
[2023-04-06] MEDS: INSULIN GLARGINE (*BKC) 100 UNITS/ML 20 UNITS SUB-Q (21:02)
[2023-04-06] MEDS: CEFDINIR 300 MG CAPSULE PO (21:03)
[2023-04-06] MEDS: ATORVASTATIN 10 MG TABLET PO (21:04)
[2023-04-06 21:12] LABS: Glucose Point of Care 240 mg/dl (65-105)
--- NOTE | 2023-04-06 22:29 | PC.NURSE ---
Pt transported to [facility] via [facility].
== END 2023-04-06 21:55 | DRG 202 ==
LOC: ANHED 19:47 → ANH2MED 23:46
PROVIDERS: Nurse Practitioner Adult Health; Admitting Provider Student in an Organized Health Care Education/Training Program; Emergency Provider Emergency Medicine; PCP Internal Medicine; Visit Provider Internal Medicine
DX: J20.5 Acute bronchitis due to respiratory syncytial virus (principal); J18.9 Pneumonia, unspecified organism; N18.4 Chronic kidney disease, stage 4 (severe); E11.22 Type 2 diabetes mellitus with diabetic chronic kidney disease; E78.5 Hyperlipidemia, unspecified; F32.A Depression, unspecified; K21.9 Gastro-esophageal reflux disease without esophagitis; I73.9 Peripheral vascular disease, unspecified; I12.9 Hypertensive chronic kidney disease with stage 1 through stage 4 chronic kidney disease, or unspecified chronic kidney disease; D63.1 Anemia in chronic kidney disease; Z96.643 Presence of artificial hip joint, bilateral; Z90.49 Acquired absence of other specified parts of digestive tract; Z20.822 Contact with and (suspected) exposure to COVID-19
CPT/HCPCS: 36415; 71045; 80048; 80053; 81001; 82948; 83036; 83690; 83735; 83880; 84484; 85025; 87637; 93005; 94640; 96361; 96365; 96375; 97161; 97165; 99285; A9270; G0378; J0456; J0696; J1815; J1940; J2920; J7030; J7060; J7512

== ENCOUNTER 2024-01-16 16:19 | Inpatient (IN) | payer MEDICARE, MEDICAID, SELFPAY ==
[2024-01-16] VITALS (10 sets, daily range): BP systolic 145–167; BP diastolic 60–87; PULSE 76–82; RESP 17–22; TEMP 36.2–37.1; O2SAT 94–97; BMI 32.9
--- NOTE | ~2024-01-16 | XR_ITS ---
XR chest 2V Ordering provider: Tasha Norton APRN History: 83 years Female with . follow up shortness of breath . Comparison: January 16, 2024 FINDINGS: MEDIASTINUM: The cardiac silhouette is slightly enlarged. LUNGS: No pneumothorax. Left basilar atelectasis versus pneumonia with minimal effusion. OTHER: No free air under the diaphragm. IMPRESSION: Left basilar atelectasis versus pneumonia with pleural effusion. Reviewed, dictated and finalized at location A.
--- NOTE | ~2024-01-16 | XR_ITS ---
XR chest 1V portable Ordering provider: Mya Pruitt MD History: 83 years Female with . SOB . Comparison: April 01, 2023 FINDINGS: MEDIASTINUM: The cardiac silhouette is not enlarged. LUNGS: No effusions or pneumothorax. Opacification in the left lower lobe area suggestive of atelect asis versus pneumonia. OTHER: No free air under the diaphragm. Degenerative changes of the spine. IMPRESSION: Left lower lobe atelectasis versus pneumonia. Reviewed, dictated and finalized at location A.
--- NOTE | ~2024-01-16 | XR_ITS ---
MODIFIED ESOPHAGRAM HISTORY: Coughing TECHNIQUE: Modified barium esophagram was performed on 01/19/2024. I administered fluoroscopy and perf ormed the exam with speech pathologist. Patient was seated for lateral fluoroscopic imaging for nakita stion of thin liquids, pudding, solids and quantified amounts, followed by thin liquids in uncontroll ed amounts. This was recorded on tape. A single fluoroscopic spot image was also recorded. The DAP fo r this procedure was 1.426 Gycm2. The amount of fluoroscopy time used during this procedure was 1.2 m inutes. FINDINGS: Oral stage: Adequate function. Pharyngeal stage: Adequate function. Cervical/esophageal stage: Adequate function. IMPRESSION: Patient tolerated regular consistency oral feedings in the upright position. Please angela elate with speech pathologist findings and specific feeding recommendations. Reviewed, dictated and finalized at location A. IMPRESSION: Patient tolerated regular consistency oral feedings in the upright position. Please correlate with speech pathologist findings and specific feedi ng recommendations.
--- NOTE | 2024-01-16 16:35 | ECG_ITS ---
Test Date: 2024-01-16 17:48:10 Measurements Intervals [place] Rate: 75 P: 58 KS: 187 QRS: -9 QRSD: 87 T: 124 QT: 383 QTc: 429 Interpretive Statements SINUS RHYTHM ST-T WAVE ABNORMALITY IN HIGH LATERAL LEADS- CONSIDER ISCHEMIA BASELINE ARTIFACT- I, II, III, AVR, AVL, AVF ABNORMAL ECG No previous ECG available for comparison Electronically Signed On 01-16-2024 20:01:40 CDT by Enrrique Rios D.O.
--- NOTE | 2024-01-16 16:37 | ED.SOB ---
HPI - SOB/Dyspnea General Chief Complaint: Shortness of Breath/Dyspnea Stated Complaint: dyspnea Time Seen by Provider: 01/16/24 16:33 Source: patient Mode of arrival: EMS Limitations: dementia History of Present Illness HPI Narrative: 83 YEARS OLD WHITE FEMALE CAME FROM HOME BY AMBULANCE BECAUSE OF SHORTNESS OF BREATH, PRODUCTIVE COUGH, LACK OF APPETITE ON THE LAST FEW DAYS. PATIENT IS AWAKE, ORIENTED TO HER NAME ONLY, DENYING ANY SYMPTOMS Related Data Home Medications Medication Instructions Recorded Confirmed atorvastatin 10 mg tablet 10 mg PO HS 02/20/22 01/16/24 calcium carbonate 500 mg-vitamin 1 tablet PO DAILY 02/20/22 01/16/24 D3 5 mcg (200 unit) tablet (Os-Naveen 500 + D3) carvedilol 3.125 mg tablet 3.125 mg PO BID 02/20/22 01/16/24 cholecalciferol (vitamin D3) 50 50 mcg PO WEEKLY 02/20/22 01/16/24 mcg (2,000 unit) capsule (Vitamin D3) famotidine 20 mg tablet 40 mg PO DAILY 02/20/22 01/16/24 ferrous sulfate 325 mg (65 mg 325 mg PO DAILY 02/20/22 01/16/24 iron) capsule,extended release furosemide 20 mg tablet 20 mg PO DAILY 02/20/22 01/16/24 insulin glargine 100 unit/mL (3 10 unit subcut HS 02/20/22 01/16/24 mL) subcutaneous pen (Lantus Solostar U-100 Insulin) paroxetine HCl 40 mg tablet 40 mg PO DAILY 02/20/22 01/16/24 linagliptin 5 mg tablet (Tradjenta) 5 mg PO DAILY 04/02/23 01/16/24 calcitriol 0.25 mcg capsule 0.25 mcg PO DAILY 01/16/24 01/16/24 insulin lispro 100 unit/mL 1 sliding scale dose subcut 01/16/24 01/16/24 subcutaneous pen USEASDIRECTD ipratropium 0.5 mg-albuterol 3 mg 3 ml inhalation Q4H PRN Shortness 01/16/24 01/16/24 (2.5 mg base)/3 mL nebulization Of Breath Or Wheezing soln nifedipine 90 mg tablet,extended 90 mg PO DAILY 01/16/24 01/16/24 release 24 hr Allergies Allergy/AdvReac Type Severity Reaction Status Date / Time Penicillins Allergy Rash Verified 04/06/23 09:16 Review of Systems Review of Systems: ROS unobtainable: Yes unobtainable due to medical condition and unobtainable due to mental status PMFSH Past Medical History Medical History Anemia Anxiety Chronic GERD CRF (chronic renal failure) Depression Diabetes Diabetic acidosis, type II History of gastroesophageal reflux (GERD) History of hypertension Hyperlipidemia PVD (peripheral vascular disease) Surgical History Surgical History H/O total hip arthroplasty uzair History of tonsillectomy Hx of cholecystectomy Hx of colectomy Family History Family History Mother Acute myocardial infarction Sibling Hypertension Diabetes mellitus Depression Social History Social History Social History: The patient has 4 children. She is . Her daughter Cydney mukherjee is the durable power certified emergency vehicle technician for healthcare. The patient was a homemaker. She is lifelong nonsmoker. She does not use any alcohol marijuana or illicit drugs. Code status full code Smoking status: Never smoker Alcohol intake: never Substance use: never Substance use type: does not use Do You Feel Safe in your Home?: Yes Lack of Transportation: No Lack of Food: Never True Current Housing: I Have Housing Concerned About Future Housing: No Difficulty Paying Gas/Electric Bills: No Difficulty Paying for Meds: No Currently Unemployed: No Education: Grade School Difficulty w/ Childcare or Family Care: No Spiritual care concerns: No Exam Narrative: GENERAL APPEARANCE: WELL-DEVELOPED, WELL-NOURISHED SKIN: NORMAL COLOR HEAD: NORMOCEPHALIC, NONTRAUMATIC EYES: CLEAR CONJUNCTIVA ENT: OROPHARYNX NORMAL, EARS NORMAL, NOSE NORMAL NECK: SUPPLE, NONTENDER CHEST AND RESPIRATORY: AIRWAY PATENT, DIMINUTION OF AIR ENTRY BILATERALLY, FEW SCATTERED RHONCHI AND RALES HEART: REGULAR RAT
[2024-01-16 16:51] LABS: Alveolar/Arterial O2 Gradient 172.1 mmHg; Base Excess ABG -0.6 mEq/l (+/-2.0); Device NASAL CANNULA; Fractional Inspired Oxygen 40 %; HCO3 ABG 24.4 mEq/l (22.0-26.0); Modified Allen's Test Pass; Oxygen Content ABG 14.3 %vol (16.0-22.0); Oxygen Saturation ABG 92.6 % (95.0-100.0); Oxyhemoglobin 92.5 % THb (90.0-100.0); PCO2 ABG 41.6 mmHg (35.0-45.0); PO2 ABG 65.3 mmHg (80.0-100.0); PO2 FiO2 Ratio Arterial Blood 1.63 %; Site Drawn LEFT RADIAL; pH ABG 7.386 (7.350-7.450)
[2024-01-16] MEDS: IPRATROPIUM 0.5 MG/ALBUTEROL SULFATE 2.5 MG AMPUL.NEB 3 ML INHALATION ×2 (16:55→21:23)
[2024-01-16 18:27] LABS: Basophils Percent Auto 0.4 % (0.2-1.2); Eosinophils Absolute Auto 0.2 K/mm3 (0-0.3); Eosinophils Percent Auto 2.2 % (0-4.4); Hematocrit 31.1 % (37.0-47.0); Immature Granulocyte Absolute 0.07 K/mm3 (0.00-0.031); Immature Granulocyte Percent A 0.7 % (0-0.5); Lymphocytes Absolute Auto 1.07 K/mm3 (0.9-3.2); Lymphocytes Percent Auto 10.4 % (18.3-44.2); Mean Corpuscular HGB Conc 32.2 g/dl (32-36); Mean Corpuscular Hemoglobin 26.7 pg (26-34); Mean Corpuscular Volume 83.2 fl (80-100); Mean Platelet Volume 10.2 fl (7.4-10.4); Monocytes Absolute Auto 0.8 K/mm3 (0.1-0.6); Monocytes Percent Auto 7.5 % (2.6-8.5); Neutrophils Absolute Auto 8.1 K/mm3 (1.3-6.7); Neutrophils Percent Auto 78.8 % (45.5-73.1); Platelet Count Result 253 k/mm3 (150-375); Red Blood Count 3.74 M/mm3 (4.2-5.4); Red Cell Distribution Width 12.9 % (11.5-14.5); White Blood Count 10.3 K/mm3 (4.5-10.0)
[2024-01-16 18:37] LABS: Alanine Aminotransferase 21 U/L (6-35); Albumin Level 3.8 g/dL (3.5-5.1); Alkaline Phosphatase 78 U/L (38-126); Anion Gap 15 mmol/L (4-12); Aspartate Amino Transferase 29 U/L (14-36); Bilirubin,Total 0.4 mg/dL (0.2-1.3); Blood Urea Nitrogen 77 mg/dL (7-17); Calcium 9.1 mg/dL (8.4-10.2); Carbon Dioxide 22 mmol/L (22-30); Chloride 103 mmol/L (98-107); Estimated CRCL calculation 11 ml/min; Estimated Glomerular Filt Rate 11; Glucose 141 mg/dL (65-110); Potassium 3.8 mmol/L (3.4-5.0); Sodium 140 mmol/L (137-145)
[2024-01-16 18:45] LABS: NT Pro B Type Natriuretic Pept 6210 pg/mL (19.9-100)
[2024-01-16 18:46] LABS: INR 1.2; Prothrombin Time 15.3 Seconds (11.1-14.7)
[2024-01-16 18:47] LABS: Partial Thromboplastin Time 36.2 Seconds (22.3-36.8)
--- NOTE | 2024-01-16 19:21 | PC.NURSE ---
Multiple attempts by multiple people have been made to obtain second set of blood cultures.
[2024-01-16 20:51] LABS: Troponin I 0.026 ng/mL (0.000-0.034)
--- NOTE | 2024-01-16 21:04 | PC.NURSE ---
This patient, Sierra Danielle, was admitted to 3 [facility] Surg Room 307-02. Patient/family oriented to hospital policies and general routines including ID bracelet, bed and alarms, visiting hours, pain management, procedures, bathroom and other care routines, personal items, smoking policy, room service/diet, and visiting hours. Information on how to activate the Rapid Response Team has been discussed. Patient/Family are encouraged to report perceived risks to care and to ask questions if they do not understand what they are told or what they should do.
[2024-01-16 21:36] LABS: Glucose Point of Care 225 mg/dl (65-105)
[2024-01-16] MEDS: levoFLOXacin 750 MG/D5W 150 ML 750 MG/150 ML BAG 100 MG IVPB (22:26)
[2024-01-16] MEDS: INSULIN ASPART (*BKC) 100 UNITS/ML SUB-Q (22:27)
[2024-01-16] MEDS: SODIUM CHLORIDE 0.9% IV 1,000 ML 125 ML IV CONT (22:27)
--- NOTE | 2024-01-16 23:45 | PM.IMHP ---
H&P: HPI History of Present Illness Date/Time: 01/16/24 23:45 Chief Complaint: Cough, hypoxia Narrative: 83-year-old female with past medical history of dementia, CHF, diabetes, chronic kidney disease her aspiration pneumonia who presents the ER from [facility] due to cough and hypoxia. Patient's oxygen saturations on room air were 83%. EMS place patient on 6 L nasal cannula oxygen saturations came up to 93%. After treatment in the ER with nebulizers and Levaquin the patient's oxygen was able to be weaned down to 2 L nasal cannula. Patient is only alert orient x1 at the time of my evaluation and cannot provide any meaningful history. The patient is noted to have a significant cough at bedside. When she does cough some of her upper airway noise does clear but she still has significant crackles left greater than right. Patient has been afebrile Review of Systems Review of Systems: ROS unobtainable: Yes unobtainable due to mental status PMFSH Past Medical History Medical History (Updated 01/18/24 @ 02:37 by Yadira Watson DO) Anemia Anxiety Chronic GERD CKD (chronic kidney disease) stage 4, GFR 15-29 ml/min Baseline creatinine 2.2-2.7 Dementia Depression Diabetes History of gastroesophageal reflux (GERD) History of hypertension Hyperlipidemia PVD (peripheral vascular disease) Surgical History Surgical History H/O total hip arthroplasty uzair History of tonsillectomy Hx of cholecystectomy Hx of colectomy Family History Family History Mother Acute myocardial infarction Sibling Hypertension Diabetes mellitus Depression Social History Social History (Updated 01/18/24 @ 02:33 by Yadira Watson DO) Social History: The patient has 4 children. She is . The patient was a homemaker. She is lifelong nonsmoker. She does not use any alcohol marijuana or illicit drugs. She is living at [facility]. Code status: Full code Healthcare power of civil rights attorney: Cydney Espinoza Smoking status: Never smoker Alcohol intake: never Substance use: never Substance use type: does not use Do You Feel Safe in your Home?: Yes Lack of Transportation: No Lack of Food: Never True Current Housing: I Have Housing Concerned About Future Housing: No Difficulty Paying Gas/Electric Bills: No Difficulty Paying for Meds: No Currently Unemployed: No Education: Grade School Difficulty w/ Childcare or Family Care: No Spiritual care concerns: No Meds Home Medications and Allergies Home Medications Medication Instructions Recorded Confirmed Type atorvastatin 10 mg tablet 10 mg PO HS 02/20/22 01/16/24 History calcium carbonate 500 mg-vitamin 1 tablet PO DAILY 02/20/22 01/16/24 History D3 5 mcg (200 unit) tablet (Os-Naveen 500 + D3) carvedilol 3.125 mg tablet 3.125 mg PO BID 02/20/22 01/16/24 History cholecalciferol (vitamin D3) 50 50 mcg PO WEEKLY 02/20/22 01/16/24 History mcg (2,000 unit) capsule (Vitamin D3) famotidine 20 mg tablet 40 mg PO DAILY 02/20/22 01/16/24 History ferrous sulfate 325 mg (65 mg 325 mg PO DAILY 02/20/22 01/16/24 History iron) capsule,extended release furosemide 20 mg tablet 20 mg PO DAILY 02/20/22 01/16/24 History insulin glargine 100 unit/mL (3 10 unit subcut HS 02/20/22 01/16/24 History mL) subcutaneous pen (Lantus Solostar U-100 Insulin) paroxetine HCl 40 mg tablet 40 mg PO DAILY 02/20/22 01/16/24 History linagliptin 5 mg tablet (Tradjenta) 5 mg PO DAILY 04/02/23 01/16/24 History calcitriol 0.25 mcg capsule 0.25 mcg PO DAILY 01/16/24 01/16/24 History insulin lispro 100 unit/mL 1 sliding scale dose subcut 01/16/24 01/16/24 History subcutaneous pen USEASDIRECTD ipratropium 0.5 mg-albuterol 3 mg 3 ml inhalation Q4H PRN Shortness 01/16/24 01/16/24 History (2.5 mg base)/3 mL nebulization Of Yanelis
[2024-01-17] VITALS (18 sets, daily range): BP systolic 127–149; BP diastolic 46–73; PULSE 73–96; RESP 18–24; TEMP 36.3–37.4; O2SAT 93–96
[2024-01-17] MEDS: IPRATROPIUM 0.5 MG/ALBUTEROL SULFATE 2.5 MG AMPUL.NEB 3 ML INHALATION ×4 (02:41→20:00)
[2024-01-17 05:31] LABS: Hemoglobin A1C 7.5 % (<5.7)
[2024-01-17 07:28] LABS: Glucose Point of Care 137 mg/dl (65-105)
[2024-01-17] MEDS: CALCIUM/VITAMIN D 500 MG/5 MCG (200 I.U.) TABLET PO (09:07)
[2024-01-17] MEDS: FAMOTIDINE 20 MG TABLET 40 MG PO (09:07)
[2024-01-17] MEDS: NIFEdipine 30 MG TAB.ER.24 90 MG PO (09:07)
[2024-01-17] MEDS: carvediloL 3.125 MG TABLET PO ×2 (09:08→20:47)
[2024-01-17] MEDS: PARoxetine 20 MG TABLET 40 MG PO (09:08)
[2024-01-17] MEDS: calcitrioL 0.25 MCG CAPSULE PO (09:09)
[2024-01-17 10:35] LABS: Basophils Percent Auto 0.3 % (0.2-1.2); Eosinophils Absolute Auto 0.1 K/mm3 (0-0.3); Eosinophils Percent Auto 0.9 % (0-4.4); Hematocrit 28.3 % (37.0-47.0); Hemoglobin 8.9 g/dL (12.0-15.0); Immature Granulocyte Absolute 0.08 K/mm3 (0.00-0.031); Immature Granulocyte Percent A 1.1 % (0-0.5); Lymphocytes Absolute Auto 0.75 K/mm3 (0.9-3.2); Lymphocytes Percent Auto 10.7 % (18.3-44.2); Mean Corpuscular HGB Conc 31.4 g/dl (32-36); Mean Corpuscular Hemoglobin 26.4 pg (26-34); Mean Platelet Volume 9.7 fl (7.4-10.4); Monocytes Absolute Auto 0.4 K/mm3 (0.1-0.6); Monocytes Percent Auto 6.3 % (2.6-8.5); Neutrophils Absolute Auto 5.6 K/mm3 (1.3-6.7); Neutrophils Percent Auto 80.7 % (45.5-73.1); Platelet Count Result 221 k/mm3 (150-375); Red Blood Count 3.37 M/mm3 (4.2-5.4); Red Cell Distribution Width 13.1 % (11.5-14.5)
[2024-01-17 10:44] LABS: Anion Gap 12 mmol/L (4-12); Blood Urea Nitrogen 72 mg/dL (7-17); Calcium 8.2 mg/dL (8.4-10.2); Carbon Dioxide 22 mmol/L (22-30); Chloride 105 mmol/L (98-107); Estimated CRCL calculation 12 ml/min; Estimated Glomerular Filt Rate 13; Glucose 245 mg/dL (65-110); Potassium 3.9 mmol/L (3.4-5.0); Sodium 139 mmol/L (137-145)
[2024-01-17] MEDS: polyethylene glycoL 3350 17 GM POWD.PACK PO (11:11)
[2024-01-17] MEDS: metroNIDAZOLE 500 MG/ISO 100ML 500 MG/100 ML BAG 100 MG IVPB ×2 (11:12→17:12)
[2024-01-17 11:50] LABS: Glucose Point of Care 223 mg/dl (65-105)
[2024-01-17] MEDS: FERROUS SULFATE 325 MG TABLET DR PO (12:16)
[2024-01-17] MEDS: INSULIN ASPART (*BKC) 100 UNITS/ML SUB-Q (12:17)
--- NOTE | 2024-01-17 14:39 | PM.IMPN ---
Progress Note: A&P Assessment and Plan (1) EVANGELISTA (acute kidney injury): Code(s): N17.9 - Acute kidney failure, unspecified Status: Acute Assessment and Plan: - 01/16/24: BUN 77, creatinine 3.90, & GFR 11 - 01/17/24: BUN 72, creatinine 3.50, & GFR 13 - monitor labs and I&O - NS@ 75ml/hr. Patient is NPO until evaluated with a modified barium swallow. (2) Pneumonia: Code(s): J18.9 - Pneumonia, unspecified organism Status: Acute Assessment and Plan: -IV Levofloxacin 500 mg IVPB q 48 hours. -IV Metronidazole 500 mg IVPB q 8 hours. -Duoneb q 6. - 02@2LNC - Patient will need a modified barium swallow recommended by speech therapy. NPO for now. (3) CKD (chronic kidney disease) stage 4, GFR 15-29 ml/min: Code(s): N18.4 - Chronic kidney disease, stage 4 (severe) Status: Acute Assessment and Plan: - 01/16/24: BUN 77, creatinine 3.90, & GFR 11 - 01/17/24: BUN 72, creatinine 3.50, & GFR 13 (4) Diabetes: Code(s): E11.9 - Type 2 diabetes mellitus without complications Status: Chronic Assessment and Plan: - HgbA1C 7.5%. - Receiving long acting Glargine and SSI. (5) Heel blister: Code(s): S90.829A - Blister (nonthermal), unspecified foot, initial encounter Status: Acute Assessment and Plan: - Wound care consult. - Float heels. Subjective Date/time seen: 01/17/24 14:39 Interval history: Patient reports shortness of breath with activity and at times at rest. Bowel movement small today. Denies chest pain, palpitations, headache, dizziness, nausea, or vomiting. Review of Systems Review of Systems: All systems reviewed & are unremarkable except as noted in HPI and below Exam Const: General: comfortable and no acute distress Neck: Neck: supple Resp: Other: rales and rhonchi scattered bilaterally. Cardio: Rate: regular rate Rhythm: regular rhythm GI: GI Palp: Yes Soft to palpation Auscultation: normal bowel sounds Skin: Other: left inner heel 2 inch round blister filled raised area. right heel pink. Neuro: Speech: normal speech Psych: Affect: normal affect Other: A&Ox1. Objective Data Vital Signs Vital Signs: Vital Signs - 24 hr 01/16/24 16:20 01/16/24 16:27 01/16/24 16:55 Temperature 98.7 F Pulse Rate 76 76 Respiratory Rate 17 20 Blood Pressure 163/60 H Pulse Oximetry 97 97 Oxygen Delivery Nasal Cannula Nasal Cannula Oxygen Flow Rate 6 6 Fraction of Inspired Oxygen 01/16/24 16:55 01/16/24 16:55 01/16/24 17:01 Temperature Pulse Rate 77 Respiratory Rate 20 Blood Pressure Pulse Oximetry 97 97 Oxygen Delivery Nasal Cannula Nasal Cannula Oxygen Flow Rate 5 5 Fraction of Inspired Oxygen 40 40 01/16/24 18:57 01/16/24 19:57 01/16/24 20:00 Temperature 98.8 F 98.8 F 97.2 F L Pulse Rate 77 82 Respiratory Rate 19 22 H Blood Pressure 145/87 H 167/71 H Pulse Oximetry 96 94 Oxygen Delivery Oxygen Flow Rate Fraction of Inspired Oxygen 01/16/24 21:24 01/16/24 21:25 01/16/24 21:35 Temperature Pulse Rate 79 78 Respiratory Rate 20 20 Blood Pressure Pulse Oximetry 94 Oxygen Delivery Nasal Cannula Oxygen Flow Rate 2 Fraction of Inspired Oxygen 01/17/24 00:00 01/17/24 02:42 01/17/24 02:54 Temperature 97.5 F L Pulse Rate 73 80 82 Respiratory Rate 22 H 20 20 Blood Pressure 147/54 H Pulse Oximetry 94 Oxygen Delivery Oxygen Flow Rate Fraction of Inspired Oxygen 01/17/24 00:00 01/17/24 04:00 01/17/24 04:00 Temperature 99.3 F Pulse Rate 81 83 83 Respiratory Rate 24 H Blood Pressure 146/63 H Pulse Oximetry 93 Oxygen Delivery Oxygen Flow Rate Fraction of Inspired Oxygen 01/17/24 07:00 01/17/24 07:00 01/17/24 07:10 Temperature Pulse Rate 78 78 81 Respiratory Rate 18 18 18 Blood Pressure Pulse Oximetry 93 Oxygen Delivery Nasal Cannula Oxygen Flow Rate 2 Fraction
[2024-01-17] MEDS: SODIUM CHLORIDE 0.9% IV 1,000 ML 75 ML IV CONT (15:45)
[2024-01-17 16:28] LABS: Glucose Point of Care 141 mg/dl (65-105)
--- NOTE | 2024-01-17 19:00 | PC.NURSE ---
I have personally reviewed all documentation and med administration performed by Claudia Alvarenga LPN
[2024-01-17] MEDS: ATORVASTATIN 10 MG TABLET PO (20:47)
[2024-01-17] MEDS: INSULIN GLARGINE (*BKC) 100 UNITS/ML 10 UNITS SUB-Q (20:48)
[2024-01-17 21:02] LABS: Glucose Point of Care 152 mg/dl (65-105)
[2024-01-18] VITALS (14 sets, daily range): BP systolic 142–175; BP diastolic 50–67; PULSE 78–88; RESP 16–22; TEMP 36.3–37; O2SAT 91–97; BMI 32.9
[2024-01-18] MEDS: metroNIDAZOLE 500 MG/ISO 100ML 500 MG/100 ML BAG 100 MG IVPB ×3 (01:40→17:13)
[2024-01-18] MEDS: IPRATROPIUM 0.5 MG/ALBUTEROL SULFATE 2.5 MG AMPUL.NEB 3 ML INHALATION ×4 (02:32→19:32)
[2024-01-18] MEDS: SODIUM CHLORIDE 0.9% IV 1,000 ML 75 ML IV CONT ×2 (06:04→23:14)
[2024-01-18 06:14] LABS: Basophils Percent Auto 0.3 % (0.2-1.2); Eosinophils Absolute Auto 0.1 K/mm3 (0-0.3); Eosinophils Percent Auto 2.3 % (0-4.4); Hemoglobin 8.5 g/dL (12.0-15.0); Immature Granulocyte Absolute 0.09 K/mm3 (0.00-0.031); Immature Granulocyte Percent A 1.5 % (0-0.5); Lymphocytes Percent Auto 16.7 % (18.3-44.2); Mean Corpuscular HGB Conc 31.5 g/dl (32-36); Mean Corpuscular Hemoglobin 26.4 pg (26-34); Mean Corpuscular Volume 83.9 fl (80-100); Mean Platelet Volume 10.5 fl (7.4-10.4); Monocytes Absolute Auto 0.5 K/mm3 (0.1-0.6); Neutrophils Absolute Auto 4.3 K/mm3 (1.3-6.7); Neutrophils Percent Auto 71.2 % (45.5-73.1); Platelet Count Result 245 k/mm3 (150-375); Red Blood Count 3.22 M/mm3 (4.2-5.4); Red Cell Distribution Width 13.2 % (11.5-14.5)
[2024-01-18 06:25] LABS: Alanine Aminotransferase 19 U/L (6-35); Albumin Level 3.3 g/dL (3.5-5.1); Alkaline Phosphatase 65 U/L (38-126); Anion Gap 11 mmol/L (4-12); Aspartate Amino Transferase 26 U/L (14-36); Bilirubin,Total 0.3 mg/dL (0.2-1.3); Blood Urea Nitrogen 64 mg/dL (7-17); Calcium 8.2 mg/dL (8.4-10.2); Carbon Dioxide 21 mmol/L (22-30); Chloride 110 mmol/L (98-107); Estimated CRCL calculation 12 ml/min; Estimated Glomerular Filt Rate 13; Glucose 140 mg/dL (65-110); Potassium 3.8 mmol/L (3.4-5.0); Sodium 142 mmol/L (137-145)
[2024-01-18 07:37] LABS: Glucose Point of Care 156 mg/dl (65-105)
[2024-01-18 11:35] LABS: Glucose Point of Care 168 mg/dl (65-105)
[2024-01-18] MEDS: ENOXAPARIN 30 MG/0.3 ML SYRINGE SUB-Q (11:40)
--- NOTE | 2024-01-18 11:51 | PM.IMPN ---
Progress Note: A&P Assessment and Plan (1) Pneumonia: Qualifiers: Aspiration pneumonia type: unspecified Laterality: left Lung location: lower lobe of lung Pneumonia type: aspiration pneumonia Qualified Code(s): J69.0 - Pneumonitis due to inhalation of food and vomit Code(s): J18.9 - Pneumonia, unspecified organism Status: Acute Assessment and Plan: -IV Levofloxacin 500 mg IVPB q 48 hours. -IV Metronidazole 500 mg IVPB q 8 hours. -Duoneb q 6. - 02@2LNC - Patient will need a modified barium swallow recommended by speech therapy. NPO for now. (2) Acute hypoxic respiratory failure: Code(s): J96.01 - Acute respiratory failure with hypoxia Status: Acute Assessment and Plan: - 02@2LNC. (3) Acute kidney injury superimposed on stage 4 chronic kidney disease: Code(s): N17.9 - Acute kidney failure, unspecified; N18.4 - Chronic kidney disease, stage 4 (severe) Status: Acute Assessment and Plan: - 01/16/24: BUN 77, creatinine 3.90, & GFR 11 - 01/17/24: BUN 72, creatinine 3.50, & GFR 13 - 01/18/24: BUN 64, creatinine 3.30, & GFR 13 - monitor labs and I&O - NS@ 75ml/hr. Patient is NPO until evaluated with a modified barium swallow. (4) Type 2 diabetes mellitus with hyperglycemia, with long-term current use of insulin: Code(s): E11.65 - Type 2 diabetes mellitus with hyperglycemia; Z79.4 - ferry terminal supervisor (current) use of insulin Status: Acute Assessment and Plan: - HgbA1C 7.5%. - Receiving long acting Glargine and SSI. (5) Heel blister: Code(s): S90.829A - Blister (nonthermal), unspecified foot, initial encounter Status: Acute Assessment and Plan: - Wound care consult. Ordered waffle boots and foam border dressing. - Float heels. Subjective Date/time seen: 01/18/24 11:51 Interval history: Patient denies chest pain, palpitations, headache, dizziness, nausea, or vomiting. Patient reports not sleeping well last night. Review of Systems Review of Systems: All systems reviewed & are unremarkable except as noted in HPI and below Exam Const: General: no acute distress HENMT: Mouth: Yes dry mucous membranes Resp: Other: Rales and rhonchi scatted bilaterally. Cardio: Rate: regular rate Rhythm: regular rhythm GI: GI Palp: Yes Soft to palpation Auscultation: normal bowel sounds Neuro: Other: Equal squeezing of hands. Psych: Other: Drowsy but able to answer questions. Objective Data Vital Signs Vital Signs: Vital Signs - 24 hr 01/17/24 12:00 01/17/24 13:00 01/17/24 13:10 Temperature Pulse Rate 77 88 85 Respiratory Rate 20 20 Blood Pressure Pulse Oximetry Oxygen Delivery Oxygen Flow Rate Fraction of Inspired Oxygen 01/17/24 14:00 01/17/24 20:01 01/17/24 20:04 Temperature 97.4 F L Pulse Rate 77 82 82 Respiratory Rate 20 20 20 Blood Pressure 148/73 H Pulse Oximetry 96 93 Oxygen Delivery Nasal Cannula Oxygen Flow Rate 2 Fraction of Inspired Oxygen 01/17/24 20:10 01/17/24 20:47 01/17/24 20:00 Temperature Pulse Rate 79 80 Respiratory Rate 20 Blood Pressure Pulse Oximetry 93 Oxygen Delivery Nasal Cannula Oxygen Flow Rate 2 Fraction of Inspired Oxygen 01/17/24 22:00 01/18/24 02:33 01/18/24 02:44 Temperature 98.1 F Pulse Rate 85 86 78 Respiratory Rate 20 20 19 Blood Pressure 127/46 L Pulse Oximetry 94 Oxygen Delivery Oxygen Flow Rate Fraction of Inspired Oxygen 01/18/24 06:00 01/18/24 07:51 01/18/24 07:51 Temperature 98.6 F Pulse Rate 82 78 Respiratory Rate 22 H 20 Blood Pressure 159/58 H Pulse Oximetry 91 92 Oxygen Delivery Nasal Cannula Oxygen Flow Rate 2 Fraction of Inspired Oxygen 01/18/24 08:01 01/18/24 09:00 01/18/24 09:34 Temperature Pulse Rate 79 84 83 Respiratory Rate 20 16 Blood Pressure 142/50 H Pulse Oximetry 97 93 Oxygen Delivery Oxygen Leonidas
--- NOTE | 2024-01-18 12:10 | PC.NURSE ---
On 01/18/24, the student, [Yumiko Cary], provided care and completed [facility] documentation on this patient. I have reviewed the student's documentation and agree with the findings.
--- NOTE | 2024-01-18 15:35 | PCSTNOTE ---
Therapist assessed patient who shook head yes one time, and nodded head no one time but otherwise did not open eyes at therapist request and made no other movements or responses to indicate she was awake enough to participate in Modified Barium Swallow study. Student RN's indicated that had repositioned her earlier this morning and she made no response to awake or arouse and has been like this since yesterday (Thursday). Will reassess in the morning.
[2024-01-18 17:28] LABS: Glucose Point of Care 142 mg/dl (65-105)
[2024-01-18 19:28] LABS: Glucose Point of Care 123 mg/dl (65-105)
[2024-01-18] MEDS: INSULIN GLARGINE (*BKC) 100 UNITS/ML 10 UNITS SUB-Q (20:58)
[2024-01-18] MEDS: levoFLOXacin 500 MG/D5W 100 ML 500 MG/100 ML BAG 100 MG IVPB (21:00)
[2024-01-19] VITALS (15 sets, daily range): BP systolic 156–173; BP diastolic 64–83; PULSE 70–91; RESP 14–20; TEMP 36.4–36.8; O2SAT 95–98
[2024-01-19] MEDS: IPRATROPIUM 0.5 MG/ALBUTEROL SULFATE 2.5 MG AMPUL.NEB 3 ML INHALATION ×4 (02:12→20:08)
[2024-01-19] MEDS: metroNIDAZOLE 500 MG/ISO 100ML 500 MG/100 ML BAG 100 MG IVPB ×3 (02:55→17:19)
[2024-01-19 07:26] LABS: Basophils Percent Auto 0.8 % (0.2-1.2); Eosinophils Absolute Auto 0.1 K/mm3 (0-0.3); Eosinophils Percent Auto 2.6 % (0-4.4); Hematocrit 27.9 % (37.0-47.0); Hemoglobin 8.4 g/dL (12.0-15.0); Immature Granulocyte Absolute 0.17 K/mm3 (0.00-0.031); Immature Granulocyte Percent A 3.2 % (0-0.5); Lymphocytes Absolute Auto 0.75 K/mm3 (0.9-3.2); Lymphocytes Percent Auto 14.1 % (18.3-44.2); Mean Corpuscular HGB Conc 30.1 g/dl (32-36); Mean Corpuscular Hemoglobin 25.8 pg (26-34); Mean Corpuscular Volume 85.6 fl (80-100); Mean Platelet Volume 9.8 fl (7.4-10.4); Monocytes Absolute Auto 0.4 K/mm3 (0.1-0.6); Monocytes Percent Auto 7.9 % (2.6-8.5); Neutrophils Absolute Auto 3.8 K/mm3 (1.3-6.7); Neutrophils Percent Auto 71.4 % (45.5-73.1); Platelet Count Result 258 k/mm3 (150-375); Red Blood Count 3.26 M/mm3 (4.2-5.4); Red Cell Distribution Width 13.2 % (11.5-14.5); White Blood Count 5.3 K/mm3 (4.5-10.0)
[2024-01-19] MEDS: carvediloL 3.125 MG TABLET PO ×2 (07:37→20:59)
[2024-01-19 07:40] LABS: Alanine Aminotransferase 14 U/L (6-35); Albumin Level 3.2 g/dL (3.5-5.1); Alkaline Phosphatase 60 U/L (38-126); Anion Gap 12 mmol/L (4-12); Aspartate Amino Transferase 20 U/L (14-36); Bilirubin,Total 0.2 mg/dL (0.2-1.3); Blood Urea Nitrogen 53 mg/dL (7-17); Carbon Dioxide 17 mmol/L (22-30); Chloride 117 mmol/L (98-107); Estimated CRCL calculation 15 ml/min; Estimated Glomerular Filt Rate 17; Glucose 129 mg/dL (65-110); Potassium 4.1 mmol/L (3.4-5.0); Sodium 146 mmol/L (137-145)
[2024-01-19 07:53] LABS: Glucose Point of Care 137 mg/dl (65-105)
[2024-01-19] MEDS: ENOXAPARIN 30 MG/0.3 ML SYRINGE SUB-Q (08:46)
--- NOTE | 2024-01-19 10:37 | PCSTNOTE ---
Please refer to the Bedside Swallow Evaluation in the EMR. Please note, silent aspiration cannot be ruled out at bedside.
[2024-01-19 11:41] LABS: Glucose Point of Care 142 mg/dl (65-105)
--- NOTE | 2024-01-19 14:16 | PCSTNOTE ---
Please refer to the Modified Barium Swallow Evaluation in the EMR.
[2024-01-19] MEDS: NIFEdipine 30 MG TAB.ER.24 90 MG PO (14:28)
[2024-01-19] MEDS: PARoxetine 20 MG TABLET 40 MG PO (14:29)
--- NOTE | 2024-01-19 15:28 | PM.IMPN ---
Progress Note: A&P Assessment and Plan (1) Pneumonia: Qualifiers: Aspiration pneumonia type: unspecified Laterality: left Lung location: lower lobe of lung Pneumonia type: aspiration pneumonia Qualified Code(s): J69.0 - Pneumonitis due to inhalation of food and vomit Code(s): J18.9 - Pneumonia, unspecified organism Status: Acute Assessment and Plan: -IV Levofloxacin 500 mg IVPB q 48 hours. -IV Metronidazole 500 mg IVPB q 8 hours. -Duoneb q 6. - 02@2LNC - Modified barium swallow today showed: FINDINGS: Oral stage: Adequate function. Pharyngeal stage: Adequate function. Cervical/esophageal stage: Adequate function. IMPRESSION: Patient tolerated regular consistency oral feedings in the upright position. Please correlate with speech pathologist findings and specific feeding recommendations. - Patient started on a Pureed, level 4 diet. If family brings in dentures we can have speech reevaluate to see about advancing diet. - Encourage PO intake. (2) Acute hypoxic respiratory failure: Code(s): J96.01 - Acute respiratory failure with hypoxia Status: Acute Assessment and Plan: - 02@2LNC. (3) Acute kidney injury superimposed on stage 4 chronic kidney disease: Code(s): N17.9 - Acute kidney failure, unspecified; N18.4 - Chronic kidney disease, stage 4 (severe) Status: Acute Assessment and Plan: - 01/16/24: BUN 77, creatinine 3.90, & GFR - 01/17/24: BUN 72, creatinine 3.50, & GFR - 01/18/24: BUN 64, creatinine 3.30, & GFR 01/19/24: BUN 53, creatinine 2.70, & GFR 17 - monitor labs and I&O. (4) Type 2 diabetes mellitus with hyperglycemia, with long-term current use of insulin: Code(s): E11.65 - Type 2 diabetes mellitus with hyperglycemia; Z79.4 - intermodal owner operator truck driver (current) use of insulin Status: Acute Assessment and Plan: - HgbA1C 7.5%. - Receiving long acting Glargine and SSI. (5) Heel blister: Code(s): S90.829A - Blister (nonthermal), unspecified foot, initial encounter Status: Acute Assessment and Plan: - Wound care consult. Ordered waffle boots and foam border dressing. - Float heels. Subjective Date/time seen: 01/19/24 15:28 Interval history: Patient is more alert today and answering questions. Patient able to participate in swallow studies. Patient denies chest pain, palpitations, headache, dizziness, nausea, or vomiting. Review of Systems Review of Systems: All systems reviewed & are unremarkable except as noted in HPI and below Exam Const: General: comfortable and no acute distress Resp: Other: Rales and rhonchi scatted bilaterally. Cardio: Rate: regular rate Rhythm: regular rhythm GI: GI Palp: Yes Soft to palpation Auscultation: normal bowel sounds Skin: Other: left inner heel 2 inch round blister filled raised area. right heel pink. Waffle boots in place. Psych: Other: More alert today. Objective Data Vital Signs Vital Signs: Vital Signs - 24 hr 01/18/24 19:32 01/18/24 19:32 01/18/24 19:38 Temperature Pulse Rate 86 82 Respiratory Rate 18 18 Blood Pressure Pulse Oximetry 95 Oxygen Delivery Nasal Cannula Oxygen Flow Rate 2 Fraction of Inspired Oxygen 01/18/24 20:50 01/18/24 21:30 01/19/24 02:13 Temperature 97.6 F Pulse Rate 84 83 Respiratory Rate 20 14 Blood Pressure 172/65 H 175/67 H Pulse Oximetry 93 Oxygen Delivery Oxygen Flow Rate Fraction of Inspired Oxygen 01/19/24 02:19 01/19/24 05:30 01/19/24 07:20 Temperature 98.3 F Pulse Rate 85 91 Respiratory Rate 14 20 Blood Pressure 171/73 H Pulse Oximetry 95 96 Oxygen Delivery Nasal Cannula Oxygen Flow Rate 2 Fraction of Inspired Oxygen 01/19/24 07:20 01/19/24 07:30 01/19/24 07:37 Temperature Pulse Rate 80 86 80 Respiratory Rate 16 16 Blood Pressure Pulse Oximetry Oxygen Delivery Oxygen Flow Rate Fraction of
[2024-01-19 16:41] LABS: Glucose Point of Care 181 mg/dl (65-105)
[2024-01-19 20:45] LABS: Glucose Point of Care 128 mg/dl (65-105)
[2024-01-19] MEDS: INSULIN GLARGINE (*BKC) 100 UNITS/ML 10 UNITS SUB-Q (20:59)
[2024-01-19] MEDS: ATORVASTATIN 10 MG TABLET PO (20:59)
[2024-01-20] VITALS (16 sets, daily range): BP systolic 134–174; BP diastolic 55–78; PULSE 70–82; RESP 16–20; TEMP 36.3–37.2; O2SAT 93–96
[2024-01-20] MEDS: IPRATROPIUM 0.5 MG/ALBUTEROL SULFATE 2.5 MG AMPUL.NEB 3 ML INHALATION ×4 (01:30→20:42)
[2024-01-20] MEDS: metroNIDAZOLE 500 MG/ISO 100ML 500 MG/100 ML BAG 100 MG IVPB ×3 (02:49→17:02)
[2024-01-20 07:32] LABS: Basophils Percent Auto 0.5 % (0.2-1.2); Eosinophils Absolute Auto 0.2 K/mm3 (0-0.3); Eosinophils Percent Auto 2.5 % (0-4.4); Hematocrit 28.6 % (37.0-47.0); Hemoglobin 8.6 g/dL (12.0-15.0); Immature Granulocyte Absolute 0.12 K/mm3 (0.00-0.031); Lymphocytes Absolute Auto 1.06 K/mm3 (0.9-3.2); Lymphocytes Percent Auto 17.5 % (18.3-44.2); Mean Corpuscular HGB Conc 30.1 g/dl (32-36); Mean Corpuscular Hemoglobin 25.8 pg (26-34); Mean Corpuscular Volume 85.9 fl (80-100); Monocytes Absolute Auto 0.6 K/mm3 (0.1-0.6); Monocytes Percent Auto 9.1 % (2.6-8.5); Neutrophils Absolute Auto 4.2 K/mm3 (1.3-6.7); Neutrophils Percent Auto 68.4 % (45.5-73.1); Platelet Count Result 245 k/mm3 (150-375); Red Blood Count 3.33 M/mm3 (4.2-5.4); Red Cell Distribution Width 13.2 % (11.5-14.5); White Blood Count 6.1 K/mm3 (4.5-10.0)
[2024-01-20 07:36] LABS: Glucose Point of Care 114 mg/dl (65-105)
[2024-01-20 07:43] LABS: Alanine Aminotransferase 12 U/L (6-35); Albumin Level 3.1 g/dL (3.5-5.1); Alkaline Phosphatase 54 U/L (38-126); Anion Gap 8 mmol/L (4-12); Aspartate Amino Transferase 22 U/L (14-36); Bilirubin,Total 0.4 mg/dL (0.2-1.3); Blood Urea Nitrogen 48 mg/dL (7-17); Calcium 8.1 mg/dL (8.4-10.2); Carbon Dioxide 21 mmol/L (22-30); Chloride 116 mmol/L (98-107); Estimated CRCL calculation 17 ml/min; Estimated Glomerular Filt Rate 19; Glucose 111 mg/dL (65-110); Potassium 4.3 mmol/L (3.4-5.0); Sodium 145 mmol/L (137-145)
[2024-01-20] MEDS: carvediloL 3.125 MG TABLET PO ×2 (08:23→20:22)
[2024-01-20] MEDS: CALCIUM/VITAMIN D 500 MG/5 MCG (200 I.U.) TABLET PO (08:23)
[2024-01-20] MEDS: calcitrioL 0.25 MCG CAPSULE PO (08:23)
[2024-01-20] MEDS: ENOXAPARIN 30 MG/0.3 ML SYRINGE SUB-Q (08:24)
[2024-01-20] MEDS: FAMOTIDINE 20 MG TABLET 40 MG PO (08:24)
[2024-01-20] MEDS: NIFEdipine 30 MG TAB.ER.24 90 MG PO (08:24)
[2024-01-20] MEDS: polyethylene glycoL 3350 17 GM POWD.PACK PO (08:25)
[2024-01-20] MEDS: PARoxetine 20 MG TABLET 40 MG PO (08:25)
[2024-01-20 08:34] LABS: Influenza A QL RT-PCR Negative (Negative); Influenza B QL RT-PCR Negative (Negative); RSV RNA, RT-PCR Negative (Negative); SARS-CoV-2 RNA PCR Negative (Negative)
[2024-01-20 11:49] LABS: Glucose Point of Care 151 mg/dl (65-105)
[2024-01-20] MEDS: FERROUS SULFATE 325 MG TABLET DR PO (12:16)
--- NOTE | 2024-01-20 13:44 | PM.IMPN ---
Progress Note: A&P Assessment and Plan (1) Acute hypoxic respiratory failure: Code(s): J96.01 - Acute respiratory failure with hypoxia Status: Acute Assessment and Plan: Baseline RA Weaned from 6L to 2L NC Wean for O2 sat >92% Improved with treatment of pneumonia and diuresis (2) Acute kidney injury superimposed on stage 4 chronic kidney disease: Code(s): N17.9 - Acute kidney failure, unspecified; N18.4 - Chronic kidney disease, stage 4 (severe) Status: Acute Assessment and Plan: - 01/16/24: BUN 77, creatinine 3.90, & GFR - 01/17/24: BUN 72, creatinine 3.50, & GFR - 01/18/24: BUN 64, creatinine 3.30, & GFR - 01/19/24: BUN 53, creatinine 2.70, & GFR 17 - monitor labs and I&O. (3) Type 2 diabetes mellitus with hyperglycemia, with long-term current use of insulin: Code(s): E11.65 - Type 2 diabetes mellitus with hyperglycemia; Z79.4 - long term care social worker (current) use of insulin Status: Acute Assessment and Plan: - HgbA1C 7.5%. - Receiving long acting Glargine and SSI. (4) Heel blister: Code(s): S90.829A - Blister (nonthermal), unspecified foot, initial encounter Status: Acute Assessment and Plan: - Wound care consult. Ordered waffle boots and foam border dressing. - Float heels. (5) CAP (community acquired pneumonia): Code(s): J18.9 - Pneumonia, unspecified organism Status: Acute Assessment and Plan: 01/15 chest xray IMPRESSION: Left lower lobe atelectasis versus pneumonia. --Improving with levaquin/flagyl. DC flagyl, not aspirating on barium swallow (6) Heart failure: Code(s): I50.9 - Heart failure, unspecified Status: Acute Assessment and Plan: NTproBNP elevated, 6210, s/p lasix --TTE --20mg IV lasix & reassess Time Spent With Patient Time: 45 minutes Subjective Date/time seen: 01/20/24 13:44 Interval history: RN reports frequent cough. Still on 2L O2, usually on room air. Review of Systems Review of Systems: All systems reviewed & are unremarkable except as noted in HPI and below ROS unobtainable: Yes unobtainable due to mental status Exam Narrative: Weight 84.4 kg BMI 33 Const: General: comfortable and no acute distress Other: Awake and alert, lying in bed in no acute distress HENMT: Mouth: Yes dry mucous membranes Other: Head is normocephalic atraumatic, mucous membranes are tacky, edentulous in upper and lower jaw, crowded posterior oropharynx Eyes: Other: Positive conjunctival pallor, no scleral icterus, pupils are equal and reactive Neck: Neck: supple Other: Large neck circumference, no obvious JVD but difficult to assess due to body habitus and positioning Resp: Other: Rales and rhonchi scatted bilaterally. Cardio: Rate: regular rate Rhythm: regular rhythm Other: Regular rate, regular rhythm, 2+ bilateral radial and pedal pulses GI: Auscultation: normal bowel sounds Other: Obese, soft, nontender Skin: Other: left inner heel 2 inch round blister filled raised area. right heel pink. Waffle boots in place. Neuro: Speech: normal speech Other: Equal squeezing of hands. 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 Objective Data Vital Signs Vital Signs: Vital Signs - 24 hr 01/19/24 13:56 01/19/24 14:04 01/19/24 14:00 Temperature 97.5 F L Pulse Rate 70 72 80 Respiratory Rate 20 20 14 Blood Pressure 173/83 H Pulse Oximetry 98 Oxygen Delivery Oxygen Flow Rate 01/19/24 20:08 01/19/24 20:09 01/19/24 20:18 Temperature Pulse Rate 71 75 Respiratory Rate 20 20 Blood Pressure Pulse Oximetry 95 Oxygen Delivery Nasal Cannula Oxygen Flow Rate 2 01/19/24 20:43 01/19/24 20:59 01/20/24 01:31 Temperature 98.3 F Pulse Rate 76 75 70 Respiratory Rate 20 20 B
[2024-01-20 16:37] LABS: Glucose Point of Care 138 mg/dl (65-105)
[2024-01-20] MEDS: FUROSEMIDE INJ 40 MG/4 ML VIAL 20 MG IV PUSH (17:02)
[2024-01-20] MEDS: INSULIN GLARGINE (*BKC) 100 UNITS/ML 10 UNITS SUB-Q (20:21)
[2024-01-20] MEDS: ATORVASTATIN 10 MG TABLET PO (20:22)
[2024-01-20] MEDS: levoFLOXacin 500 MG/D5W 100 ML 500 MG/100 ML BAG 100 MG IVPB (20:26)
[2024-01-20 21:01] LABS: Glucose Point of Care 108 mg/dl (65-105)
[2024-01-21] VITALS (10 sets, daily range): BP systolic 145–149; BP diastolic 95–112; PULSE 72–81; RESP 16–20; TEMP 36.9–37.5; O2SAT 87–95
--- NOTE | 2024-01-21 | ECHO_ITS ---
Patient Info Name: Sierra Danielle Age: 83 years : 1940 Gender: Female Ht: 63 in Wt: 186 lbs BSA: 1.97 m2 HR: 74 bpm BP: 134 / 78 mmHg Technical Quality: Fair Exam Date: 01/21/2024 11:36 AM Exam Location: Echo Lab Patient Status: Inpatient Admit Date: 01/17/2024 Staff Ordering Physician: Tasha Norton APRN [employer] Project Manager: Dolores Swann RDCS Attending Provider: Tasha Norton APRN Exam Type: CA echo doppler color flow Study Info Indications J96.00 - Acute respiratory failure, unspecified whether with hypoxia or hypercapnia Complete two-dimensional, color flow and Doppler transthoracic echocardiogram is performed. Summary 1. Complete two-dimensional, color flow and Doppler transthoracic echocardiogram is performed. 2. The left ventricular size and systolic function is normal. LVEF is estimated to be 60-65%. 3. The aortic valve is trileaflet. There is no aortic stenosis or regurgitation. Left Ventricle The left ventricular size and systolic function is normal. LVEF is estimated to be 60-65%. Right Ventricle The right ventricular size and systolic function is normal. Left Atria The left atrium is normal size. Aortic Valve The aortic valve is trileaflet. There is no aortic stenosis or regurgitation. Pulmonic Valve The pulmonic valve is normal. There is no pulmonic valve regurgitation. Mitral Valve The mitral valve is normal. There is trace mitral regurgitation. Tricuspid Valve The tricuspid valve is normal. There is trace tricuspid regurgitation. Pericardium/Pleural There are no optimal subcostal windows to assess for pericardial effusion however in all the other views there was only trace pericardial effusion. Inferior Vena Cava Normal inferior vena cava with >50% collapse upon inspiration consistent with normal right atrial pressure, 3 mmHg. Left Ventricular Outflow Tract Name Value Normal LVOT 2D LVOT Diameter 1.9 cm LVOT Doppler LVOT Peak Gradient 6 mmHg LVOT Mean Gradient 3 mmHg LVOT VTI 26 cm LVOT VTI/AV VTI Ratio 0.6 LVOT Stroke Volume 70 ml LVOT CO 5.0 l/min LVOT CI 2.5 l/min/m2 Pulmonic Valve Name Value Normal PV Doppler PV Peak Gradient 4 mmHg Mitral Valve Name Value Normal MV Doppler MV Decel Gem 509 cm/s2 MV PHT 57 ms MV Area (PHT) 3.8 cm2 4.0-5.0 MV Diastolic Function MV E Peak Ve
[2024-01-21] MEDS: IPRATROPIUM 0.5 MG/ALBUTEROL SULFATE 2.5 MG AMPUL.NEB 3 ML INHALATION ×3 (02:23→14:22)
[2024-01-21 07:27] LABS: Glucose Point of Care 173 mg/dl (65-105)
[2024-01-21] MEDS: PARoxetine 20 MG TABLET 40 MG PO (08:57)
[2024-01-21] MEDS: carvediloL 3.125 MG TABLET PO (08:57)
[2024-01-21] MEDS: ENOXAPARIN 30 MG/0.3 ML SYRINGE SUB-Q (08:57)
[2024-01-21] MEDS: FAMOTIDINE 20 MG TABLET 40 MG PO (08:57)
[2024-01-21] MEDS: calcitrioL 0.25 MCG CAPSULE PO (08:58)
[2024-01-21] MEDS: NIFEdipine 30 MG TAB.ER.24 90 MG PO (08:58)
[2024-01-21] MEDS: polyethylene glycoL 3350 17 GM POWD.PACK PO (08:58)
[2024-01-21] MEDS: CALCIUM/VITAMIN D 500 MG/5 MCG (200 I.U.) TABLET PO (08:58)
--- NOTE | 2024-01-21 09:57 | PM.IMPN ---
Progress Note: A&P Assessment and Plan (1) Acute hypoxic respiratory failure: Code(s): J96.01 - Acute respiratory failure with hypoxia Status: Acute Assessment and Plan: Baseline RA Weaned from 6L to 2L NC Wean for O2 sat >92% Improved with treatment of pneumonia and diuresis (2) Acute kidney injury superimposed on stage 4 chronic kidney disease: Code(s): N17.9 - Acute kidney failure, unspecified; N18.4 - Chronic kidney disease, stage 4 (severe) Status: Acute Assessment and Plan: - 01/16/24: BUN 77, creatinine 3.90, & GFR 11 - 01/17/24: BUN 72, creatinine 3.50, & GFR - 01/18/24: BUN 64, creatinine 3.30, & GFR - 01/19/24: BUN 53, creatinine 2.70, & GFR 17 - monitor labs and I&O. (3) Type 2 diabetes mellitus with hyperglycemia, with long-term current use of insulin: Code(s): E11.65 - Type 2 diabetes mellitus with hyperglycemia; Z79.4 - superintendent terminal (current) use of insulin Status: Acute Assessment and Plan: - HgbA1C 7.5%. - Receiving long acting Glargine and SSI. (4) Heel blister: Code(s): S90.829A - Blister (nonthermal), unspecified foot, initial encounter Status: Acute Assessment and Plan: - Wound care consult. Ordered waffle boots and foam border dressing. - Float heels. (5) CAP (community acquired pneumonia): Code(s): J18.9 - Pneumonia, unspecified organism Status: Acute Assessment and Plan: 01/15 chest xray IMPRESSION: Left lower lobe atelectasis versus pneumonia. --Improving with levaquin/flagyl. DC flagyl, not aspirating on barium swallow (6) Heart failure: Code(s): I50.9 - Heart failure, unspecified Status: Acute Assessment and Plan: NTproBNP elevated, 6210, s/p lasix --TTE --20mg IV lasix & reassess Subjective Date/time seen: 01/21/24 09:57 Interval history: Assuming care. Pt is seen and exmained. Still on 2L O2, usually on room air. Review of Systems Review of Systems: All systems reviewed & are unremarkable except as noted in HPI and below ROS unobtainable: Yes unobtainable due to mental status Exam Narrative: Weight 84.4 kg BMI 33 Const: General: comfortable and no acute distress Other: Awake and alert, lying in bed in no acute distress HENMT: Mouth: Yes dry mucous membranes Other: Head is normocephalic atraumatic, mucous membranes are tacky, edentulous in upper and lower jaw, crowded posterior oropharynx Eyes: Other: Positive conjunctival pallor, no scleral icterus, pupils are equal and reactive Neck: Neck: supple Other: Large neck circumference, no obvious JVD but difficult to assess due to body habitus and positioning Resp: Other: Rales and rhonchi scatted bilaterally. Cardio: Rate: regular rate Rhythm: regular rhythm Other: Regular rate, regular rhythm, 2+ bilateral radial and pedal pulses GI: Auscultation: normal bowel sounds Other: Obese, soft, nontender Skin: Other: left inner heel 2 inch round blister filled raised area. right heel pink. Waffle boots in place. Neuro: Speech: normal speech Other: Equal squeezing of hands. Extrem: General: normal to inspection Other: 4/5 strength bilateral platform man Psych: Affect: normal affect Other: More alert today. Objective Data Vital Signs Vital Signs: Vital Signs - 24 hr 01/20/24 13:40 01/20/24 13:40 01/20/24 13:51 Temperature Pulse Rate 79 77 Respiratory Rate 20 20 Blood Pressure Pulse Oximetry 95 Oxygen Delivery Nasal Cannula Oxygen Flow Rate 2 Fraction of Inspired Oxygen 01/20/24 14:00 01/20/24 20:22 01/20/24 20:44 Temperature 98.8 F Pulse Rate 82 76 74 Respiratory Rate 18 20 Blood Pressure 144/75 H Pulse Oximetry 93 Oxygen Delivery Oxygen Flow Rate Fraction of Inspired Oxygen 01/20/24 20:45 01/20/24 20:53 01/20/24 21:48 Temperature 97.3 F L Pulse Rate 75 8
--- NOTE | 2024-01-21 10:40 | PCNFU ---
Nutrition Follow-Up Complete: Inadequate energy intake related to NPO status as evidenced by diet orders Goal:Meet estimated needs Pt slowly progressing towards goal. Continue with same goal. Pt current nutrition is Pureed, level 4. Nutrition recommendation: Add Ensure compact TID for supplement, 220kcals,9g protein, MINNIE BID for wound Last recorded weight is 84.4 kg. Bowel Motility: +BM 01/20 Labs Reviewed: Hgb:8.6, HCT:28.6, GFR:19, BUN:48, Cr:2.4, Glu:173 Meds Noted: lovenox, insulin, zofran, miralax Skin: L heel DTPI Additional Notes: Pt passed MBS, swallow eval recommends a pureed diet due to no teeth. Diet is pureed, intake 25% of meals. Will add Ensure compact TID with meals Monitor alertness, diet orders, wt, labs. Follow up in 3 days.
[2024-01-21] MEDS: FERROUS SULFATE 325 MG TABLET DR PO (11:44)
--- NOTE | 2024-01-21 11:47 | P.CDI_ITS ---
CDI Query Clarification Request CHF has been documented. Please specify type and acuity of heart failure if known. Clinical Indicators: BNP 6210, increase needs of o2 Treatment: IV Lasix x1 dose on 01/19. * Acute * Chronic * Acute on Chronic * Unknown * Systolic * Diastolic * Combined Systolic and Diastolic * Unknown <Kassandra Yancey RN - Last Filed: 01/21/24 11:50> Clarified Diagnosis Clarified Diagnosis: CHF- unknown <Amanda Norton APRN - Last Filed: 01/21/24 14:23>
--- NOTE | 2024-01-21 11:47 | WPDCDIQUERY2 ---
CDI Query Clarification Request CHF has been documented. Please specify type and acuity of heart failure if known. Clinical Indicators: BNP 6210, increase needs of o2 Treatment: IV Lasix x1 dose on 01/19. Acute Chronic Acute on Chronic Unknown Systolic Diastolic Combined Systolic and Diastolic Unknown <Kassandra Yancey RN - Last Filed: 01/21/24 11:50> Clarified Diagnosis Clarified Diagnosis: CHF- unknown <Amanda Norton APRN - Last Filed: 01/21/24 14:23>
[2024-01-21 12:20] LABS: Glucose Point of Care 167 mg/dl (65-105)
--- NOTE | 2024-01-21 12:59 | PM.DS ---
DS: Admitting Diagnosis Discharge Date 01/20 Admitting Diagnosis sob DS: Discharge Diagnosis Discharge Diagnosis (1) Acute hypoxic respiratory failure: Code(s): J96.01 - Acute respiratory failure with hypoxia Status: Acute Assessment and Plan: Baseline RA Weaned from 6L to 2L NC Wean for O2 sat >92% Improved with treatment of pneumonia and diuresis (2) Acute kidney injury superimposed on stage 4 chronic kidney disease: Code(s): N17.9 - Acute kidney failure, unspecified; N18.4 - Chronic kidney disease, stage 4 (severe) Status: Acute Assessment and Plan: - 01/16/24: BUN 77, creatinine 3.90, & GFR - 01/17/24: BUN 72, creatinine 3.50, & GFR - 01/18/24: BUN 64, creatinine 3.30, & GFR - 01/19/24: BUN 53, creatinine 2.70, & GFR 17 - monitor labs and I&O. (3) Type 2 diabetes mellitus with hyperglycemia, with long-term current use of insulin: Code(s): E11.65 - Type 2 diabetes mellitus with hyperglycemia; Z79.4 - intermodal truck driver (current) use of insulin Status: Acute Assessment and Plan: - HgbA1C 7.5%. - Receiving long acting Glargine and SSI. (4) Heel blister: Code(s): S90.829A - Blister (nonthermal), unspecified foot, initial encounter Status: Acute Assessment and Plan: - Wound care consult. Ordered waffle boots and foam border dressing. - Float heels. (5) CAP (community acquired pneumonia): Code(s): J18.9 - Pneumonia, unspecified organism Status: Acute Assessment and Plan: 01/15 chest xray IMPRESSION: Left lower lobe atelectasis versus pneumonia. --Improving with levaquin/flagyl. DC flagyl, not aspirating on barium swallow (6) Heart failure: Code(s): I50.9 - Heart failure, unspecified Status: Acute Assessment and Plan: NTproBNP elevated, 6210, s/p lasix --TTE --20mg IV lasix & reassess DS: Summary Hospital Course Hospital Course: cough, hypoxia Narrative: 83-year-old female with past medical history of dementia, CHF, diabetes, chronic kidney disease her aspiration pneumonia who presents the ER from [facility] due to cough and hypoxia. Patient's oxygen saturations on room air were 83%. EMS place patient on 6 L nasal cannula oxygen saturations came up to 93%. After treatment in the ER with nebulizers and Levaquin the patient's oxygen was able to be weaned down to 2 L nasal cannula. Patient is only alert orient x1 at the time of my evaluation and cannot provide any meaningful history. The patient is noted to have a significant cough at bedside. When she does cough some of her upper airway noise does clear but she still has significant crackles left greater than right. Patient has been afebrile. - Baseline RA Weaned from 6L to 2L NC Wean for O2 sat >92% Improved with treatment of pneumonia and diuresis # EVANGELISTA cr/bun improved # pneumonia -levaquin Status at Discharge Functional status at discharge: uses cane/walker Overall status at discharge: patient is progressing back to baseline Time Spent with Patient Time attestation: Total time spent providing and/or coordinating discharge services: Time spent: Greater than 30 minutes Exam Narrative: Weight 84.4 kg BMI 33 Const: General: comfortable and no acute distress Other: Awake and alert, lying in bed in no acute distress HENMT: Mouth: Yes dry mucous membranes Other: Head is normocephalic atraumatic, mucous membranes are tacky, edentulous in upper and lower jaw, crowded posterior oropharynx Eyes: Other: Positive conjunctival pallor, no scleral icterus, pupils are equal and reactive Neck: Neck: supple Other: Large neck circumference, no obvious JVD but difficult to assess due to body habitus and positioning Resp: Other: clear, slightly diminished Cardio: Rate: regular rate Rhythm: regular rhythm Other: Regular rate, regular rhythm, 2+ bilateral radial and pedal pulses
== END 2024-01-21 17:00 | DRG 177 ==
LOC: ANHED 18:56 → ANH3MEDSUR 19:52
PROVIDERS: Internal Medicine; Nurse Practitioner Acute Care; Nurse Practitioner Family; Admitting Provider General Practice; Emergency Provider Emergency Medicine; PCP Internal Medicine; Visit Provider Nurse Practitioner
DX: J69.0 Pneumonitis due to inhalation of food and vomit (principal); J96.01 Acute respiratory failure with hypoxia; I13.0 Hypertensive heart and chronic kidney disease with heart failure and stage 1 through stage 4 chronic kidney disease, or unspecified chronic kidney disease; N18.4 Chronic kidney disease, stage 4 (severe); N17.9 Acute kidney failure, unspecified; S90.822A Blister (nonthermal), left foot, initial encounter; E11.22 Type 2 diabetes mellitus with diabetic chronic kidney disease; E78.5 Hyperlipidemia, unspecified; E11.65 Type 2 diabetes mellitus with hyperglycemia; E11.51 Type 2 diabetes mellitus with diabetic peripheral angiopathy without gangrene; F03.90 Unspecified dementia, unspecified severity, without behavioral disturbance, psychotic disturbance, mood disturbance, and anxiety; I50.9 Heart failure, unspecified; K21.9 Gastro-esophageal reflux disease without esophagitis; Z20.822 Contact with and (suspected) exposure to COVID-19; Z79.4 Long term (current) use of insulin; Z79.84 Long term (current) use of oral hypoglycemic drugs; Z96.643 Presence of artificial hip joint, bilateral; Z90.49 Acquired absence of other specified parts of digestive tract
CPT/HCPCS: 36415; 36600; 71045; 71046; 80048; 80053; 82805; 82810; 82948; 83036; 83880; 84484; 85018; 85025; 85610; 85730; 87040; 87637; 92610; 92611; 93005; 93306; 94640; 96375; 97161; 97165; 99285; A9270; G0378; J1650; J1815; J1836; J1940; J1956; J7030

== ENCOUNTER 2024-02-16 12:52 | Inpatient (IN) | payer MEDICARE, MEDICAID, SELFPAY ==
--- NOTE | ~2024-02-16 | XR_ITS ---
EXAMINATION: XR chest 2V DATE: 02/16/2024 14:04 INDICATION: Weakness. Lethargy. Dizziness. TECHNIQUE: Frontal and lateral views of the chest were obtained. COMPARISON: Chest 2 views 01/21/2024 FINDINGS: There are airspace opacities at left lung base. No pleural effusion or pneumothorax. The he art size is normal. IMPRESSION: 1. Airspace opacities at left lung base with interval improvement, consistent with atelectasis versus pneumonia. Reviewed, dictated and finalized at location B. IMPRESSION: 1. Airspace opacities at left lung base with interval improvement, consistent w ith atelectasis versus pneumonia.
--- NOTE | ~2024-02-16 | CT_ITS ---
EXAMINATION: CT brain wo con DATE: 02/16/2024 17:09 INDICATION: confusion, lethargy . TECHNIQUE: Computed tomography (CT) of the head was performed without intravenous contrast. The mA wa s adjusted according to patient size. Iterative reconstruction technique was employed. The dose-lengt h product was 605.33 mGy-cm. COMPARISON: None. FINDINGS: Moderate motion artifact. No acute intracranial hemorrhage or extra-axial fluid collection. No hydrocephalus, mass, or herniation. No acute ischemic infarct. Unremarkable dural venous sinus attenuation. No acute osseous abnormality. Poorly pneumatized mastoid air cells, ethmoid, sphenoid, and maxillary mucosal thickening, the remain ing aerated spaces are clear. Moderate atrophy and chronic white matter change. Atherosclerotic intracranial calcification. Bilater al lens replacements. IMPRESSION: No acute intracranial process. Reviewed, dictated and finalized at location K.
[2024-02-16 12:56] VITALS: BP 161/80; PULSE 91; RESP 18; TEMP 36.3
--- NOTE | 2024-02-16 13:21 | ECG_ITS ---
Test Date: 2024-02-16 13:09:38 Measurements Intervals [place] Rate: 91 P: 93 TN: 193 QRS: -14 QRSD: 88 T: 112 QT: 358 QTc: 442 Interpretive Statements SINUS RHYTHM WITH OCCASIONAL SUPRAVENTRICULAR PREMATURE COMPLEXES SEPTAL MYOCARDIAL INFARCTION , OF INDETERMINATE AGE [40+ ms Q WAVE IN V1/V2] Compared to ECG 01/16/2024 17:48:10 Myocardial infarct finding now present Electronically Signed On 02-16-2024 14:00:54 CDT by Alisa Vernon M.D.
[2024-02-16 13:29] VITALS: PULSE 94
[2024-02-16 13:48] LABS: Basophils Percent Auto 0.4 % (0.2-1.2); Eosinophils Absolute Auto 0.1 K/mm3 (0-0.3); Eosinophils Percent Auto 1.5 % (0-4.4); Hematocrit 32.7 % (37.0-47.0); Hemoglobin 10.2 g/dL (12.0-15.0); Immature Granulocyte Absolute 0.05 K/mm3 (0.00-0.031); Immature Granulocyte Percent A 0.5 % (0-0.5); Lymphocytes Percent Auto 17.3 % (18.3-44.2); Mean Corpuscular HGB Conc 31.2 g/dl (32-36); Mean Corpuscular Hemoglobin 25.6 pg (26-34); Mean Corpuscular Volume 82.2 fl (80-100); Mean Platelet Volume 10.1 fl (7.4-10.4); Monocytes Absolute Auto 0.9 K/mm3 (0.1-0.6); Monocytes Percent Auto 9.2 % (2.6-8.5); Neutrophils Absolute Auto 6.6 K/mm3 (1.3-6.7); Neutrophils Percent Auto 71.1 % (45.5-73.1); Platelet Count Result 324 k/mm3 (150-375); Red Blood Count 3.98 M/mm3 (4.2-5.4); Red Cell Distribution Width 13.8 % (11.5-14.5); White Blood Count 9.3 K/mm3 (4.5-10.0)
[2024-02-16 13:56] LABS: Alanine Aminotransferase 27 U/L (6-35); Albumin Level 4.1 g/dL (3.5-5.1); Alkaline Phosphatase 106 U/L (38-126); Anion Gap 14 mmol/L (4-12); Aspartate Amino Transferase 31 U/L (14-36); Bilirubin,Total 0.5 mg/dL (0.2-1.3); Blood Urea Nitrogen 70 mg/dL (7-17); Calcium 10.3 mg/dL (8.4-10.2); Carbon Dioxide 27 mmol/L (22-30); Chloride 100 mmol/L (98-107); Estimated CRCL calculation 10 ml/min; Estimated Glomerular Filt Rate 10; Glucose 81 mg/dL (65-110); Potassium 4.1 mmol/L (3.4-5.0); Sodium 141 mmol/L (137-145)
[2024-02-16 14:30] VITALS: BP 109/72; PULSE 92; RESP 18; O2SAT 92
[2024-02-16 14:44] LABS: Add Urine Microscopic? YES; Appearance Urine Cloudy (Clear); Bacteria Urine None Seen /hpf; Bilirubin Urine Negative (Negative); Blood Urine 1+ (Negative); Color Urine Yellow (Yellow); Glucose Urine UA Negative (Negative); Ketones Urine Negative (Negative); Leukocyte Esterase Ur 3+ LEU/UL (Negative); Nitrate Urine Negative (Negative); Non Pathogenic Casts 0-2; Protein Urine 2+ mg/dL (Negative); RBC Urine 0-2 /hpf (0-2); Specific Grav Ur 1.013 (1.001-1.035); Squamous Epithelial Cell Urine None Seen /hpf (Few); Urobilinogen Urine 0.2 mg/dL (<2.0); WBC Urine >100 /hpf (0-3)
--- NOTE | 2024-02-16 15:17 | ED_ITS ---
HPI - Weakness General Chief complaint: Weakness Stated complaint: lethargic Time Seen by Provider: 02/16/24 14:55 History of Present Illness HPI Narrative: 83-year-old female presenting from a nursing facility with altered mental status. On my evaluation, the patient only complains of feeling tired and wanting and now. She denies any pain. According to her group home, she has b een increasingly weak and complaining of UTI symptoms. She is normally A&O x3. Today she is A&O x1. Related Data Home Medications Medication Instructions Recorded Confirmed atorvastatin 10 mg tablet 10 mg PO HS 02/20/22 02/16/24 carvedilol 3.125 mg tablet 3.125 mg PO BID 02/20/22 02/16/24 cholecalciferol (vitamin D3) 50 50 mcg PO WEEKLY 02/20/22 02/16/24 mcg (2,000 unit) capsule (Vitamin D3) famotidine 20 mg tablet 40 mg PO DAILY 02/20/22 02/16/24 ferrous sulfate 325 mg (65 mg 325 mg PO DAILY 02/20/22 02/16/24 iron) capsule,extended release furosemide 20 mg tablet 40 mg PO DAILY 02/20/22 02/16/24 insulin glargine 100 unit/mL (3 10 unit subcut HS 02/20/22 02/16/24 mL) subcutaneous pen (Lantus Solostar U-100 Insulin) paroxetine HCl 40 mg tablet 40 mg PO DAILY 02/20/22 02/16/24 linagliptin 5 mg tablet (Tradjenta) 5 mg PO DAILY 04/02/23 02/16/24 calcitriol 0.25 mcg capsule 0.25 mcg PO DAILY 01/16/24 02/16/24 insulin lispro 100 unit/mL 1 sliding scale dose subcut 01/16/24 02/16/24 subcutaneous pen USEASDIRECTD ipratropium 0.5 mg-albuterol 3 mg 3 ml inhalation Q4H PRN Shortness 01/16/24 02/16/24 (2.5 mg base)/3 mL nebulization Of Breath Or Wheezing soln nifedipine 90 mg tablet,extended 90 mg PO DAILY 01/16/24 02/16/24 release 24 hr Allergies Allergy/AdvReac Type Severity Reaction Status Date / Time Penicillins Allergy Rash Verified 12/18/23 09:16 Review of Systems Review of Systems: All systems reviewed & are unremarkable except as noted in HPI and below [facility] Past Medical History Medical History Anemia Anxiety Chronic anemia Chronic kidney disease, stage 4 (severe) Baseline creatinine appears to range between 2.20 and 2.90. Dementia Depression Gastroesophageal reflux disease Hyperlipidemia Hypertension Peripheral vascular disease Type 2 diabetes mellitus Surgical History Surgical History History of bilateral hip arthroplasty History of cholecystectomy History of colectomy History of tonsillectomy Family History Family History Mother Acute myocardial infarction Sibling Hypertension Diabetes mellitus Depression Social History Social History Social History: Healthcare power of regulatory attorney: Cydney Espinoza. Code status: Full code. Smoking status: Never smoker Alcohol intake: never Substance use: never Substance use type: does not use Do You Feel Safe in your Home?: Yes Lack of Transportation: No Lack of Food: Never True Current Housing: I Have Housing Concerned About Future Housing: No Difficulty Paying Gas/Electric Bills: No Difficulty Paying for Meds: No Currently Unemployed: No Education: Grade School Difficulty w/ Childcare or Family Care: No Additional living arrangements comments: Resident at [facility]. She is and has 4 children. Additional occupation/education comments: Homemaker. Spiritual care concerns: No Exam Narrative: GENERAL: Chronically ill-appearing, no acute distress, pleasant cooperative HEAD: Normocephalic, atraumatic. EYES: PERRLA and EOMI. ENT: Mucous membranes tacky NECK: Supple. CHEST: Clear to auscultation. No respiratory distress. HEART: Regular rate and rhythm ABDOMEN: Soft, nontender, nondistended EXTREMITIES: Normal range of motion. No edema. SKIN: Warm, dry, no rash. NEURO: Alert and oriented x1. PSYCH: Normal mood and affect. Course Vital Signs Vital signs: Vital Signs Temperature 97.3 F L 02/16/24 12:56 Pulse Rate 91 02/16/24 12:56 Respiratory Rate 18 02/16/24 12:56 Blood Pressure 161/80 H 02/16/24 12:56 Temperature 99.0 F 02/18/24 05:17 Pulse Rate 96 02/18/24 05:17 Respiratory Rate 20 02/18/24 05:17 Blood Pressure 153/75 H 02/18/24 05:17 Pulse Oximetry 92 02/18/24 05:17 Oxygen Delivery Room Air 02/17/24 20:00 MDM - Weakness MDM Narrative Medical decision making narrative: 83-year-old female presenting with altered mental status. Vitals are stable. Exam remarkable for the above. chest x-ray with persistent left-sided atelectasis. UA is concerning for UTI. Blood work is concerning for EVANGELISTA on CKD. Her baseline creatinine appears to be 2.5, today it is 4.4. IV fluids and antibiotics are ongoing. She requires admission for further management. I spoke with the hospitalist who has accepted her for admission. Differential Diagnosis Differential diagnosis: Likely other ( UTI, EVANGELISTA, dehydration, AMS) Medical Records Attestation: I reviewed the patient's medical records. Lab Data Attestation: I reviewed the patient's lab results. 02/17/24 07:11 02/17/24 07:11 Labs: Lab Results 02/16/24 02/16/24 02/16/24 Range/Units 13:33 14:28 19:53 WBC 9.3 (4.5-10.0) K/mm3 RBC 3.98 L (4.2-5.4) M/mm3 Hgb 10.2 L (12.0-15.0) g/dL Hct 32.7 L (37.0-47.0) % MCV 82.2 (80-100) fl MCH 25.6 L (26-34) pg MCHC 31.2 L (32-36) g/dl RDW 13.8 (11.5-14.5) % Plt Count 324 (150-375) k/mm3 MPV 10.1 (7.4-10.4) fl Immature Gran % (Auto) 0.5 (0-0.5) % Neut % (Auto) 71.1 (45.5-73.1) % Lymph % (Auto) 17.3 L (18.3-44.2) % [place] % (Auto) 9.2 H (2.6-8.5) % Eos % (Auto) 1.5 (0-4.4) % Baso % (Auto) 0.4 (0.2-1.2) % Lymph # (Auto) 1.60 (0.9-3.2) K/mm3 [place] # (Auto) 0.9 H (0.1-0.6) K/mm3 Eos # (Auto) 0.1 (0-0.3) K/mm3 Baso # (Auto) 0.0 (0.0-0.1) K/mm3 Abs Immat Gran (auto) 0.05 H (0.00-0.031) K/mm3 Absolute Neuts (auto) 6.6 (1.3-6.7) K/mm3 Absolute Nucleated RBC 0.000 (0.0-0.012) K/mm3 Nucleated RBC % 0.0 (0.0-0.2) % Sodium 141 (137-145) mmol/L Potassium 4.1 (3.4-5.0) mmol/L Chloride 100 (98-107) mmol/L Carbon Dioxide 27 (22-30) mmol/L Anion Gap 14 H (4-12) mmol/L BUN 70 H D (7-17) mg/dL Creatinine 4.40 H (0.7-1.0) mg/dL Estim Creat Clear Calc 10 ml/min Estimated GFR 10 L (59 - ) Glucose 81 (65-110) mg/dL POC Capillary Glucose 136 H (65-105) mg/dl Calcium 10.3 H (8.4-10.2) mg/dL Magnesium (1.6-2.3) mg/dL Total Bilirubin 0.5 (0.2-1.3) mg/dL AST 31 (14-36) U/L ALT 27 (6-35) U/L Alkaline Phosphatase 106 (38-126) U/L Total Protein 9.0 H (6.3-8.2) g/dL Albumin 4.1 (3.5-5.1) g/dL TSH (Reflex) (0.465-4.68) uIU/mL Urine Color Yellow (Yellow) Urine Appearance Cloudy H (Clear) Urine pH 6.0 (5.0-9.0) Ur Specific [place] 1.013 (1.001-1.035) Urine Protein 2+ H (Negative) mg/dL Urine Glucose (UA) Negative (Negative) mg/dL Urine Ketones Negative (Negative) mg/dL Ur Blood (Man) 1+ H (Negative) Urine Nitrate Negative (Negative) Urine Bilirubin Negative (Negative) Urine Urobilinogen 0.2 (<2.0) mg/dL Leukocyte Esterase Rfl 3+ H (Negative) DORITA/UL Urine RBC 0-2 (0-2) /hpf Urine WBC >100 H (0-3) /hpf Ur Squamous Epith Cells None seen (Few) /hpf Urine Bacteria None seen /hpf Urine Casts 0-2 02/17/24 02/17/24 Range/Units 07:11 07:55 WBC 7.1 (4.5-10.0) K/mm3 RBC 3.35 L (4.2-5.4) M/mm3 Hgb 8.6 L (12.0-15.0) g/dL Hct 30.2 L (37.0-47.0) % MCV 90.1 D (80-100) fl MCH 25.7 L (26-34) pg MCHC 28.5 L (32-36) g/dl RDW 14.1 (11.5-14.5) % Plt Count 276 (150-375) k/mm3 MPV 10.3 (7.4-10.4) fl Immature Gran % (Auto) 0.3 (0-0.5) % Neut % (Auto) 69.3 (45.5-73.1) % Lymph % (Auto) 19.3 (18.3-44.2) % [place] % (Auto) 9.2 H (2.6-8.5) % Eos % (Auto) 1.3 (0-4.4) % Baso % (Auto) 0.6 (0.2-1.2) % Lymph # (Auto) 1.36 (0.9-3.2) K/mm3 [place] # (Auto) 0.7 H (0.1-0.6) K/mm3 Eos # (Auto) 0.1 (0-0.3) K/mm3 Baso # (Auto) 0.0 (0.0-0.1) K/mm3 Abs Immat Gran (auto) 0.02 (0.00-0.031) K/mm3 Absolute Neuts (auto) 4.9 (1.3-6.7) K/mm3 Absolute Nucleated RBC 0.000 (0.0-0.012) K/mm3 Nucleated RBC % 0.0 (0.0-0.2) % Sodium 141 (137-145) mmol/L Potassium 4.3 (3.4-5.0) mmol/L Chloride 105 (98-107) mmol/L Carbon Dioxide 22 (22-30) mmol/L Anion Gap 14 H (4-12) mmol/L BUN 62 H (7-17) mg/dL Creatinine 3.60 H (0.7-1.0) mg/dL Estim Creat Clear Calc 12 ml/min Estimated GFR 12 L (59 - ) Glucose 155 H (65-110) mg/dL POC Capillary Glucose 166 H (65-105) mg/dl Calcium 9.2 (8.4-10.2) mg/dL Magnesium 2.1 (1.6-2.3) mg/dL Total Bilirubin (0.2-1.3) mg/dL AST (14-36) U/L ALT (6-35) U/L Alkaline Phosphatase (38-126) U/L Total Protein (6.3-8.2) g/dL Albumin (3.5-5.1) g/dL TSH (Reflex) 2.280 (0.465-4.68) uIU/mL Urine Color (Yellow) Urine Appearance (Clear) Urine pH (5.0-9.0) Ur Specific [place] (1.001-1.035) Urine Protein (Negative) mg/dL Urine Glucose (UA) (Negative) mg/dL Urine Ketones (Negative) mg/dL Ur Blood (Man) (Negative) Urine Nitrate (Negative) Urine Bilirubin (Negative) Urine Urobilinogen (<2.0) mg/dL Leukocyte Esterase Rfl (Negative) DORITA/UL Urine RBC (0-2) /hpf Urine WBC (0-3) /hpf Ur Squamous Epith Cells (Few) /hpf Urine Bacteria /hpf Urine Casts Imaging Data Radiologist's impression: ITS Impressions Chest X-Ray 02/16/24 14:24 IMPRESSION: 1. Airspace opacities at left lung base with interval improvement, consistent with atelectasis versus pneumonia. Critical Care Time Critical Care Time Critical Care Time: No Discharge Plan Discharge Clinical Impression: Acute kidney injury superimposed on CKD, Altered mental status, UTI (urinary tract infection) Patient Disposition: Still a Patient Condition: Stable
[2024-02-16] MEDS: SODIUM CHLORIDE 0.9% IV 1,000 ML 999 ML IV CONT (16:40)
[2024-02-16] MEDS: cefTRIAXone 2 GM/NS 100 ML 2 GM/100 ML BAG IVPB (16:40)
--- NOTE | 2024-02-16 16:45 | P.HP_ITS ---
H&P: HPI History of Present Illness Date/Time: 02/16/24 16:45 Chief Complaint: Confusion, lethargy. Narrative: This is an 83-year-old female with history of dementia, congestive heart failure, and chronic kidney disease who presented to the emergency department via EMS from [facility] for evaluation of confusion and lethargy. She is reportedly alert and oriented x3 at baseline but is only alert to self at this time. As such she cannot provide any meaningful history and a majority the following is obtained via a review of her electronic medical records. She is known to the hospitalist service from an admission about 1 month ago in which she was treated for pneumonia and acute on chronic kidney disease. According to group home staff the patient has been increasingly confused and lethargic the past two days and has been complaining of dizziness. Today she was reportedly difficult to arouse and was sent in for evaluation. At the time my evaluation she remains confused. She is aware that she is at the hospital. She has no complaints and denies fever, headache, vertigo, visual changes, chest pain, shortness of breath, cough, abdominal pain, nausea, vomiting, diarrhea, and dysuria. In the ED: She was afebrile on arrival with stable vital signs. Labs are significant for hemoglobin of 10.2, BUN 70, creatinine 4.40 (creatinine at time of discharge last month was 2.40), calcium 10.3, total protein 9.0. Urinalysis was positive for 2+ protein, 1+ blood, 3+ leukocyte esterase, and greater than 100 WBC per high-power field. No bacteria were noted on microscopy. Chest x-ray showed airspace opacities at the left lung base with interval improvement. She was given 1 L normal saline and ceftriaxone 2 g and is being admitted in this setting for further treatment and evaluation. Review of Systems Review of Systems: Unable to obtain accurately given clinical condition as detailed above. [facility] Past Medical History Medical History Anemia Anxiety Chronic anemia Chronic kidney disease, stage 4 (severe) Baseline creatinine appears to range between 2.20 and 2.90. Dementia Depression Gastroesophageal reflux disease Hyperlipidemia Hypertension Peripheral vascular disease Type 2 diabetes mellitus Surgical History Surgical History History of bilateral hip arthroplasty History of cholecystectomy History of colectomy History of tonsillectomy Family History Family History Mother Acute myocardial infarction Sibling Hypertension Diabetes mellitus Depression Social History Social History Social History: Healthcare power of deputy prosecuting attorney: Cydney Espinoza. Code status: Full code. Smoking status: Never smoker Alcohol intake: never Substance use: never Substance use type: does not use Do You Feel Safe in your Home?: Yes Lack of Transportation: No Lack of Food: Never True Current Housing: I Have Housing Concerned About Future Housing: No Difficulty Paying Gas/Electric Bills: No Difficulty Paying for Meds: No Currently Unemployed: No Education: Grade School Difficulty w/ Childcare or Family Care: No Additional living arrangements comments: Resident at [facility]. She is and has 4 children. Additional occupation/education comments: Homemaker. Spiritual care concerns: No Meds Home Medications and Allergies Home Medications Medication Instructions Recorded Confirmed Type atorvastatin 10 mg tablet 10 mg PO HS 02/20/22 02/16/24 History carvedilol 3.125 mg tablet 3.125 mg PO BID 02/20/22 02/16/24 History cholecalciferol (vitamin D3) 50 50 mcg PO WEEKLY 02/20/22 02/16/24 History mcg (2,000 unit) capsule (Vitamin D3) famotidine 20 mg tablet 40 mg PO DAILY 02/20/22 02/16/24 History ferrous sulfate 325 mg (65 mg 325 mg PO DAILY 02/20/22 02/16/24 History iron) capsule,extended release furosemide 20 mg tablet 40 mg PO DAILY 02/20/22 02/16/24 History insulin glargine 100 unit/mL (3 10 unit subcut HS 02/20/22 02/16/24 History mL) subcutaneous pen (Lantus Solostar U-100 Insulin) paroxetine HCl 40 mg tablet 40 mg PO DAILY 02/20/22 02/16/24 History linagliptin 5 mg tablet (Tradjenta) 5 mg PO DAILY 04/02/23 02/16/24 History calcitriol 0.25 mcg capsule 0.25 mcg PO DAILY 01/16/24 02/16/24 History insulin lispro 100 unit/mL 1 sliding scale dose subcut 01/16/24 02/16/24 History subcutaneous pen USEASDIRECTD ipratropium 0.5 mg-albuterol 3 mg 3 ml inhalation Q4H PRN Shortness 01/16/24 02/16/24 History (2.5 mg base)/3 mL nebulization Of Breath Or Wheezing soln nifedipine 90 mg tablet,extended 90 mg PO DAILY 01/16/24 02/16/24 History release 24 hr Allergies Allergy/AdvReac Type Severity Reaction Status Date / Time Penicillins Allergy Rash Verified 04/06/23 09:16 Vital Signs Vital Signs - 24 hr 02/16/24 12:56 02/16/24 13:29 02/16/24 14:30 Temperature 97.3 F L Pulse Rate 91 94 92 Respiratory Rate 18 18 Blood Pressure 161/80 H 109/72 Pulse Oximetry 92 Exam Narrative: General: Chronically ill-appearing female in the semi-[place] position in bed. She is nontoxic in appearance. Weight: 90.72 kg. BMI: 35.4. HEENT: PERRL, EOMI. Sclera anicteric. Conjunctiva mildly injected. Dry mucous membranes. She is edentulous. Oropharynx not visualized. Neck: Supple. No nuchal rigidity. Respiratory: Respirations are nonlabored. Lung sounds are a bit coarse but are otherwise clear to auscultation. Cardiovascular: Regular rate and rhythm with S1-S2. Gastrointestinal: Abdomen is soft, nontender, and nondistended with positive bowel sounds. Skin: Warm and dry. Some scabbing over the face. Extremities: No cyanosis or clubbing. Trace nav ankle edema bilaterally. Radial and pedal pulses intact. Neurological: Alert to name and date of . She could not provide me her current age or the year. She was aware that she was at the hospital but could not provide any contacts.. Cranial nerves 2-12 are grossly intact. Speech is clear. No facial asymmetry. Generalized weakness without gross focal findings. She did not fully participate in the neurologic exam. Psychiatric: Pleasantly confused and mostly cooperative. H&P: Results Labs Labs: Short CBC 02/16/24 Range/Units 13:33 WBC 9.3 (4.5-10.0) K/mm3 Hgb 10.2 L (12.0-15.0) g/dL Hct 32.7 L (37.0-47.0) % Plt Count 324 (150-375) k/mm3 BMP 02/16/24 13:33 Sodium 141 Potassium 4.1 Chloride 100 Carbon Dioxide 27 BUN 70 H D Creatinine 4.40 H Glucose 81 Calcium 10.3 H Liver Function 02/16/24 Range/Units 13:33 Total Bilirubin 0.5 (0.2-1.3) mg/dL AST 31 (14-36) U/L ALT 27 (6-35) U/L Alkaline Phosphatase 106 (38-126) U/L Albumin 4.1 (3.5-5.1) g/dL Urine 02/16/24 Range/Units 14:28 Urine Color Yellow (Yellow) Urine Appearance Cloudy H (Clear) Urine pH 6.0 (5.0-9.0) Ur Specific [place] 1.013 (1.001-1.035) Urine Protein 2+ H (Negative) mg/dL Urine Glucose (UA) Negative (Negative) mg/dL Impressions Chest X-Ray 02/16/24 14:24 IMPRESSION: 1. Airspace opacities at left lung base with interval improvement, consistent with atelectasis versus pneumonia. Assessment and Plan Assessment and plan (1) Altered mental status: Code(s): R41.82 - Altered mental status, unspecified Status: Acute (2) Acute on chronic kidney failure: Code(s): N17.9 - Acute kidney failure, unspecified; N18.9 - Chronic kidney disease, unspecified Status: Acute (3) Dehydration: Code(s): E86.0 - Dehydration Status: Acute (4) Pyuria: Code(s): R82.81 - Pyuria Status: Acute (5) Chronic anemia: Code(s): D64.9 - Anemia, unspecified Status: Acute (6) Type 2 diabetes mellitus: Code(s): E11.9 - Type 2 diabetes mellitus without complications Status: Acute (7) Hypertension: Code(s): I10 - Essential (primary) hypertension Status: Acute (8) Gastroesophageal reflux disease: Code(s): K21.9 - Gastro-esophageal reflux disease without esophagitis Status: Acute Plan The patient presented to the emergency department for evaluation of confusion and lethargy as detailed in HPI. Labs, imaging, EKG, and all reports were personally reviewed. She has acute on chronic kidney injury and her increasing confusion may very well be related to uremia. Urinalysis is abnormal though no bacteria were noted on microscopy. As she is afebrile and has a normal WBC count, will hold on initiating further antibiotics pending urine culture. Brain CT is pending. She looks dry on exam and by labs and will be judiciously hydrated overnight with close monitoring of volume status, renal function, and electrolytes. It is unclear if she is over diuresed or is just not eating or drinking well. Hold furosemide for now. [place] catheter has been inserted for strict I/O. Hemoglobin is higher than what it typically runs and I suspect it will fall with hydration. Hold basal insulin as her random glucose was 81 arrival and she has not had much to eat today. Initiate sliding scale insulin, Accu-Cheks, and hypoglycemic protocol. Vital signs were reviewed and they have been stable The rest of her home medications will be reviewed and resumed as appropriate. Findings and treatment plan were discussed with the patient. Questions were solicited and answered to satisfaction. The patient's medical management will be taken over by the hospitalist team in a.m. Quality VTE Prophylaxis VTE prophylaxis: pharmacologic ordered The patient has been admitted under observation status. Hospitalist MIPS Advance Care Plan I have confirmed that the patient's Advanced Care Plan is present, code status is documented, or surrogate decision maker is listed in patient medical record.: Yes Medication Reconciliation I have utilized all available resources to obtain, update and review the patients current medications (includes all prescriptions, OTC, herbals, cannabis, and nutritional supplements).: Yes
[2024-02-16 17:01] VITALS: BP 146/47; PULSE 99; RESP 18; TEMP 37.2; O2SAT 95
[2024-02-16] MEDS: LACTATED RINGERS 1,000 ML 90 ML IV CONT (18:55)
[2024-02-16 19:23] VITALS: BMI 35.4
--- NOTE | 2024-02-16 19:26 | ADMGEN ---
This patient, Sierra Danielle, was admitted to 3 [facility] Surg Room 322-01. Patient/family oriented to hospital policies and general routines including ID bracelet, bed and alarms, visiting hours, pain management, procedures, bathroom and other care routines, personal items, smoking policy, room service/diet, and visiting hours. Information on how to activate the Rapid Response Team has been discussed. Patient/Family are encouraged to report perceived risks to care and to ask questions if they do not understand what they are told or what they should do.
[2024-02-16 19:57] LABS: Glucose Point of Care 136 mg/dl (65-105)
[2024-02-16 20:34] VITALS: BP 151/69; PULSE 95; RESP 17; TEMP 37; O2SAT 93
[2024-02-16] MEDS: HEPARIN SODIUM 5,000 UNITS/ML VIAL 5000 UNITS SUB-Q (21:18)
[2024-02-17 05:06] VITALS: BP 156/85; PULSE 98; RESP 16; TEMP 36.8; O2SAT 96
[2024-02-17] MEDS: LACTATED RINGERS 1,000 ML 90 ML IV CONT ×2 (06:18→16:57)
[2024-02-17 07:41] LABS: Basophils Percent Auto 0.6 % (0.2-1.2); Eosinophils Absolute Auto 0.1 K/mm3 (0-0.3); Eosinophils Percent Auto 1.3 % (0-4.4); Hematocrit 30.2 % (37.0-47.0); Hemoglobin 8.6 g/dL (12.0-15.0); Immature Granulocyte Absolute 0.02 K/mm3 (0.00-0.031); Immature Granulocyte Percent A 0.3 % (0-0.5); Lymphocytes Absolute Auto 1.36 K/mm3 (0.9-3.2); Lymphocytes Percent Auto 19.3 % (18.3-44.2); Mean Corpuscular HGB Conc 28.5 g/dl (32-36); Mean Corpuscular Hemoglobin 25.7 pg (26-34); Mean Corpuscular Volume 90.1 fl (80-100); Mean Platelet Volume 10.3 fl (7.4-10.4); Monocytes Absolute Auto 0.7 K/mm3 (0.1-0.6); Monocytes Percent Auto 9.2 % (2.6-8.5); Neutrophils Absolute Auto 4.9 K/mm3 (1.3-6.7); Neutrophils Percent Auto 69.3 % (45.5-73.1); Platelet Count Result 276 k/mm3 (150-375); Red Blood Count 3.35 M/mm3 (4.2-5.4); Red Cell Distribution Width 14.1 % (11.5-14.5); White Blood Count 7.1 K/mm3 (4.5-10.0)
[2024-02-17 07:59] LABS: Glucose Point of Care 166 mg/dl (65-105)
[2024-02-17 08:00] LABS: Anion Gap 14 mmol/L (4-12); Blood Urea Nitrogen 62 mg/dL (7-17); Calcium 9.2 mg/dL (8.4-10.2); Carbon Dioxide 22 mmol/L (22-30); Chloride 105 mmol/L (98-107); Estimated CRCL calculation 12 ml/min; Estimated Glomerular Filt Rate 12; Glucose 155 mg/dL (65-110); Magnesium 2.1 mg/dL (1.6-2.3); Potassium 4.3 mmol/L (3.4-5.0); Sodium 141 mmol/L (137-145)
[2024-02-17] MEDS: HEPARIN SODIUM 5,000 UNITS/ML VIAL 5000 UNITS SUB-Q ×2 (09:06→22:12)
[2024-02-17 09:46] VITALS: O2SAT 93
[2024-02-17 11:13] VITALS: BMI 35.3
[2024-02-17 11:36] LABS: Glucose Point of Care 165 mg/dl (65-105)
[2024-02-17 14:00] VITALS: BP 165/98; PULSE 99; RESP 18; TEMP 37.2; O2SAT 91
--- NOTE | 2024-02-17 14:31 | P.PNIM_ITS ---
Progress Note: A&P Assessment and Plan (1) UTI (urinary tract infection): Code(s): N39.0 - Urinary tract infection, site not specified Status: Acute Assessment and Plan: * UA showing cloudy appearance, 2+ urine protein, 1+ urine blood, 3+ leukocyte, greater than 100 urine wbc's. * Urine and blood cultures obtained and are pending * Continue Rocephin 2 g (2) Altered mental status: Code(s): R41.82 - Altered mental status, unspecified Status: Acute Assessment and Plan: * Continue neuro checks * Likely secondary to UTI (3) Acute on chronic kidney failure: Code(s): N17.9 - Acute kidney failure, unspecified; N18.9 - Chronic kidney disease, unspecified Status: Acute Assessment and Plan: * Likely secondary to UTI and dehydration * Creatinine 3.60 * Baseline creatinine 2.42-2.70 * Continue to hold Lasix 20 mg tablet (4) Dehydration: Code(s): E86.0 - Dehydration Status: Acute Assessment and Plan: * Patient was given IV fluids while in the ED * Continue IV fluids at 90 mL/hour (5) Chronic anemia: Code(s): D64.9 - Anemia, unspecified Status: Acute Assessment and Plan: * Continue ferrous sulfate * Hemoglobin 8.6 * Continue to trend (6) Type 2 diabetes mellitus: Code(s): E11.9 - Type 2 diabetes mellitus without complications Status: Acute Assessment and Plan: * Blood sugars ranging 155-166 * Hgb A1C 7.5 on 01/16/2024 * Accu checks AC/HS * Moderate dose SSI ordered * hypoglycemic protocol in place * Diabetic diet ordered * Hold Tradjenta (7) Hypertension: Code(s): I10 - Essential (primary) hypertension Status: Acute Assessment and Plan: * Blood pressure 146/47 to 156/85 * Continue nifedipine and Coreg (8) Gastroesophageal reflux disease: Code(s): K21.9 - Gastro-esophageal reflux disease without esophagitis Status: Acute Assessment and Plan: * Start Protonix Time Spent With Patient Time with patient: 25 - 35 minutes Subjective Date/time seen: 02/17/24 14:31 Interval history: Interval history: This is an 83-year-old female who presented to the hospital [facility] for evaluation of confusion and lethargy. Workup in the hospital included chest x-ray shown airspace opacities at left lung base with interval improvement, consistent with atelectasis versus pneumonia. Head CT was negative for any acute findings. Initial labs showed a normal white blood cell count of 9.3, RBC 3.98, hemoglobin 10.2, creatinine 4.40. UA showed cloudy joya, 2+ urine protein, 1+ urine blood, 3+ leukocytes, greater than 100 urine WBC. Blood and urine cultures were obtained and are pending. Patient was started on Rocephin 2 g and given 1 L of normal saline while in the ED. Subjective: Labs and imaging reviewed. Patient confused. Review of Systems Review of Systems: All systems reviewed & are unremarkable except as noted in HPI and below Constitutional: Constitutional: Reports as per HPI and Reports no additional constitutional complaints Eyes: Eyes: Reports as per HPI and Reports no additional eye complaints ENT: Reports system reviewed and no additional complaints, except as documented and Reports as per HPI Cardiovascular: Cardiovascular: Reports as per HPI and Reports no additional cardiovascular complaints Respiratory: Respiratory: Reports as per HPI and Reports no additional respiratory complaints Gastrointestinal: Gastrointestinal: Reports as per HPI and Reports no additional gastrointestinal complaints Genitourinary: Genitourinary: Reports no additional female genitourinary complaints and Reports as per HPI Musculoskeletal: Musculoskeletal: Reports no additional musculoskeletal complaints and Reports as per HPI Integumentary/Breasts: Skin/Breast: Reports system reviewed and no additional complaints, except as docu and Reports as per HPI Neurologic: Reports system reviewed and no additional complaints, except as documented and Reports as per HPI Psychiatric: Psychiatric: Reports no additional psychiatric complaints and Reports as per HPI Exam Narrative: General: In no acute distress, well nourished Head: atraumatic, no encephalopathy Eyes: PERRLA, sclera clear ENT: moist mucous membranes, nasal passages clear Neck: supple, no JVD, no adenopathy, trachea midline Cardiac: Normal S1 and S2. No murmur, gallops or friction rubs, peripheral pulses intact. Respiratory: Lungs clear to auscultation, no adventitious lung sounds, currently on room air Gastrointestinal: soft, non-distended, non-tender, normoactive bowel sounds. : voiding without difficulty. Extremities: moves all extremities well, no edema Skin: clean, dry, intact. No wounds or lesions. Neuro: Confused Psych: interactive Objective Data Vital Signs Vital Signs: Vital Signs - 24 hr 02/16/24 17:01 02/16/24 20:34 02/16/24 20:00 Temperature 99.0 F 98.6 F Pulse Rate 99 95 Respiratory Rate 18 17 Blood Pressure 146/47 H 151/69 H Pulse Oximetry 95 93 Oxygen Delivery Room Air 02/17/24 05:06 02/17/24 09:46 02/17/24 08:00 Temperature 98.2 F Pulse Rate 98 Respiratory Rate 16 Blood Pressure 156/85 H Pulse Oximetry 96 93 Oxygen Delivery Room Air Room Air Intake/Output Intake/Output: Intake & Output 02/14/24 02/15/24 02/16/24 02/17/24 23:59 23:59 23:59 23:59 Intake Total 2240 Output Total 75 650 Balance -75 1590 Meds/Results Medications: Active Medications Generic Name Dose Route Start Last Admin Trade Name Freq PRN Reason Stop Dose Admin Acetaminophen 650 mg 02/16/24 17:00 Acetaminophen 325 Mg Tablet PO Q6H PRN Mild Pain (1-3) or Fever Dextrose 12.5 gm 02/16/24 17:00 Dextrose 50% 25 Gm/50 Ml Syringe IV PUSH PRN PRN Hypoglycemia Protocol Glucagon 1 mg 02/16/24 17:00 Glucagon For Inj 1 Mg Vial IM PRN PRN Hypoglycemia Protocol Glucose 15 gm 02/16/24 17:00 Glucose Oral Gel 15 Gm Of Glucse In 37.5 Gm Tube PO PRN PRN Hypoglycemia Protocol Heparin Sodium (Porcine) 5,000 units 02/16/24 21:00 02/17/24 09:06 Heparin Sodium 5,000 Units/Ml Vial SUB-Q 5,000 units Q12HR SURJIT Administration Dextrose 1,000 mls @ 100 mls/hr 02/16/24 17:00 Dextrose 5% 1,000 Ml IVPB PRN PRN Hypoglycemia Protocol Lactated Ringer's 1,000 mls @ 90 mls/hr 02/16/24 17:05 02/17/24 06:18 Lr - Lactated Ringers Iv IV CONT 90 mls/hr .Q11H7M SURJIT Administration Insulin Aspart 3 - 6 units 02/16/24 17:00 02/17/24 09:07 Insulin Aspart (*Bkc) 100 Units/Ml SUB-Q Not Given TIDWM SURJIT Protocol Insulin Aspart 1 - 3 units 02/16/24 21:00 02/16/24 21:19 Insulin Aspart (*Bkc) 100 Units/Ml SUB-Q Not Given HS [facility] Protocol Radiology Results: ITS Impressions Chest X-Ray 02/16/24 14:24 IMPRESSION: 1. Airspace opacities at left lung base with interval improvement, consistent with atelectasis versus pneumonia. Head CT 02/16/24 17:10 IMPRESSION: No acute intracranial process. Labs Labs: Laboratory Results - last 24 hr 02/16/24 02/16/24 02/17/24 14:28 19:53 07:11 WBC 7.1 RBC 3.35 L Hgb 8.6 L Hct 30.2 L MCV 90.1 D MCH 25.7 L MCHC 28.5 L RDW 14.1 Plt Count 276 MPV 10.3 Immature Gran % (Auto) 0.3 Neut % (Auto) 69.3 Lymph % (Auto) 19.3 Worth % (Auto) 9.2 H Eos % (Auto) 1.3 Baso % (Auto) 0.6 Lymph # (Auto) 1.36 Worth # (Auto) 0.7 H Eos # (Auto) 0.1 Baso # (Auto) 0.0 Abs Immat Gran (auto) 0.02 Absolute Neuts (auto) 4.9 Absolute Nucleated RBC 0.000 Nucleated RBC % 0.0 Sodium 141 Potassium 4.3 Chloride 105 Carbon Dioxide 22 Anion Gap 14 H BUN 62 H Creatinine 3.60 H Estim Creat Clear Calc 12 Estimated GFR 12 L Glucose 155 H POC Capillary Glucose 136 H Calcium 9.2 Magnesium 2.1 TSH (Reflex) 2.280 Urine Color Yellow Urine Appearance Cloudy H Urine pH 6.0 Ur Specific Chicken 1.013 Urine Protein 2+ H Urine Glucose (UA) Negative Urine Ketones Negative Ur Blood (Man) 1+ H Urine Nitrate Negative Urine Bilirubin Negative Urine Urobilinogen 0.2 Leukocyte Esterase Rfl 3+ H Urine RBC 0-2 Urine WBC >100 H Ur Squamous Epith Cells None seen Urine Bacteria None seen Urine Casts 0-2 02/17/24 02/17/24 07:55 11:24 WBC RBC Hgb Hct MCV MCH MCHC RDW Plt Count MPV Immature Gran % (Auto) Neut % (Auto) Lymph % (Auto) Worth % (Auto) Eos % (Auto) Baso % (Auto) Lymph # (Auto) Worth # (Auto) Eos # (Auto) Baso # (Auto) Abs Immat Gran (auto) Absolute Neuts (auto) Absolute Nucleated RBC Nucleated RBC % Sodium Potassium Chloride Carbon Dioxide Anion Gap BUN Creatinine Estim Creat Clear Calc Estimated GFR Glucose POC Capillary Glucose 166 H 165 H Calcium Magnesium TSH (Reflex) Urine Color Urine Appearance Urine pH Ur Specific Chicken Urine Protein Urine Glucose (UA) Urine Ketones Ur Blood (Man) Urine Nitrate Urine Bilirubin Urine Urobilinogen Leukocyte Esterase Rfl Urine RBC Urine WBC Ur Squamous Epith Cells Urine Bacteria Urine Casts Quality VTE Prophylaxis VTE prophylaxis: pharmacologic ordered
[2024-02-17 16:42] LABS: Glucose Point of Care 143 mg/dl (65-105)
[2024-02-17] MEDS: NIFEdipine 30 MG TAB.ER.24 90 MG PO (16:55)
[2024-02-17] MEDS: cefTRIAXone 2 GM/NS 100 ML 2 GM/100 ML BAG IVPB (16:56)
[2024-02-17 21:38] LABS: Glucose Point of Care 184 mg/dl (65-105)
[2024-02-17 21:40] VITALS: BP 171/84; PULSE 105; RESP 20; TEMP 37.4; O2SAT 90
[2024-02-17] MEDS: carvediloL 3.125 MG TABLET PO (22:11)
[2024-02-17] MEDS: ATORVASTATIN 10 MG TABLET PO (22:12)
[2024-02-17] MEDS: INSULIN GLARGINE (*BKC) 100 UNITS/ML 10 UNITS SUB-Q (22:12)
[2024-02-18] MEDS: LACTATED RINGERS 1,000 ML 90 ML IV CONT ×2 (04:57→16:59)
--- NOTE | 2024-02-18 05:13 | PC.NURSE ---
Spoke with Dr. Watson at this time. Patient Spo2 88% on RA. 1L O2 per NC applied and O2 92%. Dr. Watson says to notify day team and they can deal with it when they get here.
[2024-02-18 05:17] VITALS: BP 153/75; PULSE 96; RESP 20; TEMP 37.2; O2SAT 92
[2024-02-18] MEDS: PANTOPRAZOLE 40 MG TABLET PO (10:09)
[2024-02-18] MEDS: calcitrioL 0.25 MCG CAPSULE PO (10:09)
[2024-02-18] MEDS: FERROUS SULFATE 325 MG TABLET DR BY MOUTH (10:09)
[2024-02-18] MEDS: carvediloL 3.125 MG TABLET PO (10:09)
[2024-02-18] MEDS: NIFEdipine 30 MG TAB.ER.24 90 MG PO (10:09)
[2024-02-18] MEDS: HEPARIN SODIUM 5,000 UNITS/ML VIAL 5000 UNITS SUB-Q (10:09)
[2024-02-18] MEDS: PARoxetine 20 MG TABLET 40 MG PO (10:09)
[2024-02-18 10:20] LABS: Glucose Point of Care 155 mg/dl (65-105)
[2024-02-18 11:51] LABS: Glucose Point of Care 155 mg/dl (65-105)
[2024-02-18] MEDS: cefTRIAXone 2 GM/NS 100 ML 2 GM/100 ML BAG IVPB (12:34)
--- NOTE | 2024-02-18 13:00 | PM.IMPN ---
Progress Note: A&P Assessment and Plan (1) UTI (urinary tract infection): Code(s): N39.0 - Urinary tract infection, site not specified Status: Acute Assessment and Plan: UA showing cloudy appearance, 2+ urine protein, 1+ urine blood, 3+ leukocyte, greater than 100 urine wbc's. Urine and blood cultures obtained and are pending Continue Rocephin 2 g Follow CBC, check CRP, ESR (2) Altered mental status: Code(s): R41.82 - Altered mental status, unspecified Status: Acute Assessment and Plan: Continue neuro checks Likely secondary to UTI Head CT no acute findings (3) Acute on chronic kidney failure: Code(s): N17.9 - Acute kidney failure, unspecified; N18.9 - Chronic kidney disease, unspecified Status: Acute Assessment and Plan: Likely secondary to UTI and dehydration Creatinine 3.60 Baseline creatinine 2.42-2.70 Continue to hold Lasix 20 mg tablet (4) Dehydration: Code(s): E86.0 - Dehydration Status: Acute Assessment and Plan: Patient was given IV fluids while in the ED Continue IV fluids at 90 mL/hour (5) Chronic anemia: Code(s): D64.9 - Anemia, unspecified Status: Acute Assessment and Plan: Continue ferrous sulfate Hemoglobin 8.6 Continue to trend (6) Type 2 diabetes mellitus: Code(s): E11.9 - Type 2 diabetes mellitus without complications Status: Acute Assessment and Plan: Blood sugars ranging 155-166 Hgb A1C 7.5 on 01/16/2024 Accu checks AC/HS Moderate dose SSI ordered hypoglycemic protocol in place Diabetic diet ordered Hold Tradjenta (7) Hypertension: Code(s): I10 - Essential (primary) hypertension Status: Acute Assessment and Plan: Blood pressure 146/47 to 156/85 Continue nifedipine and Coreg (8) Gastroesophageal reflux disease: Code(s): K21.9 - Gastro-esophageal reflux disease without esophagitis Status: Acute Assessment and Plan: Start Protonix Time Spent With Patient Time: 45 minutes Subjective Date/time seen: 02/18/24 13:05 Interval history: Low grade temps. Issue overnight with IV infusion of Ceftriaxone and only received half of the dose. Not feeling well generally. Not eating well. Exam Narrative: General: In no acute distress, well nourished Head: atraumatic, no encephalopathy Eyes: PERRLA, sclera clear ENT: moist mucous membranes, nasal passages clear Neck: supple, no JVD, no adenopathy, trachea midline Cardiac: Normal S1 and S2. No murmur, gallops or friction rubs, peripheral pulses intact. Respiratory: Lungs clear to auscultation, no adventitious lung sounds, currently on room air Gastrointestinal: soft, non-distended, non-tender, normoactive bowel sounds. : voiding without difficulty. Extremities: moves all extremities well, no edema Skin: clean, dry, intact. No wounds or lesions. Neuro: Confused Psych: interactive Objective Data Vital Signs Vital Signs: Vital Signs - 24 hr 02/18/24 14:00 02/18/24 21:27 02/18/24 22:18 Temperature 98.4 F 99.7 F H Pulse Rate 89 92 72 Respiratory Rate 18 12 Blood Pressure 134/50 L 134/55 L Pulse Oximetry 90 92 Oxygen Delivery Oxygen Flow Rate 02/18/24 20:00 02/19/24 06:00 Temperature 99.2 F Pulse Rate 89 Respiratory Rate 18 Blood Pressure 147/71 H Pulse Oximetry 94 92 Oxygen Delivery Nasal Cannula Oxygen Flow Rate 3 Intake/Output Intake/Output: Intake & Output 02/16/24 02/17/24 02/18/24 02/19/24 23:59 23:59 23:59 23:59 Intake Total 3435.5 2940 1005.5 Output Total 75 2150 1150 1500 Balance -75 1285.5 1790 -494.5 Meds/Results Medications: Active Medications Generic Name Dose Route Start Last Admin Trade Name Freq PRN Reason Stop Dose Admin Acetaminophen 650 mg 02/16/24 17:00 Acetaminophen 325 Mg Tablet PO Q6H PRN Mild Pain (1-3) or Fever Atorvastatin Calcium 10 mg 02/17/24 21:00 02/18/24 22:18 Atorvastatin 10 Mg Tablet PO Not Given HS SURJIT Calcitriol 0.25 mcg 02/18/24 09:00 02/18/24 10:09 Calcitriol 0.25 Mcg Capsule PO 0.25 mcg DAILY SURJIT Administration Carvedilol 3.125 mg 02/17/24 21:00 02/18/24 22:18 Carvedilol 3.125 Mg Tablet PO Not Given Q12HR SURJIT Dextrose 12.5 gm 02/16/24 17:00 Dextrose 50% 25 Gm/50 Ml Syringe IV PUSH PRN PRN Hypoglycemia Protocol Ferrous Sulfate 325 mg 02/18/24 09:00 02/18/24 10:09 Ferrous Sulfate [address] BY MOUTH 325 mg DAILY SURJIT Administration Glucagon 1 mg 02/16/24 17:00 Glucagon For Inj 1 Mg Vial IM PRN PRN Hypoglycemia Protocol Glucose 15 gm 02/16/24 17:00 Glucose Oral Gel 15 Gm Of Glucse In 37.5 Gm Tube PO PRN PRN Hypoglycemia Protocol Heparin Sodium (Porcine) 5,000 units 02/16/24 21:00 02/18/24 22:18 Heparin Sodium 5,000 Units/Ml Vial SUB-Q Not Given Q12HR SURJIT Dextrose 1,000 mls @ 100 mls/hr 02/16/24 17:00 Dextrose 5% 1,000 Ml IVPB PRN PRN Hypoglycemia Protocol Lactated Ringer's 1,000 mls @ 90 mls/hr 02/16/24 17:05 02/19/24 01:56 Lr - Lactated Ringers Iv IV CONT 90 mls/hr .Q11H7M SURJIT Administration Ceftriaxone Sodium 2 gm in 100 mls @ 200 mls/hr 02/18/24 11:00 02/18/24 13:04 Rocephin 2 Gm/Ns 100 Ml IVPB Infused Q24H SURJIT Infusion Insulin Aspart 3 - 6 units 02/16/24 17:00 02/18/24 17:58 Insulin Aspart (*Bkc) 100 Units/Ml SUB-Q Not Given TIDWM [facility] Protocol Insulin Aspart 1 - 3 units 02/16/24 21:00 02/18/24 22:19 Insulin Aspart (*Bkc) 100 Units/Ml SUB-Q Not Given HS [facility] [place] Protocol Insulin Glargine 10 units 02/17/24 21:00 02/18/24 22:19 Insulin Glargine (*Bkc) 100 Units/Ml SUB-Q Not Given HS [facility] [place] Nifedipine 90 mg 02/17/24 14:55 02/18/24 10:09 Nifedipine 30 Mg Tab.Er.24 PO 90 mg DAILY SURJIT Administration Pantoprazole Sodium 40 mg 02/18/24 09:00 02/18/24 10:09 Pantoprazole 40 Mg Tablet PO 40 mg QAM SURJIT Administration Paroxetine HCl 40 mg 02/18/24 09:00 02/18/24 10:09 Paroxetine 20 Mg Tablet PO 40 mg DAILY SURJIT Administration Radiology Results: ITS Impressions Chest X-Ray 02/16/24 14:24 IMPRESSION: 1. Airspace opacities at left lung base with interval improvement, consistent with atelectasis versus pneumonia. Head CT 02/16/24 17:10 IMPRESSION: No acute intracranial process. Labs Labs: Laboratory Results - last 24 hr 02/18/24 02/18/24 02/18/24 08:00 11:44 16:48 POC Capillary Glucose 155 H 155 H 188 H 02/18/24 19:15 POC Capillary Glucose 222 H Quality VTE Prophylaxis VTE prophylaxis: pharmacologic ordered
[2024-02-18 14:00] VITALS: BP 134/50; PULSE 89; RESP 18; TEMP 36.9; O2SAT 90
[2024-02-18 16:55] LABS: Glucose Point of Care 188 mg/dl (65-105)
[2024-02-18 19:26] LABS: Glucose Point of Care 222 mg/dl (65-105)
[2024-02-18 20:00] VITALS: O2SAT 94
[2024-02-18 21:27] VITALS: BP 134/55; PULSE 92; RESP 12; TEMP 37.6; O2SAT 92
[2024-02-18 22:18] VITALS: PULSE 72
[2024-02-19] MEDS: LACTATED RINGERS 1,000 ML 90 ML IV CONT ×2 (01:56→21:32)
[2024-02-19 06:00] VITALS: BP 147/71; PULSE 89; RESP 18; TEMP 37.3; O2SAT 92
[2024-02-19 07:21] LABS: Basophils Percent Auto 0.7 % (0.2-1.2); Eosinophils Absolute Auto 0.2 K/mm3 (0-0.3); Eosinophils Percent Auto 3.5 % (0-4.4); Hematocrit 27.3 % (37.0-47.0); Hemoglobin 8.1 g/dL (12.0-15.0); Immature Granulocyte Absolute 0.03 K/mm3 (0.00-0.031); Immature Granulocyte Percent A 0.5 % (0-0.5); Lymphocytes Absolute Auto 1.69 K/mm3 (0.9-3.2); Lymphocytes Percent Auto 28.1 % (18.3-44.2); Mean Corpuscular HGB Conc 29.7 g/dl (32-36); Mean Corpuscular Hemoglobin 25.3 pg (26-34); Mean Corpuscular Volume 85.3 fl (80-100); Mean Platelet Volume 10.4 fl (7.4-10.4); Monocytes Absolute Auto 0.7 K/mm3 (0.1-0.6); Monocytes Percent Auto 10.8 % (2.6-8.5); Neutrophils Absolute Auto 3.4 K/mm3 (1.3-6.7); Neutrophils Percent Auto 56.4 % (45.5-73.1); Platelet Count Result 252 k/mm3 (150-375); Red Cell Distribution Width 13.9 % (11.5-14.5)
[2024-02-19 07:39] LABS: Anion Gap 9 mmol/L (4-12); Blood Urea Nitrogen 44 mg/dL (7-17); Calcium 8.7 mg/dL (8.4-10.2); Carbon Dioxide 27 mmol/L (22-30); Chloride 106 mmol/L (98-107); Estimated CRCL calculation 16 ml/min; Estimated Glomerular Filt Rate 18; Glucose 151 mg/dL (65-110); Potassium 4.1 mmol/L (3.4-5.0); Sodium 142 mmol/L (137-145)
[2024-02-19 07:49] LABS: CRP 16.9 mg/dL (<1.0)
[2024-02-19 08:01] LABS: Glucose Point of Care 150 mg/dl (65-105)
[2024-02-19 09:05] LABS: Platelet Estimate Adequate (Adequate)
[2024-02-19 09:07] LABS: Anisocytosis 1+; Tear Drop Cells 1+
[2024-02-19 09:08] LABS: Schistocytes None Seen
[2024-02-19] MEDS: cefTRIAXone 2 GM/NS 100 ML 2 GM/100 ML BAG IVPB (09:38)
[2024-02-19] MEDS: PARoxetine 20 MG TABLET 40 MG PO (09:38)
[2024-02-19] MEDS: HEPARIN SODIUM 5,000 UNITS/ML VIAL 5000 UNITS SUB-Q ×2 (09:38→21:30)
[2024-02-19] MEDS: NIFEdipine 30 MG TAB.ER.24 90 MG PO (09:38)
[2024-02-19 09:39] VITALS: PULSE 88
[2024-02-19] MEDS: FERROUS SULFATE 325 MG TABLET DR BY MOUTH (09:39)
[2024-02-19] MEDS: calcitrioL 0.25 MCG CAPSULE PO (09:39)
[2024-02-19] MEDS: PANTOPRAZOLE 40 MG TABLET PO (09:39)
[2024-02-19] MEDS: carvediloL 3.125 MG TABLET PO ×2 (09:39→21:34)
[2024-02-19 10:24] LABS: Erythrocyte Sedimentation Rate 8 mm/hr (0-20)
[2024-02-19 11:51] LABS: Glucose Point of Care 159 mg/dl (65-105)
--- NOTE | 2024-02-19 12:35 | PCNFU ---
Nutrition Follow-Up Complete: Increased protein energy needs related to wound healing as evidenced by stage II pressure injury to heel Adequate PO intake at least 75% meals and supplements to support wound healing - Not meeting goal. Continue with same goal Goal: Pt current nutrition is Diabetic consistent carbs. Intakes 0-25%. Glucerna BID for additional 220 kcal and 9 g protein each. Nutrition recommendation: Add oral nutrition supplement: Toño BID for additional 90 kcal and 2.5 g protein each for wound healing support Last recorded weight is 89 kg. Bowel Motility: No bowel movements Labs Reviewed: Hgb 8.1, Hct 27.3, BUN 44, Cre 2.6, Glu 151 Meds Noted: Rocephin, LR, novolog, lantus, protonix Skin: Stage 2 pressure injury L heel Additional Notes: Not eating much related to dementia, UTI. Will add supplements for wound healing Monitoring intakes, weights, labs, wound healing, supplement tolerance, plan of care FOllow up in 5 days
[2024-02-19 14:00] VITALS: BP 162/70; PULSE 84; RESP 16; TEMP 36.8; O2SAT 96
[2024-02-19 16:10] LABS: Glucose Point of Care 165 mg/dl (65-105)
--- NOTE | 2024-02-19 18:25 | P.PNIM_ITS ---
Progress Note: A&P Assessment and Plan (1) UTI (urinary tract infection): Code(s): N39.0 - Urinary tract infection, site not specified Status: Acute Assessment and Plan: * UA showing cloudy appearance, 2+ urine protein, 1+ urine blood, 3+ leukocyte, greater than 100 urine wbc's. * Urine culture growing MDR Proteus. * Blood cultures NGTD. * Continue Rocephin 2 g. * WBC's currently wnl and no fevers noted. * Continue to follow blood cultures. (2) Altered mental status: Code(s): R41.82 - Altered mental status, unspecified Status: Acute Assessment and Plan: * Likely secondary to UTI * Head CT with no acute findings. * Continue to monitor changes in mentation. * Assist with care. (3) Acute on chronic kidney failure: Code(s): N17.9 - Acute kidney failure, unspecified; N18.9 - Chronic kidney disease, unspecified Status: Acute Assessment and Plan: * Likely secondary to UTI and dehydration * Creatinine continues to trend down with IVF hydration. * Continue to hold Lasix 20 mg tablet. * Continue to monitor renal function closely. * Avoid nephrotoxins. (4) Dehydration: Code(s): E86.0 - Dehydration Status: Acute Assessment and Plan: * Patient was given IV fluids while in the ED * Continue IV fluids now at 90 mL/hour * Further mgt as #3 above. (5) Chronic anemia: Code(s): D64.9 - Anemia, unspecified Status: Acute Assessment and Plan: * Continue ferrous sulfate supplementation. * Hemoglobin trended down today; 8.6>>8.1 * Possibly some element of hemodilution from IVF hydration. * Continue to trend. (6) Type 2 diabetes mellitus: Code(s): E11.9 - Type 2 diabetes mellitus without complications Status: Acute Assessment and Plan: * Blood sugars fairly well controlled, < 200. * Hgb A1C 7.5 on 01/16/2024 * Continue accu checks AC/HS * Moderate dose SSI * hypoglycemic protocol in place * Diabetic diet ordered * Hold Tradjenta (7) Hypertension: Code(s): I10 - Essential (primary) hypertension Status: Acute Assessment and Plan: * Blood pressure fairly controlled. * Continue nifedipine and Coreg (8) Gastroesophageal reflux disease: Code(s): K21.9 - Gastro-esophageal reflux disease without esophagitis Status: Acute Assessment and Plan: * Patient on Protonix Time Spent With Patient Time with patient: 25 - 35 minutes Subjective Date/time seen: 02/19/24 10:25 Patient calm on bedrest and slightly confused. denies pain or other acute distress. Interval history: Patient calm on bedrest, pleasantly confused but in no acute distress. Review of Systems Review of Systems: Unable to obtain accurately given clinical condition as detailed above. All systems reviewed & are unremarkable except as noted in HPI and below Constitutional: Constitutional: Reports as per HPI and Reports no additional constitutional complaints Eyes: Eyes: Reports as per HPI and Reports no additional eye complaints ENT: Reports system reviewed and no additional complaints, except as documented and Reports as per HPI Cardiovascular: Cardiovascular: Reports as per HPI and Reports no additional cardiovascular complaints Respiratory: Respiratory: Reports as per HPI and Reports no additional respiratory complaints Gastrointestinal: Gastrointestinal: Reports as per HPI and Reports no additional gastrointestinal complaints Genitourinary: Genitourinary: Reports no additional female genitourinary complaints and Reports as per HPI Musculoskeletal: Musculoskeletal: Reports no additional musculoskeletal complaints and Reports as per HPI Integumentary/Breasts: Skin/Breast: Reports system reviewed and no additional complaints, except as docu and Reports as per HPI Neurologic: Reports system reviewed and no additional complaints, except as documented and Reports as per HPI Psychiatric: Psychiatric: Reports no additional psychiatric complaints and Reports as per HPI Exam Narrative: General: In no acute distress, well nourished Head: atraumatic. Eyes: PERRLA, sclera clear ENT: moist mucous membranes, nasal passages clear Neck: supple, no JVD, no adenopathy, trachea midline Cardiac: Normal S1 and S2. No murmur, gallops or friction rubs, peripheral pulses intact. Respiratory: Lungs clear to auscultation, no adventitious lung sounds, currently on room air Gastrointestinal: soft, non-distended, non-tender, normoactive bowel sounds. : voiding without difficulty. Extremities: moves all extremities well, no edema Skin: clean, dry, intact. No wounds or lesions. Neuro: Confused Psych: interactive Objective Data Vital Signs Vital Signs: Vital Signs - 24 hr 02/18/24 21:27 02/18/24 22:18 02/18/24 20:00 Temperature 99.7 F H Pulse Rate 92 72 Respiratory Rate 12 Blood Pressure 134/55 L Pulse Oximetry 92 94 Oxygen Delivery Nasal Cannula Oxygen Flow Rate 3 02/19/24 06:00 02/19/24 09:39 02/19/24 14:00 Temperature 99.2 F 98.3 F Pulse Rate 89 88 84 Respiratory Rate 18 16 Blood Pressure 147/71 H 162/70 H Pulse Oximetry 92 96 Oxygen Delivery Oxygen Flow Rate Intake/Output Intake/Output: Intake & Output 02/16/24 02/17/24 02/18/24 02/19/24 23:59 23:59 23:59 23:59 Intake Total 3435.5 2940 1705.5 Output Total 75 2150 1150 2650 Balance -75 1285.5 1790 -944.5 Meds/Results Medications: Active Medications Generic Name Dose Route Start Last Admin Trade Name Freq PRN Reason Stop Dose Admin Acetaminophen 650 mg 02/16/24 17:00 Acetaminophen 325 Mg Tablet PO Q6H PRN Mild Pain (1-3) or Fever Atorvastatin Calcium 10 mg 02/17/24 21:00 02/18/24 22:18 Atorvastatin 10 Mg Tablet PO Not Given HS SURJIT Calcitriol 0.25 mcg 02/18/24 09:00 02/19/24 09:39 Calcitriol 0.25 Mcg Capsule PO 0.25 mcg DAILY SURJIT Administration Carvedilol 3.125 mg 02/17/24 21:00 02/19/24 09:39 Carvedilol 3.125 Mg Tablet PO 3.125 mg Q12HR SURJIT Administration Dextrose 12.5 gm 02/16/24 17:00 Dextrose 50% 25 Gm/50 Ml Syringe IV PUSH PRN PRN Hypoglycemia Protocol Ferrous Sulfate 325 mg 02/18/24 09:00 02/19/24 09:39 Ferrous Sulfate [address] BY MOUTH 325 mg DAILY SURJIT Administration Glucagon 1 mg 02/16/24 17:00 Glucagon For Inj 1 Mg Vial IM PRN PRN Hypoglycemia Protocol Glucose 15 gm 02/16/24 17:00 Glucose Oral Gel 15 Gm Of Glucse In 37.5 Gm Tube PO PRN PRN Hypoglycemia Protocol Heparin Sodium (Porcine) 5,000 units 02/16/24 21:00 02/19/24 09:38 Heparin Sodium 5,000 Units/Ml Vial SUB-Q 5,000 units Q12HR SURJIT Administration Dextrose 1,000 mls @ 100 mls/hr 02/16/24 17:00 Dextrose 5% 1,000 Ml IVPB PRN PRN Hypoglycemia Protocol Lactated Ringer's 1,000 mls @ 90 mls/hr 02/16/24 17:05 02/19/24 01:56 Lr - Lactated Ringers Iv IV CONT 90 mls/hr .Q11H7M SURJIT Administration Ceftriaxone Sodium 2 gm in 100 mls @ 200 mls/hr 02/18/24 11:00 02/19/24 10:08 Rocephin 2 Gm/Ns 100 Ml IVPB Infused Q24H SURJIT Infusion Insulin Aspart 3 - 6 units 02/16/24 17:00 02/19/24 17:47 Insulin Aspart (*Bkc) 100 Units/Ml SUB-Q Not Given TIDWM SURJIT Protocol Insulin Aspart 1 - 3 units 02/16/24 21:00 02/18/24 22:19 Insulin Aspart (*Bkc) 100 Units/Ml SUB-Q Not Given HS SURJIT Protocol Insulin Glargine 10 units 02/17/24 21:00 02/18/24 22:19 Insulin Glargine (*Bkc) 100 Units/Ml SUB-Q Not Given HS SURJIT Nifedipine 90 mg 02/17/24 14:55 02/19/24 09:38 Nifedipine 30 Mg Tab.Er.24 PO 90 mg DAILY SURJIT Administration Pantoprazole Sodium 40 mg 02/18/24 09:00 02/19/24 09:39 Pantoprazole 40 Mg Tablet PO 40 mg QAM SURJIT Administration Paroxetine HCl 40 mg 02/18/24 09:00 02/19/24 09:38 Paroxetine 20 Mg Tablet PO 40 mg DAILY SURJIT Administration Radiology Results: ITS Impressions Chest X-Ray 02/16/24 14:24 IMPRESSION: 1. Airspace opacities at left lung base with interval improvement, consistent with atelectasis versus pneumonia. Head CT 02/16/24 17:10 IMPRESSION: No acute intracranial process. Labs Labs: Laboratory Results - last 24 hr 02/18/24 02/19/24 02/19/24 19:15 06:51 07:36 WBC 6.0 RBC 3.20 L Hgb 8.1 L Hct 27.3 L MCV 85.3 D MCH 25.3 L MCHC 29.7 L RDW 13.9 Plt Count 252 MPV 10.4 Immature Gran % (Auto) 0.5 Neut % (Auto) 56.4 Lymph % (Auto) 28.1 [place] % (Auto) 10.8 H Eos % (Auto) 3.5 Baso % (Auto) 0.7 Lymph # (Auto) 1.69 [place] # (Auto) 0.7 H Eos # (Auto) 0.2 Baso # (Auto) 0.0 Abs Immat Gran (auto) 0.03 Absolute Neuts (auto) 3.4 Absolute Nucleated RBC 0.000 Nucleated RBC % 0.0 Platelet Estimate Adequate Anisocytosis 1+ Tear Drop Cells 1+ Schistocytes None seen ESR 8 Sodium 142 Potassium 4.1 Chloride 106 Carbon Dioxide 27 Anion Gap 9 BUN 44 H D Creatinine 2.60 H Estim Creat Clear Calc 16 Estimated GFR 18 L Glucose 151 H POC Capillary Glucose 222 H 150 H Calcium 8.7 C-Reactive Protein 16.9 H 02/19/24 02/19/24 11:45 16:02 WBC RBC Hgb Hct MCV MCH MCHC RDW Plt Count MPV Immature Gran % (Auto) Neut % (Auto) Lymph % (Auto) [place] % (Auto) Eos % (Auto) Baso % (Auto) Lymph # (Auto) [place] # (Auto) Eos # (Auto) Baso # (Auto) Abs Immat Gran (auto) Absolute Neuts (auto) Absolute Nucleated RBC Nucleated RBC % Platelet Estimate Anisocytosis Tear Drop Cells Schistocytes ESR Sodium Potassium Chloride Carbon Dioxide Anion Gap BUN Creatinine Estim Creat Clear Calc Estimated GFR Glucose POC Capillary Glucose 159 H 165 H Calcium C-Reactive Protein Quality VTE Prophylaxis VTE prophylaxis: pharmacologic ordered Hospitalist MIPS Advance Care Plan I have confirmed that the patient's Advanced Care Plan is present, code status is documented, or surrogate decision maker is listed in patient medical record.: Yes Medication Reconciliation I have utilized all available resources to obtain, update and review the patients current medications (includes all prescriptions, OTC, herbals, cannabis, and nutritional supplements).: Yes
[2024-02-19 20:00] VITALS: O2SAT 94
[2024-02-19 21:00] LABS: Glucose Point of Care 178 mg/dl (65-105)
[2024-02-19] MEDS: ATORVASTATIN 10 MG TABLET PO (21:30)
[2024-02-19] MEDS: INSULIN GLARGINE (*BKC) 100 UNITS/ML 10 UNITS SUB-Q (21:31)
[2024-02-19 21:34] VITALS: PULSE 88
[2024-02-19 21:54] VITALS: BP 139/63; PULSE 84; RESP 14; TEMP 37.1; O2SAT 94
[2024-02-20] MEDS: LACTATED RINGERS 1,000 ML 90 ML IV CONT ×2 (03:28→16:28)
[2024-02-20 05:02] LABS: Basophils Percent Auto 0.5 % (0.2-1.2); Eosinophils Absolute Auto 0.2 K/mm3 (0-0.3); Eosinophils Percent Auto 3.8 % (0-4.4); Hematocrit 28.3 % (37.0-47.0); Hemoglobin 8.8 g/dL (12.0-15.0); Immature Granulocyte Absolute 0.03 K/mm3 (0.00-0.031); Immature Granulocyte Percent A 0.5 % (0-0.5); Lymphocytes Absolute Auto 1.56 K/mm3 (0.9-3.2); Lymphocytes Percent Auto 26.7 % (18.3-44.2); Mean Corpuscular HGB Conc 31.1 g/dl (32-36); Mean Corpuscular Hemoglobin 26.1 pg (26-34); Mean Platelet Volume 9.4 fl (7.4-10.4); Monocytes Absolute Auto 0.6 K/mm3 (0.1-0.6); Monocytes Percent Auto 10.8 % (2.6-8.5); Neutrophils Absolute Auto 3.4 K/mm3 (1.3-6.7); Neutrophils Percent Auto 57.7 % (45.5-73.1); Platelet Count Result 236 k/mm3 (150-375); Red Blood Count 3.37 M/mm3 (4.2-5.4); Red Cell Distribution Width 13.7 % (11.5-14.5); White Blood Count 5.9 K/mm3 (4.5-10.0)
[2024-02-20 05:16] LABS: Anion Gap 8 mmol/L (4-12); Blood Urea Nitrogen 34 mg/dL (7-17); Carbon Dioxide 29 mmol/L (22-30); Chloride 107 mmol/L (98-107); Estimated CRCL calculation 16 ml/min; Estimated Glomerular Filt Rate 18; Glucose 128 mg/dL (65-110); Potassium 4.3 mmol/L (3.4-5.0); Sodium 144 mmol/L (137-145)
[2024-02-20 06:00] VITALS: BP 135/64; PULSE 87; RESP 18; TEMP 37.3; O2SAT 94
[2024-02-20 07:53] LABS: Glucose Point of Care 140 mg/dl (65-105)
[2024-02-20 08:06] VITALS: O2SAT 94
[2024-02-20] MEDS: PARoxetine 20 MG TABLET 40 MG PO (08:36)
[2024-02-20] MEDS: NIFEdipine 30 MG TAB.ER.24 90 MG PO (08:36)
[2024-02-20] MEDS: calcitrioL 0.25 MCG CAPSULE PO (08:36)
[2024-02-20] MEDS: HEPARIN SODIUM 5,000 UNITS/ML VIAL 5000 UNITS SUB-Q ×2 (08:36→20:36)
[2024-02-20 08:37] VITALS: PULSE 78
[2024-02-20] MEDS: FERROUS SULFATE 325 MG TABLET DR BY MOUTH (08:37)
[2024-02-20] MEDS: carvediloL 3.125 MG TABLET PO ×2 (08:37→20:37)
[2024-02-20] MEDS: PANTOPRAZOLE 40 MG TABLET PO (08:37)
[2024-02-20 12:00] LABS: Glucose Point of Care 150 mg/dl (65-105)
--- NOTE | 2024-02-20 13:28 | P.PNIM_ITS ---
Progress Note: A&P Assessment and Plan (1) UTI (urinary tract infection): Code(s): N39.0 - Urinary tract infection, site not specified Status: Acute Assessment and Plan: * UA showing cloudy appearance, 2+ urine protein, 1+ urine blood, 3+ leukocyte, greater than 100 urine wbc's. * Urine culture growing MDR Proteus. * Blood cultures NGTD. * WBC's currently wnl and no fevers noted. * Continue Rocephin 2 g for 5 days treatment. * Continue to follow blood cultures. (2) Altered mental status: Code(s): R41.82 - Altered mental status, unspecified Status: Acute Assessment and Plan: * Likely secondary to UTI * Head CT with no acute findings. * Pt appears to be at her baseline currently. * Continue to monitor changes in mentation. * Assist with care. (3) Acute on chronic kidney failure: Code(s): N17.9 - Acute kidney failure, unspecified; N18.9 - Chronic kidney disease, unspecified Status: Acute Assessment and Plan: * Likely secondary to UTI and dehydration * Creatinine currently stable 3.6>>2.6>>2.6. * Continue to hold Lasix 20 mg tablet. * Continue to monitor renal function closely. * Avoid nephrotoxins. (4) Dehydration: Code(s): E86.0 - Dehydration Status: Acute Assessment and Plan: * Patient was given IV fluids while in the ED * Continue IV fluids hydration. * Further mgt as #3 above. (5) Chronic anemia: Code(s): D64.9 - Anemia, unspecified Status: Acute Assessment and Plan: * Continue ferrous sulfate supplementation. * Hemoglobin appears stable currently 8.6>>8.1>>8.6. * Possibly some element of hemodilution from IVF hydration. * Continue to trend. (6) Type 2 diabetes mellitus: Code(s): E11.9 - Type 2 diabetes mellitus without complications Status: Acute Assessment and Plan: * Blood sugars fairly well controlled, < 200. * Hgb A1C 7.5 on 01/16/2024 * Continue accu checks AC/HS * Moderate dose SSI * hypoglycemic protocol in place * Diabetic diet ordered * Continue to hold Tradjenta (7) Hypertension: Code(s): I10 - Essential (primary) hypertension Status: Acute Assessment and Plan: * Blood pressure fairly controlled. * Continue nifedipine and Coreg (8) Gastroesophageal reflux disease: Code(s): K21.9 - Gastro-esophageal reflux disease without esophagitis Status: Acute Assessment and Plan: * Patient on Protonix Time Spent With Patient Time with patient: 15 - 25 minutes Subjective Date/time seen: 02/20/24 13:28 Pt states feels good and has no pain or other distress. Interval history: Patient calm on bedrest, pleasantly confused but in no acute distress. Alert and appears comfortable. Review of Systems Review of Systems: All systems reviewed & are unremarkable except as noted in HPI and below Exam Narrative: General: In no acute distress, well nourished Head: atraumatic. Eyes: PERRLA, sclera clear ENT: moist mucous membranes, nasal passages clear Neck: supple, no JVD, no adenopathy, trachea midline Cardiac: Normal S1 and S2. No murmur. Respiratory: Lungs clear to auscultation, no adventitious lung sounds, currently on room air Gastrointestinal: soft, non-distended, non-tender, normoactive bowel sounds. : voiding without difficulty. Extremities: moves all extremities well, no edema Skin: clean, dry, intact. No wounds or lesions. Neuro: Pleasantly confused. No focal neuro deficits noted. Psych: interactive Objective Data Vital Signs Vital Signs: Vital Signs - 24 hr 02/19/24 14:00 02/19/24 21:34 02/19/24 21:54 Temperature 98.3 F 98.7 F Pulse Rate 84 88 84 Respiratory Rate 16 14 Blood Pressure 162/70 H 139/63 Pulse Oximetry 96 94 Oxygen Delivery Oxygen Flow Rate Fraction of Inspired Oxygen 02/19/24 20:00 02/20/24 06:00 02/20/24 08:06 Temperature 99.1 F Pulse Rate 87 Respiratory Rate 18 Blood Pressure 135/64 Pulse Oximetry 94 94 94 Oxygen Delivery Nasal Cannula Nasal Cannula Oxygen Flow Rate 3 3 Fraction of Inspired Oxygen 32 02/20/24 08:37 Temperature Pulse Rate 78 Respiratory Rate Blood Pressure Pulse Oximetry Oxygen Delivery Oxygen Flow Rate Fraction of Inspired Oxygen Intake/Output Intake/Output: Intake & Output 02/17/24 02/18/24 02/19/24 02/20/24 23:59 23:59 23:59 23:59 Intake Total 3435.5 2940 2705.5 2164 Output Total 2150 1150 2650 800 Balance 1285.5 1790 55.5 1364 Meds/Results Medications: Active Medications Generic Name Dose Route Start Last Admin Trade Name Freq PRN Reason Stop Dose Admin Acetaminophen 650 mg 02/16/24 17:00 Acetaminophen 325 Mg Tablet PO Q6H PRN Mild Pain (1-3) or Fever Atorvastatin Calcium 10 mg 02/17/24 21:00 02/19/24 21:30 Atorvastatin 10 Mg Tablet PO 10 mg HS SURJIT Administration Calcitriol 0.25 mcg 02/18/24 09:00 02/20/24 08:36 Calcitriol 0.25 Mcg Capsule PO 0.25 mcg DAILY SURJIT Administration Carvedilol 3.125 mg 02/17/24 21:00 02/20/24 08:37 Carvedilol 3.125 Mg Tablet PO 3.125 mg Q12HR SURJIT Administration Dextrose 12.5 gm 02/16/24 17:00 Dextrose 50% 25 Gm/50 Ml Syringe IV PUSH PRN PRN Hypoglycemia Protocol Ferrous Sulfate 325 mg 02/18/24 09:00 02/20/24 08:37 Ferrous Sulfate [address] BY MOUTH 325 mg DAILY SURJIT Administration Glucagon 1 mg 02/16/24 17:00 Glucagon For Inj 1 Mg Vial IM PRN PRN Hypoglycemia Protocol Glucose 15 gm 02/16/24 17:00 Glucose Oral Gel 15 Gm Of Glucse In 37.5 Gm Tube PO PRN PRN Hypoglycemia Protocol Heparin Sodium (Porcine) 5,000 units 02/16/24 21:00 02/20/24 08:36 Heparin Sodium 5,000 Units/Ml Vial SUB-Q 5,000 units Q12HR SURJTI Administration Dextrose 1,000 mls @ 100 mls/hr 02/16/24 17:00 Dextrose 5% 1,000 Ml IVPB PRN PRN Hypoglycemia Protocol Lactated Ringer's 1,000 mls @ 90 mls/hr 02/16/24 17:05 02/20/24 03:28 Lr - Lactated Ringers Iv IV CONT 90 mls/hr .Q11H7M SURJIT Administration Ceftriaxone Sodium 2 gm in 100 mls @ 200 mls/hr 02/18/24 11:00 02/19/24 10:08 Rocephin 2 Gm/Ns 100 Ml IVPB Infused Q24H SURJIT Infusion Insulin Aspart 3 - 6 units 02/16/24 17:00 02/20/24 12:57 Insulin Aspart (*Bkc) 100 Units/Ml SUB-Q Not Given TIDWM [facility] Protocol Insulin Aspart 1 - 3 units 02/16/24 21:00 02/19/24 21:33 Insulin Aspart (*Bkc) 100 Units/Ml SUB-Q Not Given HS [facility] Protocol Insulin Glargine 10 units 02/17/24 21:00 02/19/24 21:31 Insulin Glargine (*Bkc) 100 Units/Ml SUB-Q 10 units HS SURJIT Administration Nifedipine 90 mg 02/17/24 14:55 02/20/24 08:36 Nifedipine 30 Mg Tab.Er.24 PO 90 mg DAILY SURJIT Administration Pantoprazole Sodium 40 mg 02/18/24 09:00 02/20/24 08:37 Pantoprazole 40 Mg Tablet PO 40 mg QAM SURJIT Administration Paroxetine HCl 40 mg 02/18/24 09:00 02/20/24 08:36 Paroxetine 20 Mg Tablet PO 40 mg DAILY SURJIT Administration Radiology Results: ITS Impressions Chest X-Ray 02/16/24 14:24 IMPRESSION: 1. Airspace opacities at left lung base with interval improvement, consistent with atelectasis versus pneumonia. Head CT 02/16/24 17:10 IMPRESSION: No acute intracranial process. Labs Labs: Laboratory Results - last 24 hr 02/19/24 02/19/24 02/20/24 16:02 20:57 04:57 WBC 5.9 RBC 3.37 L Hgb 8.8 L Hct 28.3 L MCV 84.0 MCH 26.1 MCHC 31.1 L RDW 13.7 Plt Count 236 MPV 9.4 Immature Gran % (Auto) 0.5 Neut % (Auto) 57.7 Lymph % (Auto) 26.7 [place] % (Auto) 10.8 H Eos % (Auto) 3.8 Baso % (Auto) 0.5 Lymph # (Auto) 1.56 [place] # (Auto) 0.6 Eos # (Auto) 0.2 Baso # (Auto) 0.0 Abs Immat Gran (auto) 0.03 Absolute Neuts (auto) 3.4 Absolute Nucleated RBC 0.000 Nucleated RBC % 0.0 Sodium 144 Potassium 4.3 Chloride 107 Carbon Dioxide 29 Anion Gap 8 BUN 34 H D Creatinine 2.60 H Estim Creat Clear Calc 16 Estimated GFR 18 L Glucose 128 H POC Capillary Glucose 165 H 178 H Calcium 9.0 02/20/24 02/20/24 07:30 11:46 WBC RBC Hgb Hct MCV MCH MCHC RDW Plt Count MPV Immature Gran % (Auto) Neut % (Auto) Lymph % (Auto) [place] % (Auto) Eos % (Auto) Baso % (Auto) Lymph # (Auto) [place] # (Auto) Eos # (Auto) Baso # (Auto) Abs Immat Gran (auto) Absolute Neuts (auto) Absolute Nucleated RBC Nucleated RBC % Sodium Potassium Chloride Carbon Dioxide Anion Gap BUN Creatinine Estim Creat Clear Calc Estimated GFR Glucose POC Capillary Glucose 140 H 150 H Calcium Quality VTE Prophylaxis VTE prophylaxis: pharmacologic ordered Hospitalist MIPS Advance Care Plan I have confirmed that the patient's Advanced Care Plan is present, code status is documented, or surrogate decision maker is listed in patient medical record.: Yes Medication Reconciliation I have utilized all available resources to obtain, update and review the patients current medications (includes all prescriptions, OTC, herbals, danielle abis, and nutritional supplements).: Yes
[2024-02-20 14:00] VITALS: BP 130/62; PULSE 86; RESP 20; TEMP 36.6; O2SAT 94
[2024-02-20] MEDS: cefTRIAXone 2 GM/NS 100 ML 2 GM/100 ML BAG IVPB (16:28)
[2024-02-20 16:37] LABS: Glucose Point of Care 160 mg/dl (65-105)
[2024-02-20] MEDS: INSULIN GLARGINE (*BKC) 100 UNITS/ML 10 UNITS SUB-Q (20:36)
[2024-02-20 20:37] VITALS: PULSE 84
[2024-02-20 20:37] LABS: Glucose Point of Care 135 mg/dl (65-105)
[2024-02-20] MEDS: ATORVASTATIN 10 MG TABLET PO (20:37)
[2024-02-20 22:00] VITALS: BP 124/54; PULSE 90; RESP 20; TEMP 36.3; O2SAT 95
--- NOTE | 2024-02-21 01:35 | PC.NURSE ---
Daylight Savings Time For Daylight Savings Time Ending in the Fall - Clocks are moved back. For Daylight Savings Time Beginning in the Spring - Clocks are moved ahead. For [facility], the time of change occurs at 0200 hrs. Time is taken from the smoke control supervisor. This entry on the patient's chart recognizes the change in time reflected during documentation. Example: 2 entries for vital signs may be charted for 0200 hrs.
[2024-02-21 06:00] VITALS: BP 143/61; PULSE 82; RESP 22; TEMP 36.4; O2SAT 97
[2024-02-21 07:20] LABS: Basophils Percent Auto 0.6 % (0.2-1.2); Eosinophils Absolute Auto 0.1 K/mm3 (0-0.3); Eosinophils Percent Auto 2.4 % (0-4.4); Hematocrit 25.9 % (37.0-47.0); Immature Granulocyte Absolute 0.04 K/mm3 (0.00-0.031); Immature Granulocyte Percent A 0.7 % (0-0.5); Lymphocytes Percent Auto 25.8 % (18.3-44.2); Mean Corpuscular HGB Conc 30.9 g/dl (32-36); Mean Corpuscular Hemoglobin 25.6 pg (26-34); Mean Platelet Volume 10.2 fl (7.4-10.4); Monocytes Absolute Auto 0.6 K/mm3 (0.1-0.6); Monocytes Percent Auto 10.5 % (2.6-8.5); Neutrophils Absolute Auto 3.3 K/mm3 (1.3-6.7); Platelet Count Result 243 k/mm3 (150-375); Red Blood Count 3.12 M/mm3 (4.2-5.4); Red Cell Distribution Width 13.6 % (11.5-14.5); White Blood Count 5.4 K/mm3 (4.5-10.0)
[2024-02-21 08:00] VITALS: O2SAT 94; O2SAT 97
[2024-02-21 08:19] LABS: Anion Gap 8 mmol/L (4-12); Blood Urea Nitrogen 30 mg/dL (7-17); Calcium 8.6 mg/dL (8.4-10.2); Carbon Dioxide 27 mmol/L (22-30); Chloride 107 mmol/L (98-107); Estimated CRCL calculation 16 ml/min; Estimated Glomerular Filt Rate 18; Glucose 142 mg/dL (65-110); Potassium 4.5 mmol/L (3.4-5.0); Sodium 142 mmol/L (137-145)
[2024-02-21 08:22] LABS: Glucose Point of Care 147 mg/dl (65-105)
[2024-02-21] MEDS: PANTOPRAZOLE 40 MG TABLET PO (09:35)
[2024-02-21 09:37] VITALS: PULSE 82
[2024-02-21] MEDS: FERROUS SULFATE 325 MG TABLET DR BY MOUTH (09:37)
[2024-02-21] MEDS: NIFEdipine 30 MG TAB.ER.24 90 MG PO (09:37)
[2024-02-21] MEDS: PARoxetine 20 MG TABLET 40 MG PO (09:37)
[2024-02-21] MEDS: carvediloL 3.125 MG TABLET PO ×2 (09:37→21:59)
[2024-02-21] MEDS: calcitrioL 0.25 MCG CAPSULE PO (09:37)
[2024-02-21] MEDS: HEPARIN SODIUM 5,000 UNITS/ML VIAL 5000 UNITS SUB-Q ×2 (09:40→21:59)
[2024-02-21 12:09] LABS: Glucose Point of Care 202 mg/dl (65-105)
[2024-02-21] MEDS: cefTRIAXone 2 GM/NS 100 ML 2 GM/100 ML BAG IVPB (12:15)
[2024-02-21] MEDS: INSULIN ASPART (*BKC) 100 UNITS/ML SUB-Q (12:21)
[2024-02-21] MEDS: LACTATED RINGERS 1,000 ML 90 ML IV CONT (12:37)
--- NOTE | 2024-02-21 13:26 | P.PNIM_ITS ---
Progress Note: A&P Assessment and Plan (1) UTI (urinary tract infection): Code(s): N39.0 - Urinary tract infection, site not specified Status: Acute Assessment and Plan: * UA showing cloudy appearance, 2+ urine protein, 1+ urine blood, 3+ leukocyte, greater than 100 urine wbc's. * Urine culture growing MDR Proteus. * Blood cultures NGTD. * WBC's currently wnl and no fevers noted. * Continue Rocephin 2 g for 5 days treatment. * Continue to follow blood cultures. (2) Altered mental status: Code(s): R41.82 - Altered mental status, unspecified Status: Acute Assessment and Plan: * Likely secondary to UTI * Head CT with no acute findings. * Pt appears to be at her baseline currently. * Continue to monitor changes in mentation. * Assist with care. (3) Acute on chronic kidney failure: Code(s): N17.9 - Acute kidney failure, unspecified; N18.9 - Chronic kidney disease, unspecified Status: Acute Assessment and Plan: * Likely secondary to UTI and dehydration. * Creatinine currently stable 3.6>>2.6>>2.6. * Appears to be at her baseline. * Continue to hold Lasix 20 mg tablet. * IVF discontinued. * Continue to monitor renal function closely. * Avoid nephrotoxins. (4) Dehydration: Code(s): E86.0 - Dehydration Status: Acute Assessment and Plan: * Treated with IVF. * IV fluids discontinued. * Further mgt as #3 above. * Encourage with PO fluids. (5) Chronic anemia: Code(s): D64.9 - Anemia, unspecified Status: Acute Assessment and Plan: * Continue ferrous sulfate supplementation. * Hemoglobin appears stable currently 8.6>>8.1>>8.6. * Possibly some element of hemodilution from IVF hydration. * Currently stable and we'll trend if needed. (6) Type 2 diabetes mellitus: Code(s): E11.9 - Type 2 diabetes mellitus without complications Status: Acute Assessment and Plan: * Blood sugars fairly well controlled, < 200. * Hgb A1C 7.5 on 01/16/2024 * Continue accu checks AC/HS * Moderate dose SSI * hypoglycemic protocol in place * Diabetic diet ordered * Continue to hold Tradjenta (7) Hypertension: Code(s): I10 - Essential (primary) hypertension Status: Acute Assessment and Plan: * Blood pressure fairly well controlled for the most part. * Continue nifedipine and Coreg (8) Gastroesophageal reflux disease: Code(s): K21.9 - Gastro-esophageal reflux disease without esophagitis Status: Acute Assessment and Plan: * Patient on Protonix Plan We'll consider discharge tomorrow after completion of 5 days IV antibiotics. Time Spent With Patient Time with patient: 15 - 25 minutes Subjective Date/time seen: 02/21/24 13:26 Patient calm on bedrest and denies any distressful symptoms. States she's been watching TV all day and enjoying it. Interval history: Patient calm on bedrest, pleasantly confused but in no acute distress. States she's enjoying watching TV at her motel room where she's currently located. Review of Systems Review of Systems: Unable to obtain accurately given clinical condition as detailed above. Exam Narrative: General: Pleasantly confused. In no acute distress, well nourished Head: atraumatic. Eyes: PERRLA, sclera clear ENT: moist mucous membranes, nasal passages clear Neck: supple, no JVD, no adenopathy, trachea midline Cardiac: Normal S1 and S2. No murmur. Respiratory: Lungs clear to auscultation, no adventitious lung sounds, currently on room air Gastrointestinal: soft, non-distended, non-tender, normoactive bowel sounds. : voiding without difficulty. Extremities: moves all extremities well, no edema Skin: clean, dry, intact. No wounds or lesions. Neuro: Pleasantly confused. No focal neuro deficits noted. Psych: interactive Objective Data Vital Signs Vital Signs: Vital Signs - 24 hr 02/20/24 20:37 02/20/24 22:00 02/21/24 06:00 Temperature 97.4 F L 97.5 F L Pulse Rate 84 90 82 Respiratory Rate 20 22 H Blood Pressure 124/54 L 143/61 H Pulse Oximetry 95 97 Oxygen Delivery Oxygen Flow Rate Fraction of Inspired Oxygen 02/21/24 08:00 02/21/24 09:37 02/21/24 08:00 Temperature Pulse Rate 82 Respiratory Rate Blood Pressure Pulse Oximetry 94 97 Oxygen Delivery Nasal Cannula Nasal Cannula Oxygen Flow Rate 3 3 Fraction of Inspired Oxygen 32 Intake/Output Intake/Output: Intake & Output 02/18/24 02/19/24 02/20/24 02/21/24 23:59 23:59 23:59 22:59 Intake Total 2940 2705.5 3604 1790 Output Total 1150 2650 1350 900 Balance 1790 55.5 2254 890 Meds/Results Medications: Active Medications Generic Name Dose Route Start Last Admin Trade Name Freq PRN Reason Stop Dose Admin Acetaminophen 650 mg 02/16/24 17:00 Acetaminophen 325 Mg Tablet PO Q6H PRN Mild Pain (1-3) or Fever Atorvastatin Calcium 10 mg 02/17/24 21:00 02/20/24 20:37 Atorvastatin 10 Mg Tablet PO 10 mg HS SURJIT Administration Calcitriol 0.25 mcg 02/18/24 09:00 02/21/24 09:37 Calcitriol 0.25 Mcg Capsule PO 0.25 mcg DAILY SURJIT Administration Carvedilol 3.125 mg 02/17/24 21:00 02/21/24 09:37 Carvedilol 3.125 Mg Tablet PO 3.125 mg Q12HR SURJIT Administration Dextrose 12.5 gm 02/16/24 17:00 Dextrose 50% 25 Gm/50 Ml Syringe IV PUSH PRN PRN Hypoglycemia Protocol Ferrous Sulfate 325 mg 02/18/24 09:00 02/21/24 09:37 Ferrous Sulfate [address] BY MOUTH 325 mg DAILY SURJIT Administration Glucagon 1 mg 02/16/24 17:00 Glucagon For Inj 1 Mg Vial IM PRN PRN Hypoglycemia Protocol Glucose 15 gm 02/16/24 17:00 Glucose Oral Gel 15 Gm Of Glucse In 37.5 Gm Tube PO PRN PRN Hypoglycemia Protocol Heparin Sodium (Porcine) 5,000 units 02/16/24 21:00 02/21/24 09:40 Heparin Sodium 5,000 Units/Ml Vial SUB-Q 5,000 units Q12HR SURJIT Administration Dextrose 1,000 mls @ 100 mls/hr 02/16/24 17:00 Dextrose 5% 1,000 Ml IVPB PRN PRN Hypoglycemia Protocol Lactated Ringer's 1,000 mls @ 90 mls/hr 02/16/24 17:05 02/21/24 12:37 Lr - Lactated Ringers Iv IV CONT 90 mls/hr .Q11H7M SURJIT Administration Ceftriaxone Sodium 2 gm in 100 mls @ 200 mls/hr 02/18/24 11:00 02/21/24 12:15 Rocephin 2 Gm/Ns 100 Ml IVPB 200 mls/hr Q24H SURJIT Administration Insulin Aspart 3 - 6 units 02/16/24 17:00 02/21/24 12:21 Insulin Aspart (*Bkc) 100 Units/Ml SUB-Q 3 units TIDWM SURJIT Administration Protocol Insulin Aspart 1 - 3 units 02/16/24 21:00 02/20/24 20:36 Insulin Aspart (*Bkc) 100 Units/Ml SUB-Q Not Given HS SURJIT Protocol Insulin Glargine 10 units 02/17/24 21:00 02/20/24 20:36 Insulin Glargine (*Bkc) 100 Units/Ml SUB-Q 10 units HS SURJIT Administration Nifedipine 90 mg 02/17/24 14:55 02/21/24 09:37 Nifedipine 30 Mg Tab.Er.24 PO 90 mg DAILY SURJIT Administration Pantoprazole Sodium 40 mg 02/18/24 09:00 02/21/24 09:35 Pantoprazole 40 Mg Tablet PO 40 mg QAM SURJIT Administration Paroxetine HCl 40 mg 02/18/24 09:00 02/21/24 09:37 Paroxetine 20 Mg Tablet PO 40 mg DAILY SURJIT Administration Radiology Results: ITS Impressions Chest X-Ray 02/16/24 14:24 IMPRESSION: 1. Airspace opacities at left lung base with interval improvement, consistent with atelectasis versus pneumonia. Head CT 02/16/24 17:10 IMPRESSION: No acute intracranial process. Labs Labs: Laboratory Results - last 24 hr 02/20/24 02/20/24 02/21/24 16:28 20:25 06:57 WBC 5.4 RBC 3.12 L Hgb 8.0 L Hct 25.9 L MCV 83.0 MCH 25.6 L MCHC 30.9 L RDW 13.6 Plt Count 243 MPV 10.2 Immature Gran % (Auto) 0.7 H Neut % (Auto) 60.0 Lymph % (Auto) 25.8 [place] % (Auto) 10.5 H Eos % (Auto) 2.4 Baso % (Auto) 0.6 Lymph # (Auto) 1.40 [place] # (Auto) 0.6 Eos # (Auto) 0.1 Baso # (Auto) 0.0 Abs Immat Gran (auto) 0.04 H Absolute Neuts (auto) 3.3 Absolute Nucleated RBC 0.000 Nucleated RBC % 0.0 Sodium 142 Potassium 4.5 Chloride 107 Carbon Dioxide 27 Anion Gap 8 BUN 30 H Creatinine 2.50 H Estim Creat Clear Calc 16 Estimated GFR 18 L Glucose 142 H POC Capillary Glucose 160 H 135 H Calcium 8.6 02/21/24 02/21/24 07:55 12:03 WBC RBC Hgb Hct MCV MCH MCHC RDW Plt Count MPV Immature Gran % (Auto) Neut % (Auto) Lymph % (Auto) [place] % (Auto) Eos % (Auto) Baso % (Auto) Lymph # (Auto) [place] # (Auto) Eos # (Auto) Baso # (Auto) Abs Immat Gran (auto) Absolute Neuts (auto) Absolute Nucleated RBC Nucleated RBC % Sodium Potassium Chloride Carbon Dioxide Anion Gap BUN Creatinine Estim Creat Clear Calc Estimated GFR Glucose POC Capillary Glucose 147 H 202 H Calcium Quality VTE Prophylaxis VTE prophylaxis: pharmacologic ordered Hospitalist MIPS Advance Care Plan I have confirmed that the patient's Advanced Care Plan is present, code status is documented, or surrogate decision maker is listed in patient medical record.: Yes Medication Reconciliation I have utilized all available resources to obtain, update and review the patients current medications (includes all prescriptions, OTC, herbals, cannabis, and nutritional supplements).: Yes
[2024-02-21 14:00] VITALS: BP 143/62; PULSE 92; RESP 18; TEMP 36.8; O2SAT 90
[2024-02-21 16:37] LABS: Glucose Point of Care 162 mg/dl (65-105)
[2024-02-21 21:59] VITALS: PULSE 91
[2024-02-21] MEDS: ATORVASTATIN 10 MG TABLET PO (21:59)
[2024-02-21] MEDS: INSULIN GLARGINE (*BKC) 100 UNITS/ML 10 UNITS SUB-Q (21:59)
[2024-02-21 22:00] VITALS: BP 165/74; PULSE 90; RESP 16; TEMP 36.9; O2SAT 95
[2024-02-21 22:49] LABS: Glucose Point of Care 149 mg/dl (65-105)
[2024-02-22 06:00] VITALS: BP 173/76; PULSE 84; RESP 22; TEMP 36.4; O2SAT 97
[2024-02-22 07:00] LABS: Basophils Percent Auto 0.8 % (0.2-1.2); Eosinophils Absolute Auto 0.2 K/mm3 (0-0.3); Hematocrit 27.1 % (37.0-47.0); Hemoglobin 8.3 g/dL (12.0-15.0); Immature Granulocyte Absolute 0.06 K/mm3 (0.00-0.031); Immature Granulocyte Percent A 1.1 % (0-0.5); Lymphocytes Percent Auto 28.4 % (18.3-44.2); Mean Corpuscular HGB Conc 30.6 g/dl (32-36); Mean Corpuscular Hemoglobin 25.9 pg (26-34); Mean Corpuscular Volume 84.4 fl (80-100); Monocytes Absolute Auto 0.5 K/mm3 (0.1-0.6); Neutrophils Percent Auto 55.7 % (45.5-73.1); Platelet Count Result 249 k/mm3 (150-375); Red Blood Count 3.21 M/mm3 (4.2-5.4); Red Cell Distribution Width 13.7 % (11.5-14.5); White Blood Count 5.3 K/mm3 (4.5-10.0)
[2024-02-22 07:12] LABS: Anion Gap 8 mmol/L (4-12); Blood Urea Nitrogen 28 mg/dL (7-17); Calcium 8.5 mg/dL (8.4-10.2); Carbon Dioxide 28 mmol/L (22-30); Chloride 105 mmol/L (98-107); Estimated CRCL calculation 19 ml/min; Estimated Glomerular Filt Rate 21; Glucose 108 mg/dL (65-110); Potassium 4.1 mmol/L (3.4-5.0); Sodium 141 mmol/L (137-145)
[2024-02-22 08:00] LABS: Glucose Point of Care 109 mg/dl (65-105)
[2024-02-22] MEDS: carvediloL 3.125 MG TABLET PO ×2 (08:01→20:51)
[2024-02-22] MEDS: PARoxetine 20 MG TABLET 40 MG PO (08:01)
[2024-02-22] MEDS: NIFEdipine 30 MG TAB.ER.24 90 MG PO (08:01)
[2024-02-22] MEDS: PANTOPRAZOLE 40 MG TABLET PO (08:01)
[2024-02-22] MEDS: HEPARIN SODIUM 5,000 UNITS/ML VIAL 5000 UNITS SUB-Q ×2 (08:01→20:50)
[2024-02-22] MEDS: FERROUS SULFATE 325 MG TABLET DR BY MOUTH (08:01)
[2024-02-22] MEDS: calcitrioL 0.25 MCG CAPSULE PO (08:01)
[2024-02-22 11:39] LABS: Glucose Point of Care 100 mg/dl (65-105)
[2024-02-22] MEDS: cefTRIAXone 2 GM/NS 100 ML 2 GM/100 ML BAG IVPB (13:52)
[2024-02-22 14:00] VITALS: BP 106/55; PULSE 89; RESP 18; TEMP 36.3; O2SAT 98
--- NOTE | 2024-02-22 16:05 | P.DS_ITS ---
DS: Admitting Diagnosis Discharge Date 02/22/2024 Admitting Diagnosis Altered Mental Status DS: Discharge Diagnosis Discharge Diagnosis (1) UTI (urinary tract infection): Code(s): N39.0 - Urinary tract infection, site not specified Status: Acute Assessment and Plan: * UA on admission showed cloudy appearance, 2+ urine protein, 1+ urine blood, 3+ leukocyte, greater than 100 urine wbc's. * Urine culture growing MDR Proteus. * Blood cultures NGTD. * WBC's currently wnl and no fevers noted. * Patient completed Rocephin 2 g for 5 days. (2) Altered mental status: Code(s): R41.82 - Altered mental status, unspecified Status: Acute Assessment and Plan: * Likely secondary to UTI. * Head CT with no acute findings. * Pt appears to be at her baseline currently prior to her discharge. (3) Acute on chronic kidney failure: Code(s): N17.9 - Acute kidney failure, unspecified; N18.9 - Chronic kidney disease, unspecified Status: Acute Assessment and Plan: * Likely secondary to UTI and dehydration. * Creatinine trended 3.6>>2.6>>2.6. * Cr 2.2 prior to discharge which appears to be her baseline. * Home Lasix 20 mg tablet held inpatient due to dehydration. (4) Dehydration: Code(s): E86.0 - Dehydration Status: Acute Assessment and Plan: * Treated with IVF. * Lasix held inpatient. * Encourage with PO fluids. (5) Chronic anemia: Code(s): D64.9 - Anemia, unspecified Status: Acute Assessment and Plan: * Continue on ferrous sulfate supplementation inpatient. * Hemoglobin appears stable prior to discharge 8.6>>8.1>>8.6>>8.3 (6) Type 2 diabetes mellitus: Code(s): E11.9 - Type 2 diabetes mellitus without complications Status: Acute Assessment and Plan: * Blood sugars fairly well controlled, < 200. * Hgb A1C 7.5 on 01/16/2024 * Pt was placed on accu checks AC/HS * Moderate dose SSI * hypoglycemic protocol * Diabetic diet. * Patient's Tradjenta held inpatient. (7) Hypertension: Code(s): I10 - Essential (primary) hypertension Status: Acute Assessment and Plan: * Blood pressure fairly well controlled for the most part inpatient on Nifedipine and Coreg. (8) Gastroesophageal reflux disease: Code(s): K21.9 - Gastro-esophageal reflux disease without esophagitis Status: Acute Assessment and Plan: * Patient placed on Protonix inpatient. Plan Discharge back to SNF. DS: Summary Hospital Course Reason for hospitalization: Altered Mental Status. Hospital Course: Patient was transferred to this facility with reports of altered mental status. UA on admission was consistent with a UTI; urine cloudy appearance, 2+ urine protein, 1+ urine blood, 3+ leukocyte, greater than 100 urine wbc's. Blood and urine cultures were obtained with blood cultures NGTD. Her urine culture grew MDR Proteus and patient has completed Rocephin 2 g IV for 5 days, completing her IV abx treatment. Her mentation appears stable with patient alert and appropriate conversation prior to discharge. Pt with no feves and WBC's wnl. She was dehydrated and her Lasix was held, with patient hydrated with IVF. Her kidney function is now baseline. Patient in good spirit to go back to her SNF with no acute distress noted or reported prior to discharge. All her other chronic conditions remained stable as noted above. Status at Discharge Functional status at discharge: bed bound Overall status at discharge: patient is progressing back to baseline Time Spent with Patient Time attestation: Total time spent providing and/or coordinating discharge services: Time spent: Greater than 30 minutes Exam Narrative: General: Pleasantly confused. In no acute distress, well nourished Head: atraumatic. Eyes: PERRLA, sclera clear ENT: moist mucous membranes, nasal passages clear Neck: supple, no JVD, no adenopathy, trachea midline Cardiac: Normal S1 and S2. No murmur. Respiratory: Lungs clear to auscultation, no adventitious lung sounds, currently on room air Gastrointestinal: soft, non-distended, non-tender, normoactive bowel sounds. : voiding without difficulty. Extremities: moves all extremities well, no edema Skin: clean, dry, intact. No wounds or lesions. Neuro: Pleasantly confused. No focal neuro deficits noted. Psych: interactive DS: Data Data Completed and Pending Labs on day of discharge: Labs from last 24 hours 02/22/24 02/22/24 02/22/24 11:22 07:53 06:45 WBC 5.3 RBC 3.21 L Hgb 8.3 L Hct 27.1 L MCV 84.4 MCH 25.9 L MCHC 30.6 L RDW 13.7 Plt Count 249 MPV 10.0 Immature Gran % (Auto) 1.1 H Neut % (Auto) 55.7 Lymph % (Auto) 28.4 [place] % (Auto) 10.0 H Eos % (Auto) 4.0 Baso % (Auto) 0.8 Lymph # (Auto) 1.50 [place] # (Auto) 0.5 Eos # (Auto) 0.2 Baso # (Auto) 0.0 Abs Immat Gran (auto) 0.06 H Absolute Neuts (auto) 3.0 Absolute Nucleated RBC 0.000 Nucleated RBC % 0.0 Sodium 141 Potassium 4.1 Chloride 105 Carbon Dioxide 28 Anion Gap 8 BUN 28 H Creatinine 2.20 H Estim Creat Clear Calc 19 Estimated GFR 21 L Glucose 108 POC Capillary Glucose 100 109 H Calcium 8.5 02/21/24 02/21/24 21:20 16:23 WBC RBC Hgb Hct MCV MCH MCHC RDW Plt Count MPV Immature Gran % (Auto) Neut % (Auto) Lymph % (Auto) [place] % (Auto) Eos % (Auto) Baso % (Auto) Lymph # (Auto) [place] # (Auto) Eos # (Auto) Baso # (Auto) Abs Immat Gran (auto) Absolute Neuts (auto) Absolute Nucleated RBC Nucleated RBC % Sodium Potassium Chloride Carbon Dioxide Anion Gap BUN Creatinine Estim Creat Clear Calc Estimated GFR Glucose POC Capillary Glucose 149 H 162 H Calcium Discharge Plan Discharge Attending physician on discharge: Sunil Boland Consulting providers: Kassy Ruth Discharging Clinician: Wilfred Rosario Anticipated Discharge Date/Time: 02/22/24 16:22 Patient Disposition: SNF Activity: as tolerated Diet: heart healthy and diabetic Patient Language: Martiniquais Stand Alone Forms: General Discharge Information Discharge Medications: Continued atorvastatin 10 mg tablet 10 mg PO HS carvedilol 3.125 mg tablet 3.125 mg PO BID famotidine 20 mg Tablet 40 mg PO DAILY furosemide 20 mg tablet 40 mg PO DAILY paroxetine HCl 40 mg tablet 40 mg PO DAILY ferrous sulfate 325 mg (65 mg iron) Capsule, Extended Release 325 mg PO DAILY insulin glargine [Lantus Solostar U-100 Insulin] 100 unit/mL (3 mL) insulin pen 10 unit SUBCUT HS cholecalciferol (vitamin D3) [Vitamin D3] 50 mcg (2,000 unit) Capsule 50 mcg PO WEEKLY Rx Instructions: Weekly on THURSDAY insulin lispro 100 unit/mL Insulin Pen 1 sliding scale dose SUBCUT USEASDIRECTD Rx Instructions: sliding scale before meals and at HS 70-150: 0 units, 151-200: 3 units, 201-250:6 units, 251-300: 8 units, 301- 350: 10 units, 351-400:12 units, >400 give 14 units and call MD and recheck glucose in one hour 151-200: 3 units 201-250: 6 units 251-300: 8 units 301-350: 10 units 351-400: 12 units >400: give 14 units and call MD, recheck glucose in 1 hour nifedipine 90 mg tablet extended release 24hr 90 mg PO DAILY ipratropium-albuterol 0.5 mg-3 mg(2.5 mg base)/3 mL Solution For Nebulization 3 ml INHALATION Q4H PRN (Reason: Shortness Of Breath Or Wheezing) calcitriol 0.25 mcg Capsule 0.25 mcg PO DAILY Tradjenta 5 mg tablet 5 mg PO DAILY Date of admission: 02/17/24 09:10 Primary Care Provider: Bryan Mariano Admitting Provider: Robyn Heard Attending physician on admission: Tasha Norton Condition: Stable Quality If No VTE Prophylaxis Answer both mechanical and pharmacologic: Reason no mechanical VTE proph: low risk/not indicated Reason no pharmacologic proph: low risk/not indicated Hospitalist MIPS Heart Failure (Exclusion) Patient has history of Heart Transplant or Left Ventricular Assistive Device?: No IF YES, STOP HERE Heart Failure (Qualifier) Patient has current or prior documentation of LVEF less than or equal to 40%, or mod/servere depressed LVSF?: No IF NO, STOP HERE If Yes, Heart Failure (Qualifier) Patient was prescribed or already taking an Angiotensin-Converting Enzyme (ADOLFO) Inhibitor, or Antiotensin Receptor Bernard (ARB): No Patient was prescribed or already taking bisoprolol, carvedilol, or sustained release metoprolol succinate: Yes If Medications not prescribed/taking Reason patient not prescribed/taking ADOLFO or ARB: Patient reasons: pt declined or other pt reason (Pt's PCP manages her meds at [facility] and currently pt does not qualify for ADOLFO/ARB)
[2024-02-22 16:31] LABS: Glucose Point of Care 104 mg/dl (65-105)
--- NOTE | 2024-02-22 18:48 | PC.NURSE ---
Called report to MANAGER TAX at [place], was not provided fax number to send over information.
--- NOTE | 2024-02-22 19:00 | PC.NURSE ---
Mer pulled at [phone]- Wilfred, JENNY said ok to send patient right after pulling hurst.
[2024-02-22 19:26] LABS: Glucose Point of Care 106 mg/dl (65-105)
[2024-02-22 20:03] VITALS: BP 175/79; PULSE 81; RESP 22; TEMP 36.6; O2SAT 95
[2024-02-22 20:51] VITALS: PULSE 88
[2024-02-22] MEDS: ATORVASTATIN 10 MG TABLET PO (20:51)
[2024-02-22 22:57] LABS: Glucose Point of Care 113 mg/dl (65-105)
== END 2024-02-22 23:10 | DRG 690 ==
LOC: ANHED 17:25 → ANH3MEDSUR 17:29
PROVIDERS: Nurse Practitioner Acute Care; Physician Assistant; Admitting Provider Internal Medicine; Emergency Provider Emergency Medicine; PCP Internal Medicine; Visit Provider Nurse Practitioner Adult Health
DX: N39.0 Urinary tract infection, site not specified (principal); N17.9 Acute kidney failure, unspecified; N18.4 Chronic kidney disease, stage 4 (severe); B96.4 Proteus (mirabilis) (morganii) as the cause of diseases classified elsewhere; D63.1 Anemia in chronic kidney disease; E86.0 Dehydration; E11.22 Type 2 diabetes mellitus with diabetic chronic kidney disease; E11.51 Type 2 diabetes mellitus with diabetic peripheral angiopathy without gangrene; I12.9 Hypertensive chronic kidney disease with stage 1 through stage 4 chronic kidney disease, or unspecified chronic kidney disease; K21.9 Gastro-esophageal reflux disease without esophagitis; Z79.4 Long term (current) use of insulin; Z79.84 Long term (current) use of oral hypoglycemic drugs; Z96.643 Presence of artificial hip joint, bilateral; Z90.49 Acquired absence of other specified parts of digestive tract
CPT/HCPCS: 36415; 70450; 71046; 80048; 80053; 81001; 82948; 83735; 84443; 85025; 85652; 86140; 87040; 87086; 87186; 93005; 96372; 96374; 99285; A9270; G0378; J0696; J1644; J1815; J7030; J7120